=== PATIENT | female | born 1985 | race Caucasian/White ===

== ENCOUNTER 2020-09-19 14:25 | Emergency (ER) | payer OTHER, SELFPAY ==
--- NOTE | ~2020-09-19 | XR_ITS ---
EXAMINATION: XR CHEST CLINICAL INFORMATION: Chest wall pain COMPARISON: Chest radiographs 08/31/2010 TECHNIQUE: Portable upright AP view of the chest was obtained. FINDINGS: The lungs are clear. There is no pneumothorax, pleural reaction, or effusion. There is no airspace consolidation or groundglass opacity. Tapering at the right cardiophrenic angle is similar to prior study, likely areolar tissue. The hilar and mediastinal contours and bony structures are unremarkable. XR/XR chest 1V IMPRESSION: Unremarkable examination.
[2020-09-19 15:01] VITALS: BP 129/68; PULSE 85; RESP 18; TEMP 36.8; BMI 41.9
--- NOTE | 2020-09-19 15:43 | ED.GENADULT ---
HPI - General Adult General Chief complaint: General Medical Stated complaint: chest wall pain, back pain Time Seen by Provider: 09/19/20 15:43 Source: patient Mode of arrival: ambulatory Limitations: no limitations History of Present Illness HPI narrative: Female who reports history of cholecystectomy otherwise no significant past medical or surgical history presents ambulatory with complaint of state for the past several days he has had a cough and when she takes a deep breath and she will get pain on the right side of the chest in the pectoralis region and also from the cough she is getting pain in the epigastric region when she does cough. Does report body aches in the upper back and lower back. She otherwise denies any recent travel or sick contacts. No lower extremity swelling, shortness of breath, fever. Onset (ago): day(s) Location: chest Radiation: non-radiation Severity: moderate Severity scale (1-10): 3 Quality: aching Pain Consistency: intermittent Relieving factors: none Exacerbating factors: none Associated symptoms: chest pain and cough Treatments prior to arrival: none Related Data Previous Rx's Medication Instructions Recorded albuterol sulfate 2 puff INHALATION Q4-6H PRN #6.7 g 09/19/20 benzonatate [Tessalon Perles] 100 mg PO BID PRN #10 cap 09/19/20 naproxen 500 mg PO BID PRN #10 tab 09/19/20 Allergies Allergy/AdvReac Type Severity Reaction Status Date / Time No Known Allergies Allergy Unverified 03/13/20 15:35 [No Known Allergies*] Review of Systems Review of Systems: Constitutional: No Weight loss, No Fever, No Chills, No Night Sweats, No Fatigue, No Malaise ENT/Mouth: No Hearing loss, No Ear Pain, No Nasal Congestion, No Sinus Pain, No Hoarseness, No sore throat, No Rhinorrhea, No Swallowing Difficulty Eyes: No Eye Pain, No Swelling, No Redness, No Foreign Body, No Discharge, No Vision Changes Cardiovascular: + Chest Pain, No SOB, No Dyspnea on Exertion, No Orthopnea, No Edema, No Palpitations Respiratory: + Cough, No Sputum, No Wheezing, No Dyspnea Gastrointestinal: No Nausea, No Vomiting, No Diarrhea, No Constipation, No abdominal Pain, No Hematochezia, No Melena Genitourinary: no irregular bleeding, No Dysuria, No Urinary Frequency, No Hematuria, No Urinary Incontinence, No Urgency, No Flank Pain, No Urinary Flow Changes, No Hesitancy Musculoskeletal: No joint pain, No Myalgias, No Joint Swelling Skin: No Skin Lesions, No rash Neuro: No Weakness, No Numbness, No Paresthesias, No Loss of Consciousness, No Dizziness, No Headache Psych: No Social Issues Heme/Lymph: No Bruising, No Bleeding,No Lymphadenopathy Endocrine: No Polyuria, No Polydipsia, No Temperature Intolerance Yes all other systems are reviewed and are negative [facility] Past Medical History Medical History (Updated 09/19/20 @ 17:29 by Rommel Jack NP) Cholecystectomy planned Social History Social History Use of substances other than those prescribed or required for medical reasons: No Advance Directives: No Advance Directives Information Provided: No Physical Exam Vital Signs: Vital Signs: Last Vital Signs Temp 99.5 F 09/19/20 16:31 Pulse 113 H 09/19/20 16:31 Resp 18 09/19/20 16:31 BP 124/94 H 09/19/20 16:31 Pulse Ox 98 09/19/20 16:31 Body Mass Index 41.9 Reviewed Const: Other: Walked into room from patient sitting up with her headphones in and on her tablet. General: cooperative and healthy appearing; No acute distress or intoxicated appearing Nutritional Appearance: average body habitus Orientation/consciousness: patient oriented x3 HENMT: Head: Yes normal to inspection Ears: hearing grossly normal bilaterally Eyes: General: appearance normal, both eyes and all related structures Visual Hudson: normal visual hudson by confrontation Neck: Neck: Yes normal visual inspection, No positive Brudzinski's sign, No positive Kernig's sign and No tender Thyroid: Thyroid normal Chest: Chest palpation & inspection: normal inspection of the chest and tenderness pectoral muscle on the left Resp: Effort & Inspection: normal respiratory effort Auscultation: clear to auscultation bilaterally Cardio: Jugular venous distension: no JVD Rhythm: regular rhythm Heart sounds: S1 normal heart sound present and S2 normal heart sound present GI: Inspection: Yes normal to inspection Palpation (GI): Soft to palpation Percussion: Yes normal to percussion Auscultation: normal bowel sounds : General: Yes no CVA tenderness Back/Spine/Pelvis: Back: no CVA tenderness Skin: General skin exam: no rashes or lesions noted Neuro: General: patient oriented x3 Extrem: General: Yes normal to inspection Course Reevaluation(s) Reevaluation #1: Pain more consistent with myalgias/musculoskeletal and less likely acute ACS/pulmonary embolism PERC negative. Will check EKG, labs, chest x-ray and COVID swab. Medical Decision Making Lab Data Result diagrams: 09/19/20 16:14 09/19/20 16:14 Labs: Lab Results 09/19/20 09/19/20 09/19/20 Range/Units 16:14 16:14 16:14 WBC 7.7 (4.8-10.8) X10*3/uL RBC 4.90 (4.20-5.50) X10*6/uL Hgb 12.0 (12.0-16.0) g/dl Hct 39.2 (37-47) % MCV 80.0 (80-98) fL MCH 24.5 L (27.0-33.0) pg MCHC 30.6 L (31.0-35.0) g/dl RDW 15.6 (11.0-16.0) % Plt Count 261 (160-400) X10*3/uL MPV 11.3 (9.4-12.3) fL Immature Gran % (Auto) 0.3 (0.0-0.4) % Neut % (Auto) 66.1 (45-73) % Lymph % (Auto) 23.0 (20-40) % Hunt % (Auto) 5.7 (2-11) % Eos % (Auto) 4.6 H (0-4) % Baso % (Auto) 0.3 (0-2) % Lymph # (Auto) 1.8 (1.2-4.9) X10*3/uL Hunt # (Auto) 0.4 (0.1-1.2) X10*3/uL Eos # (Auto) 0.4 (0.0-0.4) X10*3/uL Baso # (Auto) 0.0 (0.0-0.2) X10*3/uL Abs Immat Gran (auto) 0.02 (0.00-0.03) X10*3/uL Absolute Neuts (auto) 5.1 (2.0-8.3) X10*3/uL Absolute Nucleated RBC 0.000 (0.0-0.012) X10*3/uL Nucleated RBC % (auto) 0.0 (0.0-0.2) /100WBC PT 13.0 (10.8-13.0) SEC INR 1.1 (0.9-1.1) APTT 32.6 (24.1-38.0) SEC Sodium 141 (135-145) mmol/L Potassium 3.7 (3.3-5.1) mmol/L Chloride 105 (96-108) mmol/L Carbon Dioxide 26 (22-29) mmol/L Anion Gap 14 (12-20) BUN 14 (9-16) mg/dL Creatinine 0.74 (0.5-1.4) mg/dL Estim Creat Clear Calc 138.6 Estimated GFR > 60 Random Glucose 126 H (60-115) mg/dL Calcium 9.1 (8.4-10.2) mg/dL Total Bilirubin 0.2 (0.0-1.0) mg/dL AST 22 (5-31) U/L ALT 40 H (0-31) U/L Alkaline Phosphatase 88 (39-117) U/L Troponin I High Sens (<3.5-17.0) ng/L Total Protein 7.3 (6.5-8.0) g/dL Albumin 4.4 (3.5-5.0) g/dL Urine Color Urine Appearance Urine pH (5.0-8.0) Ur Specific Harrell (1.005-1.025) Urine Protein (NEG-TRACE) MG/DL Urine Glucose (UA) (NEG) MG/DL Urine Ketones (NEG) MG/DL Urine Blood (NEG) Urine Nitrite (NEG) Ur Leukocyte Esterase (NEG) Urine Test (NEGATIVE) COVID-19 (GUILLAUME) (Negative) COVID-19 Clin Com 09/19/20 09/19/20 09/19/20 Range/Units 16:14 16:14 16:14 WBC (4.8-10.8) X10*3/uL RBC (4.20-5.50) X10*6/uL Hgb (12.0-16.0) g/dl Hct (37-47) % MCV (80-98) fL MCH (27.0-33.0) pg MCHC (31.0-35.0) g/dl RDW (11.0-16.0) % Plt Count (160-400) X10*3/uL MPV (9.4-12.3) fL Immature Gran % (Auto) (0.0-0.4) % Neut % (Auto) (45-73) % Lymph % (Auto) (20-40) % Hunt % (Auto) (2-11) % Eos % (Auto) (0-4) % Baso % (Auto) (0-2) % Lymph # (Auto) (1.2-4.9) X10*3/uL Hunt # (Auto) (0.1-1.2) X10*3/uL Eos # (Auto) (0.0-0.4) X10*3/uL Baso # (Auto) (0.0-0.2) X10*3/uL Abs Immat Gran (auto) (0.00-0.03) X10*3/uL Absolute Neuts (auto) (2.0-8.3) X10*3/uL Absolute Nucleated RBC (0.0-0.012) X10*3/uL Nucleated RBC % (auto) (0.0-0.2) /100WBC PT (10.8-13.0) SEC INR (0.9-1.1) APTT (24.1-38.0) SEC Sodium (135-145) mmol/L Potassium (3.3-5.1) mmol/L Chloride (96-108) mmol/L Carbon Dioxide (22-29) mmol/L Anion Gap (12-20) BUN (9-16) mg/dL Creatinine (0.5-1.4) mg/dL Estim Creat Clear Calc Estimated GFR Random Glucose (60-115) mg/dL Calcium (8.4-10.2) mg/dL Total Bilirubin (0.0-1.0) mg/dL AST (5-31) U/L ALT (0-31) U/L Alkaline Phosphatase (39-117) U/L Troponin I High Sens < 3.5 (<3.5-17.0) ng/L Total Protein (6.5-8.0) g/dL Albumin (3.5-5.0) g/dL Urine Color YELLOW Urine Appearance CLEAR Urine pH 6.0 (5.0-8.0) Ur Specific Harrell >= 1.030 H (1.005-1.025) Urine Protein NEG (NEG-TRACE) MG/DL Urine Glucose (UA) NEG (NEG) MG/DL Urine Ketones NEG (NEG) MG/DL Urine Blood TRACE (NEG) Urine Nitrite NEG (NEG) Ur Leukocyte Esterase NEG (NEG) Urine Test (NEGATIVE) COVID-19 (GUILLAUME) Negative (Negative) COVID-19 Clin Com See Note 09/19/20 Range/Units 16:14 WBC (4.8-10.8) X10*3/uL RBC (4.20-5.50) X10*6/uL Hgb (12.0-16.0) g/dl Hct (37-47) % MCV (80-98) fL MCH (27.0-33.0) pg MCHC (31.0-35.0) g/dl RDW (11.0-16.0) % Plt Count (160-400) X10*3/uL MPV (9.4-12.3) fL Immature Gran % (Auto) (0.0-0.4) % Neut % (Auto) (45-73) % Lymph % (Auto) (20-40) % Hunt % (Auto) (2-11) % Eos % (Auto) (0-4) % Baso % (Auto) (0-2) % Lymph # (Auto) (1.2-4.9) X10*3/uL Hunt # (Auto) (0.1-1.2) X10*3/uL Eos # (Auto) (0.0-0.4) X10*3/uL Baso # (Auto) (0.0-0.2) X10*3/uL Abs Immat Gran (auto) (0.00-0.03) X10*3/uL Absolute Neuts (auto) (2.0-8.3) X10*3/uL Absolute Nucleated RBC (0.0-0.012) X10*3/uL Nucleated RBC % (auto) (0.0-0.2) /100WBC PT (10.8-13.0) SEC INR (0.9-1.1) APTT (24.1-38.0) SEC Sodium (135-145) mmol/L Potassium (3.3-5.1) mmol/L Chloride (96-108) mmol/L Carbon Dioxide (22-29) mmol/L Anion Gap (12-20) BUN (9-16) mg/dL Creatinine (0.5-1.4) mg/dL Estim Creat Clear Calc Estimated GFR Random Glucose (60-115) mg/dL Calcium (8.4-10.2) mg/dL Total Bilirubin (0.0-1.0) mg/dL AST (5-31) U/L ALT (0-31) U/L Alkaline Phosphatase (39-117) U/L Troponin I High Sens (<3.5-17.0) ng/L Total Protein (6.5-8.0) g/dL Albumin (3.5-5.0) g/dL Urine Color Urine Appearance Urine pH (5.0-8.0) Ur Specific Harrell (1.005-1.025) Urine Protein (NEG-TRACE) MG/DL Urine Glucose (UA) (NEG) MG/DL Urine Ketones (NEG) MG/DL Urine Blood (NEG) Urine Nitrite (NEG) Ur Leukocyte Esterase (NEG) Urine Test NEGATIVE (NEGATIVE) COVID-19 (GUILLAUME) (Negative) COVID-19 Clin Com Imaging Data Chest x-ray: Radiologist's impression: [address] [id number] ReportSigned Patient: Rebeca Cabrera#: [id number]: 1985Acct:[id number]/Sex: 34 / FADM Date: 09/19/20Loc: [address]: Ordering Physician: Rommel Jack NP Date of Service: 09/19/20 Procedure(s): XR chest 1V Accession Number(s): [id number] cc: Rommel Jack PRIVATE WE[employer] ADVISOR~ EXAMINATION: XR CHEST CLINICAL INFORMATION: Chest wall pain COMPARISON: Chest radiographs 08/31/2010 TECHNIQUE: Portable upright AP view of the chest was obtained. FINDINGS: The lungs are clear. There is no pneumothorax, pleural reaction, or effusion. There is no airspace consolidation or groundglass opacity. Tapering at the right cardiophrenic angle is similar to prior study, likely areolar tissue. The hilar and mediastinal contours and bony structures are unremarkable. XR/XR chest 1V IMPRESSION: Unremarkable examination. Dictated By:KALPANA GUERRERO MDSigned By:<Electronically signed by KALPANA GUERRERO MD in OV>09/19/20 1713 DD/ [id number]/TT: Medical Receptionist Biller: KAREN ECG Data Interpretation: Normal sinus rhythm Rate [address] segment elevation No previous Discharge Plan Discharge Clinical Impression: Cough, Atypical chest pain Patient Disposition: Home, Self-Care Instructions: Acute Cough (ED), Chest Wall Pain (ED) Additional Instructions: If blood work was overall reassuring including her chest x-ray and EKG The pain that you are having the chest is from the muscle strain from the cough Drink plenty of fluids Take [id number] cough medicine as reviewed You can use inhaler to help with cough Warm compresses chest Return if any concerns or worsening symptoms Otherwise follow up with primary care DrDominique discuss Thank you Prescriptions: New albuterol sulfate 90 mcg/actuation HFA aerosol inhaler 2 puff inhalation Q4-6H PRN (Reason: shortness of breath or wheezing) Qty: 6.7 RF: 0 benzonatate [Tessalon Perles] 100 mg capsule 100 mg PO BID PRN (Reason: cough) Qty: 10 RF: 0 naproxen 500 mg tablet 500 mg PO BID PRN (Reason: pain) Qty: 10 RF: 0 Referrals: Lisette Reynaga MD [Primary Care Provider] - 1 week
--- NOTE | 2020-09-19 15:50 | ECG_ITS ---
Test Reason : CHEST PAIN Blood Pressure : / mmHG Vent. Rate : 086 BPM Atrial Rate : 086 BPM P-R Int : 148 ms QRS Dur : 084 ms QT Int : 368 ms P-R-T Axes : 040 018 005 degrees QTc Int : 440 ms Normal sinus rhythm Normal ECG When compared with ECG of 19-APR-2013 19:09, No significant change was found Referred By: Rommel Jack Electronically Signed By:LINDA PATINO
[2020-09-19 16:20] LABS: MANUAL DIFF FLAG NO
[2020-09-19 16:23] LABS: Basophils Percent Auto 0.3 % (0-2); Eosinophils Absolute Auto 0.4 X10*3/uL (0.0-0.4); Eosinophils Percent Auto 4.6 % (0-4); Hematocrit 39.2 % (37-47); Imm Gran Abs Auto 0.02 X10*3/uL (0.00-0.03); Imm Gran Pct Auto 0.3 % (0.0-0.4); Lymphocytes Absolute Auto 1.8 X10*3/uL (1.2-4.9); Mean Corpuscular HGB Conc 30.6 g/dl (31.0-35.0); Mean Corpuscular Hemoglobin 24.5 pg (27.0-33.0); Mean Platelet Volume 11.3 fL (9.4-12.3); Monocytes Absolute Auto 0.4 X10*3/uL (0.1-1.2); Monocytes Percent Auto 5.7 % (2-11); Neutrophils Absolute Auto 5.1 X10*3/uL (2.0-8.3); Neutrophils Percent Auto 66.1 % (45-73); Platelet Count 261 X10*3/uL (160-400); Red Cell Distribution Width 15.6 % (11.0-16.0); White Blood Count 7.7 X10*3/uL (4.8-10.8)
[2020-09-19 16:31] VITALS: BP 124/94; PULSE 113; RESP 18; TEMP 37.5; O2SAT 98
[2020-09-19 16:34] LABS: INTERNATIONAL NORM RATIO 1.1 (0.9-1.1); UPreg QC Valid YES; Urine Pregnancy NEGATIVE (NEGATIVE)
[2020-09-19 16:35] LABS: Glucose Urine UA NEG (NEG); Leukocyte Esterase Urine NEG (NEG); Nitrite Urine NEG (NEG); Specific Gravity - Urine >= 1.030 (1.005-1.025); Urine Blood TRACE (NEG); Urine Ketones NEG (NEG); Urine Protein NEG (NEG-TRACE)
[2020-09-19 16:36] LABS: Partial Thromboplastin Time 32.6 SEC (24.1-38.0)
[2020-09-19 16:40] LABS: COVID-19 Test Negative (Negative); IDNOW Serial# 9DD0AD1C
[2020-09-19 16:44] LABS: Alanine Aminotransferase 40 U/L (0-31); Albumin Level 4.4 g/dL (3.5-5.0); Alkaline Phosphatase 88 U/L (39-117); Anion Gap 14 (12-20); Aspartate Amino Transferase 22 U/L (5-31); Bilirubin Total 0.2 mg/dL (0.0-1.0); Blood Urea Nitrogen 14 mg/dL (9-16); Calcium 9.1 mg/dL (8.4-10.2); Carbon Dioxide 26 mmol/L (22-29); Chloride 105 mmol/L (96-108); Creatinine Clr Calc Pharmacy 138.6; Estimated Glomerular Filt Rate > 60; Glucose Random 126 mg/dL (60-115); Potassium 3.7 mmol/L (3.3-5.1); Sodium 141 mmol/L (135-145); Total Protein 7.3 g/dL (6.5-8.0)
[2020-09-19 16:48] LABS: Troponin-I High Sensitivity < 3.5 ng/L (<3.5-17.0)
[2020-09-19 16:51] LABS: Appearance Urine CLEAR; Color Urine YELLOW
[2020-09-19] MEDS: Acetaminophen 325 MG TABLET 650 MG PO (17:40)
[2020-09-19 17:44] LABS: RBC Urine 0-2 /HPF (0); Squamous Epithelial Cell Urine 2+ /LPF; WBC Urine 0 /HPF (0-4)
== END 2020-09-19 19:04 | disposition home or self-care (01) ==
PROVIDERS: Nurse Practitioner Primary Care; Emergency Provider Emergency Medicine; PCP Internal Medicine
DX: R07.89 Other chest pain (principal); R05 Cough; M54.5 Low back pain; Z20.822 Contact with and (suspected) exposure to COVID-19; Z79.899 Other long term (current) drug therapy
CPT/HCPCS: 36415; 71045; 80053; 81001; 81025; 84484; 85025; 85610; 85730; 87635; 93005; 99283; 99284

== ENCOUNTER 2020-12-11 13:17 | Outpatient (REF) | payer OTHER, SELFPAY ==
[2020-12-11 15:37] LABS: HCG Quantitative 676 mIU/mL
== END 2020-12-11 13:18 | disposition home or self-care (01) ==
LOC: HO.LAB 13:17
PROVIDERS: PCP Internal Medicine; Visit Provider Advanced Practice Midwife
DX: O20.9 Hemorrhage in early pregnancy, unspecified (principal)
CPT/HCPCS: 36415; 81025; 84702; 99202

== ENCOUNTER 2020-12-13 10:50 | Outpatient (REF) | payer OTHER, SELFPAY ==
[2020-12-13 11:41] LABS: HCG Quantitative 1011 mIU/mL
== END 2020-12-13 10:51 | disposition home or self-care (01) ==
LOC: HO.LAB 10:50
PROVIDERS: PCP Internal Medicine; Visit Provider Advanced Practice Midwife
DX: O20.9 Hemorrhage in early pregnancy, unspecified (principal)
CPT/HCPCS: 36415; 84702; 86850; 86900; 86901

== ENCOUNTER 2020-12-13 11:03 | Emergency (ER) | payer OTHER, SELFPAY ==
--- NOTE | ~2020-12-13 | US_ITS ---
EXAMINATION: US OB PELVIC AND TRANSVAGINAL CLINICAL INFORMATION: , rule out ectopic. Quant 1011. COMPARISON: None TECHNIQUE: Transabdominal and transvaginal imaging of pelvis is performed. FINDINGS: The uterus is retroverted measuring 8.95 cm in length, 4.67 cm in AP. Endometrial thickness measures 2.15 cm. No intrauterine gestational sac seen. The right ovary is removed. The left ovary measures 3.7 x 2.3 x 3.0 cm and volume 13.44 mL. There is an anechoic cyst measuring 2.0 x 1.5 x 1.8 cm. Within the left adnexa, there is an anechoic cystic structure with echogenic thick wall measuring 0.50 x 0.61 x 0.48 cm suspicious for an ectopic gestational sac with likely yolk sac. It measures approximately 5 weeks and 0 days. No pole seen. There is a left paraovarian cyst measuring 1.2 x 1.2 x 1.2 cm. There is small amount of free fluid in the cul-de-sac. US/US OB pelvic and transvaginal IMPRESSION: Suspect left adnexa ectopic measuring 5 weeks 0 days. 2.0 cm ovarian cyst and a left paraovarian cyst measuring 1.2 cm. The right ovary is not visualized likely surgically removed. The uterus is unremarkable except for a thickened endometrium measuring 2.15 cm and no intrauterine gestational sac. Recommend followup ultrasound in 2 weeks.
[2020-12-13 11:20] VITALS: BP 121/60; PULSE 92; RESP 18; TEMP 37; O2SAT 96; BMI 43.5
--- NOTE | 2020-12-13 12:32 | ED.FEMALEGU ---
HPI - Female Genitourinary General Chief complaint: Vaginal Bleeding <DOMINIQUE Villarreal - Last Filed: 12/13/20 18:00> Stated complaint: 5 weeks , spotting <DOMINIQUE Villarreal - Last Filed: 12/13/20 18:00> Time Seen by Provider: 12/13/20 11:25 <DOMINIQUE Villarreal - Last Filed: 12/13/20 18:00> History of Present Illness HPI Narrative: Patient complains of some spotting, she is 5 weeks , she was seen in the [facility] by the nurse practitioner who did a 1st beta hCG and told her to come back today for a 2nd beta hCG. The patient says she does not have any spotting today but she has had very mild intermittent pelvic discomfort, she has no discomfort at this time no nausea or vomiting no dysuria <DOMINIQUE Villarreal - Last Filed: 12/13/20 18:00> Related Data Home medications: Previous Rx's Medication Instructions Recorded albuterol sulfate 2 puff INHALATION Q4-6H PRN #6.7 g 09/19/20 <DOMINIQUE Villarreal - Last Filed: 12/13/20 18:00> Allergies/Adverse reactions: Allergies Allergy/AdvReac Type Severity Reaction Status Date / Time No Known Allergies Allergy Verified 12/11/20 13:23 [No Known Allergies*] <DOMINIQUE Villarreal - Last Filed: 12/13/20 18:00> Review of Systems Review of Systems: , spotting, and mild pelvic intermittent discomfort other positives Negative no fever no chills no dizziness no weakness no fainting no feeling faint no headache no neck pain no chest pain no shortness of breath no heavy bleeding no cramping no pain now no nausea vomiting or diarrhea no dysuria no frequency no skin rash <DOMINIQUE Villarreal Last Filed: 12/13/20 18:00> Yes all other systems are reviewed and are negative <DOMINIQUE Villarreal Last Filed: 12/13/20 18:00> PMFSH Past Medical History Source: nursing notes reviewed <DOMINIQUE Villarreal Last Filed: 12/13/20 18:00> Medical History: Medical History (Updated 12/13/20 @ 20:37 by DOMINIQUE Rivers) Anxiety Asthma section wound complication Cholecystectomy planned Gall bladder stones Obesity <DOMINIQUE Villarreal Last Filed: 12/13/20 18:00> Surgical History: Surgical History (Updated 12/13/20 @ 18:44 by Heri Meraz MD) Hx of removal of ovary <DOMINIQUE Villarreal - Last Filed: 12/13/20 18:00> Family History Family History: Family History (Updated 12/11/20 @ 13:35 by Kyle Dsouza [facility]) Maternal Grandmother Cancer Father Heart attack <DOMINIQUE Villarreal - Last Filed: 12/13/20 18:00> Social History Social History: Social History (Updated 12/11/20 @ 13:31 by Kyle Dsouza [facility]) Alcohol intake: never Patient Tobacco Use Status: Current someday Tobacco user Cigarettes Per Day: 2 Advance Directives: Yes Advance Directives Information Provided: Yes Advance Directives on File: No Patient : Yes Gender identity: female <DOMINIQUE Villarreal - Last Filed: 12/13/20 18:00> Physical Exam Vital Signs: Vital Signs: Last Vital Signs Temp 98.1 F 12/13/20 20:13 Pulse 73 12/13/20 20:13 Resp 18 12/13/20 20:13 BP 130/57 L 12/13/20 20:13 Pulse Ox 98 12/13/20 20:13 Body Mass Index 43.5 <DOMINIQUE Villarreal - Last Filed: 12/13/20 18:00> Vital Signs: Last Vital Signs Temp 98.1 F 12/13/20 20:13 Pulse 73 12/13/20 20:13 Resp 18 12/13/20 20:13 BP 130/57 L 12/13/20 20:13 Pulse Ox 98 12/13/20 20:13 Body Mass Index 43.5 <DOMINIQUE Rivers - Last Filed: 12/13/20 20:38> General appearance is no acute distress, comfortable and cooperative The neck is supple Chest is clear to auscultation bilateral with full symmetrical breath sounds The abdomen is soft nontender Pelvic deferred Back is no CVA tenderness Extremities no edema no rash Neuro no motor or sensory deficit <DOMINIQUE Villarreal - Last Filed: 12/13/20 18:00> Course Course Course Narrative: Initial beta HCG 2 days ago was 676, today's beta hCG is 1011 Patient remains come and comfortable throughout visit with no pain or bleeding Ultrasound showed a possible early ectopic with a left adnexal mass, cystic mass that contains a structure suspicious for gestational sac likely yolk sac which is consistent with 5 weeks [address] meraz was paged, I communicated with him by text and he advised draw blood tests and this is very likely an ectopic and he will discuss with the patient whether methotrexate now would be an option or if care will be delayed he is coming to the hospital soon This case was signed out to physician certified ophthalmic surgical assistant karyn with labs pending, patient very comfortable and she will discuss best plan with Dr. Meraz <DOMINIQUE Villarreal - Last Filed: 12/13/20 18:00> 2037---OBGYN Dr. Meraz evaluated patient in the ED and discussed options. Patient decided to wait 48 hours for repeat hCG and then follow up in outpatient office. Worrisome signs and symptoms and strict return precautions were discussed including any vaginal bleeding, discharge, or pain. Patient verbalized understanding, is to follow-up in 48 hours -labs otherwise unremarkable, beta quant 1011 <DOMINIQUE Rivers - Last Filed: 12/13/20 20:38> MDM - Female Genitourinary Lab Data Result diagrams: : 12/13/20 18:57 12/13/20 18:57 <DOMINIQUE Villarreal - Last Filed: 12/13/20 18:00> Labs: Lab Results 12/13/20 12/13/20 12/13/20 Range/Units 18:57 18:57 18:57 WBC 10.6 (4.8-10.8) X10*3/uL RBC 5.15 (4.20-5.50) X10*6/uL Hgb 12.8 (12.0-16.0) g/dl Hct 40.6 (37-47) % MCV 78.8 L (80-98) fL MCH 24.9 L (27.0-33.0) pg MCHC 31.5 (31.0-35.0) g/dl RDW 16.1 H (11.0-16.0) % Plt Count 239 (160-400) X10*3/uL MPV 11.5 (9.4-12.3) fL Immature Gran % (Auto) 0.5 H (0.0-0.4) % Neut % (Auto) 70.5 (45-73) % Lymph % (Auto) 19.0 L (20-40) % Jefferson % (Auto) 6.5 (2-11) % Eos % (Auto) 3.3 (0-4) % Baso % (Auto) 0.2 (0-2) % Lymph # (Auto) 2.0 (1.2-4.9) X10*3/uL Jefferson # (Auto) 0.7 (0.1-1.2) X10*3/uL Eos # (Auto) 0.4 (0.0-0.4) X10*3/uL Baso # (Auto) 0.0 (0.0-0.2) X10*3/uL Abs Immat Gran (auto) 0.05 H (0.00-0.03) X10*3/uL Absolute Neuts (auto) 7.5 (2.0-8.3) X10*3/uL Absolute Nucleated RBC 0.000 (0.0-0.012) X10*3/uL Nucleated RBC % (auto) 0.0 (0.0-0.2) /100WBC Sodium 136 (135-145) mmol/L Potassium 4.4 (3.3-5.1) mmol/L Chloride 105 (96-108) mmol/L Carbon Dioxide 23 (22-29) mmol/L Anion Gap 12 (12-20) BUN 15 (9-16) mg/dL Creatinine 0.70 (0.5-1.4) mg/dL Estim Creat Clear Calc 148.3 Estimated GFR > 60 Random Glucose 119 H (60-115) mg/dL Calcium 9.3 (8.4-10.2) mg/dL Total Bilirubin 0.2 (0.0-1.0) mg/dL Direct Bilirubin < 0.2 (0.0-0.5) mg/dL AST 23 (5-31) U/L ALT 41 H (0-31) U/L Alkaline Phosphatase 80 (39-117) U/L Total Protein 7.0 (6.5-8.0) g/dL Albumin 4.3 (3.5-5.0) g/dL Urine Color Urine Appearance Urine pH (5.0-8.0) Ur Specific O[place]phant (1.005-1.025) Urine Protein (NEG-TRACE) MG/DL Urine Glucose (UA) (NEG) MG/DL Urine Ketones (NEG) MG/DL Urine Blood (NEG) Urine Nitrite (NEG) Ur Leukocyte Esterase (NEG) Urine RBC (0) /HPF Urine WBC (0-4) /HPF Ur Squamous Epith Cells /LPF Urine Bacteria /LPF Urine Mucus /LPF Blood Type A Positive 12/13/20 Range/Units 20:02 WBC (4.8-10.8) X10*3/uL RBC (4.20-5.50) X10*6/uL Hgb (12.0-16.0) g/dl Hct (37-47) % MCV (80-98) fL MCH (27.0-33.0) pg MCHC (31.0-35.0) g/dl RDW (11.0-16.0) % Plt Count (160-400) X10*3/uL MPV (9.4-12.3) fL Immature Gran % (Auto) (0.0-0.4) % Neut % (Auto) (45-73) % Lymph % (Auto) (20-40) % Jefferson % (Auto) (2-11) % Eos % (Auto) (0-4) % Baso % (Auto) (0-2) % Lymph # (Auto) (1.2-4.9) X10*3/uL Jefferson # (Auto) (0.1-1.2) X10*3/uL Eos # (Auto) (0.0-0.4) X10*3/uL Baso # (Auto) (0.0-0.2) X10*3/uL Abs Immat Gran (auto) (0.00-0.03) X10*3/uL Absolute Neuts (auto) (2.0-8.3) X10*3/uL Absolute Nucleated RBC (0.0-0.012) X10*3/uL Nucleated RBC % (auto) (0.0-0.2) /100WBC Sodium (135-145) mmol/L Potassium (3.3-5.1) mmol/L Chloride (96-108) mmol/L Carbon Dioxide (22-29) mmol/L Anion Gap (12-20) BUN (9-16) mg/dL Creatinine (0.5-1.4) mg/dL Estim Creat Clear Calc Estimated GFR Random Glucose (60-115) mg/dL Calcium (8.4-10.2) mg/dL Total Bilirubin (0.0-1.0) mg/dL Direct Bilirubin (0.0-0.5) mg/dL AST (5-31) U/L ALT (0-31) U/L Alkaline Phosphatase (39-117) U/L Total Protein (6.5-8.0) g/dL Albumin (3.5-5.0) g/dL Urine Color YELLOW Urine Appearance CLEAR Urine pH 6.0 (5.0-8.0) Ur Specific O[place]phant >= 1.030 H (1.005-1.025) Urine Protein NEG (NEG-TRACE) MG/DL Urine Glucose (UA) NEG (NEG) MG/DL Urine Ketones NEG (NEG) MG/DL Urine Blood TRACE (NEG) Urine Nitrite NEG (NEG) Ur Leukocyte Esterase NEG (NEG) Urine RBC 0-2 (0) /HPF Urine WBC 0-2 (0-4) /HPF Ur Squamous Epith Cells 1+ /LPF Urine Bacteria NONE /LPF Urine Mucus 1+ /LPF Blood Type <DOMINIQUE Villarreal - Last Filed: 12/13/20 18:00> Lab Results 12/13/20 12/13/20 12/13/20 Range/Units 18:57 18:57 18:57 WBC 10.6 (4.8-10.8) X10*3/uL RBC 5.15 (4.20-5.50) X10*6/uL Hgb 12.8 (12.0-16.0) g/dl Hct 40.6 (37-47) % MCV 78.8 L (80-98) fL MCH 24.9 L (27.0-33.0) pg MCHC 31.5 (31.0-35.0) g/dl RDW 16.1 H (11.0-16.0) % Plt Count 239 (160-400) X10*3/uL MPV 11.5 (9.4-12.3) fL Immature Gran % (Auto) 0.5 H (0.0-0.4) % Neut % (Auto) 70.5 (45-73) % Lymph % (Auto) 19.0 L (20-40) % Jefferson % (Auto) 6.5 (2-11) % Eos % (Auto) 3.3 (0-4) % Baso % (Auto) 0.2 (0-2) % Lymph # (Auto) 2.0 (1.2-4.9) X10*3/uL Jefferson # (Auto) 0.7 (0.1-1.2) X10*3/uL Eos # (Auto) 0.4 (0.0-0.4) X10*3/uL Baso # (Auto) 0.0 (0.0-0.2) X10*3/uL Abs Immat Gran (auto) 0.05 H (0.00-0.03) X10*3/uL Absolute Neuts (auto) 7.5 (2.0-8.3) X10*3/uL Absolute Nucleated RBC 0.000 (0.0-0.012) X10*3/uL Nucleated RBC % (auto) 0.0 (0.0-0.2) /100WBC Sodium 136 (135-145) mmol/L Potassium 4.4 (3.3-5.1) mmol/L Chloride 105 (96-108) mmol/L Carbon Dioxide 23 (22-29) mmol/L Anion Gap 12 (12-20) BUN 15 (9-16) mg/dL Creatinine 0.70 (0.5-1.4) mg/dL Estim Creat Clear Calc 148.3 Estimated GFR > 60 Random Glucose 119 H (60-115) mg/dL Calcium 9.3 (8.4-10.2) mg/dL Total Bilirubin 0.2 (0.0-1.0) mg/dL Direct Bilirubin < 0.2 (0.0-0.5) mg/dL AST 23 (5-31) U/L ALT 41 H (0-31) U/L Alkaline Phosphatase 80 (39-117) U/L Total Protein 7.0 (6.5-8.0) g/dL Albumin 4.3 (3.5-5.0) g/dL Urine Color Urine Appearance Urine pH (5.0-8.0) Ur Specific [place] (1.005-1.025) Urine Protein (NEG-TRACE) MG/DL Urine Glucose (UA) (NEG) MG/DL Urine Ketones (NEG) MG/DL Urine Blood (NEG) Urine Nitrite (NEG) Ur Leukocyte Esterase (NEG) Urine RBC (0) /HPF Urine WBC (0-4) /HPF Ur Squamous Epith Cells /LPF Urine Bacteria /LPF Urine Mucus /LPF Blood Type A Positive 12/13/20 Range/Units 20:02 WBC (4.8-10.8) X10*3/uL RBC (4.20-5.50) X10*6/uL Hgb (12.0-16.0) g/dl Hct (37-47) % MCV (80-98) fL MCH (27.0-33.0) pg MCHC (31.0-35.0) g/dl RDW (11.0-16.0) % Plt Count (160-400) X10*3/uL MPV (9.4-12.3) fL Immature Gran % (Auto) (0.0-0.4) % Neut % (Auto) (45-73) % Lymph % (Auto) (20-40) % Jefferson % (Auto) (2-11) % Eos % (Auto) (0-4) % Baso % (Auto) (0-2) % Lymph # (Auto) (1.2-4.9) X10*3/uL Jefferson # (Auto) (0.1-1.2) X10*3/uL Eos # (Auto) (0.0-0.4) X10*3/uL Baso # (Auto) (0.0-0.2) X10*3/uL Abs Immat Gran (auto) (0.00-0.03) X10*3/uL Absolute Neuts (auto) (2.0-8.3) X10*3/uL Absolute Nucleated RBC (0.0-0.012) X10*3/uL Nucleated RBC % (auto) (0.0-0.2) /100WBC Sodium (135-145) mmol/L Potassium (3.3-5.1) mmol/L Chloride (96-108) mmol/L Carbon Dioxide (22-29) mmol/L Anion Gap (12-20) BUN (9-16) mg/dL Creatinine (0.5-1.4) mg/dL Estim Creat Clear Calc Estimated GFR Random Glucose (60-115) mg/dL Calcium (8.4-10.2) mg/dL Total Bilirubin (0.0-1.0) mg/dL Direct Bilirubin (0.0-0.5) mg/dL AST (5-31) U/L ALT (0-31) U/L Alkaline Phosphatase (39-117) U/L Total Protein (6.5-8.0) g/dL Albumin (3.5-5.0) g/dL Urine Color YELLOW Urine Appearance CLEAR Urine pH 6.0 (5.0-8.0) Ur Specific [place] >= 1.030 H (1.005-1.025) Urine Protein NEG (NEG-TRACE) MG/DL Urine Glucose (UA) NEG (NEG) MG/DL Urine Ketones NEG (NEG) MG/DL Urine Blood TRACE (NEG) Urine Nitrite NEG (NEG) Ur Leukocyte Esterase NEG (NEG) Urine RBC 0-2 (0) /HPF Urine WBC 0-2 (0-4) /HPF Ur Squamous Epith Cells 1+ /LPF Urine Bacteria NONE /LPF Urine Mucus 1+ /LPF Blood Type <DOMINIQUE Rivers - Last Filed: 12/13/20 20:38> Discharge Plan Discharge Clinical Impression: Early stage of <DOMINIQUE Villarreal - Last Filed: 12/13/20 18:00> Patient Disposition: Home, Self-Care <DOMINIQUE Villarreal - Last Filed: 12/13/20 18:00> Instructions: Early Labor Signs (ED) <DOMINIQUE Villarreal - Last Filed: 12/13/20 18:00> Additional Instructions: You to follow-up for repeat beta quant, blood test in 48 hours, this is crucial If you develop any abdominal pain, vaginal bleeding, vaginal discharge, nausea or vomiting please return to the ED immediately It is possible this is an ectopic , this may also be a spontaneous or less likely a viable <DOMINIQUE Villarreal - Last Filed: 12/13/20 18:00> Prescriptions: No Action albuterol sulfate 90 mcg/actuation HFA aerosol inhaler 2 puff inhalation Q4-6H PRN (Reason: shortness of breath or wheezing) Qty: 6.7 RF: 0 <DOMINIQUE Villarreal - Last Filed: 12/13/20 18:00> Referrals: Heri Meraz MD [Physician] - 2 days <DOMINIQUE Villarreal - Last Filed: 12/13/20 18:00>
[2020-12-13 13:03] VITALS: BP 126/60; PULSE 84; RESP 16; TEMP 36.9; O2SAT 98
[2020-12-13 15:55] VITALS: BP 114/61; PULSE 78; RESP 16; TEMP 37.1; O2SAT 98
--- NOTE | 2020-12-13 18:43 | PM.GYNCN ---
MEDICAL FRONT DESK SPECIALIST - CN: HPI Data of Consult Consult date: 12/13/20 Primary Care Provider: Lisette Poon MD Consult Narrative Narrative: I was consulted regarding Rebeca Cabrera is a 35 year old female who presented emergency room with some vaginal spotting. The patient was seen in the office 2 days ago the same complaint, no pelvic pain. HCG done 2 days ago was 676, repeat hCG today went up to 1011. Rh is positive no vaginal discharge or any other complaints. Ultrasound showed the following: The uterus is retroverted measuring 8.95 cm in length, 4.67 cm in AP. Endometrial thickness measures 2.15 cm. No intrauterine gestational sac seen. The right ovary is removed. The left ovary measures 3.7 x 2.3 x 3.0 cm and volume 13.44 mL. There is an anechoic cyst measuring 2.0 x 1.5 x 1.8 cm. Within the left adnexa, there is an anechoic cystic structure with echogenic thick wall measuring 0.50 x 0.61 x 0.48 cm suspicious for an ectopic gestational sac with likely yolk sac. It measures approximately 5 weeks and 0 days.No pole seen. There is a left paraovarian cyst measuring 1.2 x 1.2 x 1.2 cm. There is small amount of free fluid in the cul-de-sac cc:: CC: AIR CONDITIONING ENGINEER - Review of Systems Review of Systems ROS Unobtainable: All systems reviewed & are unremarkable except as noted in HPI and below Cardiovascular: Denies Palpatations, Loss of consciousness and Chest pain Respiratory: Denies Cough, Wheezing and Shortness of breath Musculoskeletal: Denies Low back pain Gastrointestinal: Denies Heartburn, Constipation, Diarrhea, Nausea and Vomiting Genitourinary: Denies Pain with urination, Burning with urination and Urinary frequency Neurological: Denies Migranes Psychological: Denies Depression OB [facility] Past Medical History Medical History (Updated 12/13/20 @ 18:47 by Heri Meraz MD) Anxiety Asthma section wound complication Cholecystectomy planned Gall bladder stones Obesity Family History Family History (Updated 12/11/20 @ 13:35 by Kyle Dsouza CMA) Maternal Grandmother Cancer Father Heart attack Surgical History Surgical History (Updated 12/11/20 @ 14:25 by Marylu Maldonado CNM) Hx of removal of ovary Social History Social History (Updated 12/11/20 @ 13:31 by Kyle Dsouza [facility]) Alcohol intake: never Patient Tobacco Use Status: Current someday Tobacco user Cigarettes Per Day: 2 Advance Directives: Yes Advance Directives Information Provided: Yes Advance Directives on File: No Patient : Yes Gender identity: female Meds Allergies Allergy/AdvReac Type Severity Reaction Status Date / Time No Known Allergies Allergy Verified 12/11/20 13:23 [No Known Allergies*] MEDICAL FRONT DESK SPECIALIST Physical Exam Vitals Vital signs: Temp Pulse Resp BP Pulse Ox 98.7 F 78 16 114/61 98 12/13/20 15:55 12/13/20 15:55 12/13/20 15:55 12/13/20 15:55 12/13/20 15:55 Body Mass Index 43.5 Constitutional General Appearance: Healthy appearing, Well-nourished and Well-developed Psychiatric Mood and Affect: active and alert, normal mood and normal affect Skin Appearance: No rashes and No lesions Lungs Respiratory Effort: No intercostal retractions Auscultation: Clear to auscultation Cardiovascular Auscultation: RRR Abdomen Auscultation/Inspection/Palpation: Normal bowel sounds, Soft, Non-distended and No tenderness Female Genitalia (Pelvic) Exam: Deferred Assessment and Plan (1) Early stage of : Status: Acute Discussed with the patient the rate of rise of HCG level is above the 49%, which is expected in the majority of normal intrauterine gestation cannot not rule out ectopic , in addition discussed the patient the ultrasound finding suspicion of left ectopic with no evidence of IUP which can occur at this low HCG level in early is.? Differential diagnosis discussed with the patient included either early ectopic versus early SAB with a small possibility of normal intrauterine gestation.? Options of treatment were discussed with the patient including expected management for the coming 48 hours and repeat HCG versus treat as if she has tubal with methotrexate, which is the preferred method of treatment given the finding on ultrasound.? All the pros and cons and risks and benefits of each treatment approach were discussed with the patient.? The advantage of expectant management were discussed with the patient, being prevention of possible exposure to teratogenicity or risk of spontaneous in case of an early normal , the risk being delayed diagnosis and treatment of ectopic and possible rupture with all its possible consequences including intra-abdominal bleed and possible .? The advantage of early treatment of presumed tubal with methotrexate was discussed with the patient, including but not limited to reducing the risk of ruptured ectopic with all its potential consequences, in addition discussed with the patient methotrexate treatment risks including but not limited to, possible exposure to methotrexate to a normal intra and and increase the risk of spontaneous and congenital anomalies.? The patient decided to wait 48 hours repeat HCG and treat accordingly.? Instructions given to the patient to the importance of compliance and timely HCG follow-up in 48 hours for an early and accurate diagnosis, and to call or go to the emergency room if pain or vaginal bleeding occurs, all questions answered, the patient verbalized understanding and agreed with the plan. Follow-up in 48 hours for further management.
[2020-12-13 19:01] LABS: MANUAL DIFF FLAG NO
[2020-12-13 19:02] LABS: Basophils Percent Auto 0.2 % (0-2); Eosinophils Absolute Auto 0.4 X10*3/uL (0.0-0.4); Eosinophils Percent Auto 3.3 % (0-4); Hematocrit 40.6 % (37-47); Hemoglobin 12.8 g/dl (12.0-16.0); Imm Gran Abs Auto 0.05 X10*3/uL (0.00-0.03); Imm Gran Pct Auto 0.5 % (0.0-0.4); Mean Corpuscular HGB Conc 31.5 g/dl (31.0-35.0); Mean Corpuscular Hemoglobin 24.9 pg (27.0-33.0); Mean Corpuscular Volume 78.8 fL (80-98); Mean Platelet Volume 11.5 fL (9.4-12.3); Monocytes Absolute Auto 0.7 X10*3/uL (0.1-1.2); Monocytes Percent Auto 6.5 % (2-11); Neutrophils Absolute Auto 7.5 X10*3/uL (2.0-8.3); Neutrophils Percent Auto 70.5 % (45-73); Platelet Count 239 X10*3/uL (160-400); Red Blood Count 5.15 X10*6/uL (4.20-5.50); Red Cell Distribution Width 16.1 % (11.0-16.0); White Blood Count 10.6 X10*3/uL (4.8-10.8)
[2020-12-13 19:37] LABS: Alanine Aminotransferase 41 U/L (0-31); Albumin Level 4.3 g/dL (3.5-5.0); Alkaline Phosphatase 80 U/L (39-117); Anion Gap 12 (12-20); Aspartate Amino Transferase 23 U/L (5-31); Bilirubin Direct < 0.2 mg/dL (0.0-0.5); Bilirubin Total 0.2 mg/dL (0.0-1.0); Blood Urea Nitrogen 15 mg/dL (9-16); Calcium 9.3 mg/dL (8.4-10.2); Carbon Dioxide 23 mmol/L (22-29); Chloride 105 mmol/L (96-108); Creatinine Clr Calc Pharmacy 148.3; Estimated Glomerular Filt Rate > 60; Glucose Random 119 mg/dL (60-115); Potassium 4.4 mmol/L (3.3-5.1); Sodium 136 mmol/L (135-145)
[2020-12-13 20:12] LABS: Glucose Urine UA NEG (NEG); Leukocyte Esterase Urine NEG (NEG); Nitrite Urine NEG (NEG); Specific Gravity - Urine >= 1.030 (1.005-1.025); Urine Blood TRACE (NEG); Urine Ketones NEG (NEG); Urine Protein NEG (NEG-TRACE)
[2020-12-13 20:13] VITALS: BP 130/57; PULSE 73; RESP 18; TEMP 36.7; O2SAT 98
[2020-12-13 20:16] LABS: Appearance Urine CLEAR; Color Urine YELLOW
[2020-12-13 20:35] LABS: Mucus Urine 1+ /LPF; RBC Urine 0-2 /HPF (0); Squamous Epithelial Cell Urine 1+ /LPF; WBC Urine 0-2 /HPF (0-4)
--- NOTE | 2020-12-13 21:08 | PC.NURSE ---
pt was able to eat and hydrate before discharge. pt in a prone position on stretcher while on phone. pt understands to return for increased abdominal pain, vaginal bleeding or dizziness.
== END 2020-12-13 21:09 | disposition home or self-care (01) ==
PROVIDERS: Physician Assistant Medical; Emergency Provider Emergency Medicine; PCP Internal Medicine
DX: O26.891 Other specified pregnancy related conditions, first trimester (principal); R10.2 Pelvic and perineal pain; O34.219 Maternal care for unspecified type scar from previous cesarean delivery; O09.521 Supervision of elderly multigravida, first trimester; Z3A.01 Less than 8 weeks gestation of pregnancy
CPT/HCPCS: 36415; 76801; 76817; 80048; 80076; 81001; 85025; 86900; 86901; 99284

== ENCOUNTER 2020-12-15 16:21 | Outpatient (REF) | payer OTHER, SELFPAY ==
[2020-12-15 18:25] LABS: HCG Quantitative 1371 mIU/mL
== END 2020-12-15 16:22 | disposition home or self-care (01) ==
LOC: HO.LAB 16:21
PROVIDERS: PCP Internal Medicine; Visit Provider Obstetrics & Gynecology
DX: Z34.90 Encounter for supervision of normal pregnancy, unspecified, unspecified trimester (principal)
CPT/HCPCS: 36415; 84702

== ENCOUNTER → 2020-12-16 13:00 | Outpatient (BNVA) | payer OTHER, SELFPAY | PROVIDERS: Visit Provider Obstetrics & Gynecology | DX: Z32.00 Encounter for pregnancy test, result unknown (principal) | CPT/HCPCS: 99212 ==

== ENCOUNTER 2020-12-16 13:32 | Outpatient (REF) | payer OTHER, SELFPAY ==
--- NOTE | ~2020-12-16 | US_ITS ---
EXAMINATION: US OB, FIRST TRIMESTER CLINICAL INFORMATION: Suspicion of ectopic . COMPARISON: Previous pelvic ultrasound 12/13/2020 TECHNIQUE: Transabdominal and transvaginal pelvic ultrasound was performed. Transvaginal exam was performed for better visualization of the uterus and left ovary. FINDINGS: The uterus is normal in size and shape. The endometrium is slightly thickened measuring 1.6 cm. No intrauterine is seen. No focal uterine lesion is seen. The right ovary has been removed. The left ovary measures 3.7 x 2.3 x 3 cm. There is a 2 x 1.5 x 1.8 cm simple left ovarian cyst. There is a complex cystic structure with thick echogenic wall in the left adnexa adjacent to the left ovary. This contains a pole with heart activity and yolk sac and is consistent with a left adnexal ectopic . This measures 2.2 x 1.5 x 1 cm and is increased in size compared to previous exam when this measured approximately 1 cm. There is no fluid in the pelvis. US/US OB transvaginal IMPRESSION: Left adnexal ectopic . Findings were communicated to the OB office by the pet technologist at the completion of the exam and the patient was sent to the OB office. Findings were communicated to Dr. Willis by the pet technologist by telephone on 12/16/2020 at 2:45 PM.
--- NOTE | ~2020-12-16 | US_ITS ---
EXAMINATION: US OBSTETRICAL ULTRASOUND CLINICAL INFORMATION: Suspected ectopic . COMPARISON: Ultrasound of the pelvis and transvaginal 12/13/2020. LMP: 11/02/2020. Gestational age by maternal dates is 6 weeks and 2 days. Estimated date of delivery by maternal dates is 08/09/2021. TECHNIQUE: Transabdominal pelvic ultrasound was performed. FINDINGS: There is no intrauterine gestational sac. The uterus is enlarged with thickened endometrium measuring 1.6 cm. Within the left adnexa is a gestational sac measuring 2.22 x 1.52 x 1.3 cm corresponding to 5 weeks and 6 days and TAURUS of 08/12/2021. The heart is visualized. [place]-rump length measures 0.19 cm. There is visualization of yolk sac. The adjacent left ovary measures 4.7 x 1.9 x 3.7 cm. There is anechoic corpus luteal cyst measuring 1.7 x 1.6 x 1.9 cm. The right ovary has been removed. There is no free fluid in the cul-de-sac. US/US OB <= 14 weeks fetus IMPRESSION: Live ectopic visualized in the left adnexa adjacent to left ovary. The right ovary is not seen.
== END 2020-12-16 13:33 | disposition home or self-care (01) ==
LOC: HO.US 13:32
PROVIDERS: Absent Provider Obstetrics & Gynecology; PCP Internal Medicine; Visit Provider Obstetrics & Gynecology
DX: O09.511 Supervision of elderly primigravida, first trimester (principal); O00.202 Left ovarian pregnancy without intrauterine pregnancy; Z90.721 Acquired absence of ovaries, unilateral; Z3A.01 Less than 8 weeks gestation of pregnancy
CPT/HCPCS: 76801; 76817

== ENCOUNTER 2020-12-16 15:47 | Emergency (ER) | payer OTHER, SELFPAY ==
[2020-12-16 15:51] VITALS: BP 131/78; PULSE 86; RESP 16; TEMP 36.7; O2SAT 99; BMI 43.5
--- NOTE | 2020-12-16 16:03 | ED.MEDCLEAR ---
HPI - Medical Clearance General Chief complaint: Medical Clearance Stated complaint: ectopic Time Seen by Provider: 12/16/20 16:03 Source: patient Mode of arrival: ambulatory Limitations: no limitations History of Present Illness HPI Narrative: 35 yo female sent down by OB for labs and methotrexate injection which they were unable to in outpatient setting, she has the orders with her and consent form, has no complaints at this time, aware of risks and wants to proceed complaint: other (methotrexate injection) Onset (ago): minute(s) Reason for Medical Clearance: other (ectopic ) Place: home Alleged Intoxication: No Compliant with Home Medications: Yes Traumatic Symptoms: denies traumatic injury Associated Symptoms: denies other symptoms Treatments Prior to Arrival: other (in OB office prior to ED visit for injection) Related Information Previous Rx's Medication Instructions Recorded albuterol sulfate 2 puff INHALATION Q4-6H PRN #6.7 g 09/19/20 Allergies Allergy/AdvReac Type Severity Reaction Status Date / Time No Known Allergies Allergy Verified 12/16/20 13:07 [No Known Allergies*] Review of Systems Review of Systems: Constitutional : No Weight loss, No Fever, No Chills ENT/Mouth : No sore throat, No Rhinorrhea Eyes: No Eye Pain, No Swelling, No Redness Cardiovascular : No Chest Pain, No SOB Respiratory : No Cough, No Sputum, No Wheezing Gastrointestinal : No Nausea, No Vomiting, No Diarrhea Genitourinary : No Dysuria, No Urinary Frequency, No Hematuria, Musculoskeletal : No joint pain, No Myalgias, No Joint Swelling Skin : No Skin Lesions, No rash All other systems reviewed and are negative PMFSH Past Medical History Attestation statement: The following information was validated with the patient. Medical History Anxiety Asthma section wound complication Cholecystectomy planned Encounter for cholecystectomy Gall bladder stones Obesity Surgical History Hx of removal of ovary Family History Family History (Updated 12/11/20 @ 13:35 by Kyle Dsouza CMA) Maternal Grandmother Cancer Father Heart attack Social History Social History Alcohol intake: never Patient Tobacco Use Status: Current someday Tobacco user Cigarettes Per Day: 2 Advance Directives: No Advance Directives Information Provided: No Patient : Yes Gender identity: female Physical Exam Vital Signs: Vital Signs: Last Vital Signs Temp 98.1 F 12/16/20 15:51 Pulse 86 12/16/20 15:51 Resp 16 12/16/20 15:51 BP 131/78 12/16/20 15:51 Pulse Ox 99 12/16/20 15:51 Body Mass Index 43.5 Appearance: Alert. Oriented X3. No acute distress. appropriately anxious Eyes: Pupils equal, round and reactive to light. ENT: Pharynx normal. Neck: Normal inspection. Neck supple. CVS: Normal heart rate and rhythm. Respiratory: No respiratory distress. Abdomen: Soft and non-tender. Skin: Skin warm and dry. Normal skin color. Normal skin turgor. Extremities: No lower extremity edema. No calf ttp Neuro: Oriented X 3. No motor deficit. No sensory deficit. MDM - Medical Clearance MDM Narrative Medical decision making narrative: 35 yo female here for methotrexate injection has no complaints at this time she is in the ED for labs and injection, already consented, aware of risks, wants to proceed Discharge Plan Discharge Clinical Impression: Ectopic Patient Disposition: Home, Self-Care Instructions: Ectopic (DC), Methotrexate (By injection) Additional Instructions: return to ED for any worsening symptoms or concerns please follow up with OB as scheduled. Prescriptions: No Action albuterol sulfate 90 mcg/actuation HFA aerosol inhaler 2 puff inhalation Q4-6H PRN (Reason: shortness of breath or wheezing) Qty: 6.7 RF: 0 Stand Alone Forms: Work/School Release
[2020-12-16 16:33] LABS: MANUAL DIFF FLAG NO
[2020-12-16 16:36] LABS: Basophils Percent Auto 0.3 % (0-2); Eosinophils Absolute Auto 0.3 X10*3/uL (0.0-0.4); Eosinophils Percent Auto 3.8 % (0-4); Hematocrit 40.2 % (37-47); Hemoglobin 12.4 g/dl (12.0-16.0); Imm Gran Abs Auto 0.03 X10*3/uL (0.00-0.03); Imm Gran Pct Auto 0.3 % (0.0-0.4); Lymphocytes Absolute Auto 2.1 X10*3/uL (1.2-4.9); Lymphocytes Percent Auto 23.9 % (20-40); Mean Corpuscular HGB Conc 30.8 g/dl (31.0-35.0); Mean Corpuscular Hemoglobin 24.5 pg (27.0-33.0); Mean Corpuscular Volume 79.3 fL (80-98); Mean Platelet Volume 11.2 fL (9.4-12.3); Monocytes Absolute Auto 0.6 X10*3/uL (0.1-1.2); Monocytes Percent Auto 7.3 % (2-11); Neutrophils Absolute Auto 5.6 X10*3/uL (2.0-8.3); Neutrophils Percent Auto 64.4 % (45-73); Platelet Count 248 X10*3/uL (160-400); Red Blood Count 5.07 X10*6/uL (4.20-5.50); Red Cell Distribution Width 15.9 % (11.0-16.0); White Blood Count 8.7 X10*3/uL (4.8-10.8)
[2020-12-16 16:44] LABS: INTERNATIONAL NORM RATIO 1.1 (0.9-1.1); Prothrombin Time 13.5 SEC (10.8-13.0)
[2020-12-16 16:47] LABS: Partial Thromboplastin Time 30.7 SEC (24.1-38.0)
[2020-12-16 17:05] LABS: Alanine Aminotransferase 58 U/L (0-31); Albumin Level 4.5 g/dL (3.5-5.0); Alkaline Phosphatase 84 U/L (39-117); Aspartate Amino Transferase 35 U/L (5-31); Bilirubin Direct 0.2 mg/dL (0.0-0.5); Bilirubin Total 0.4 mg/dL (0.0-1.0); Blood Urea Nitrogen 14 mg/dL (9-16); Calcium 9.6 mg/dL (8.4-10.2); Creatinine Clr Calc Pharmacy 150.5; Estimated Glomerular Filt Rate > 60; Glucose Random 110 mg/dL (60-115); Total Protein 7.1 g/dL (6.5-8.0)
[2020-12-16 17:07] LABS: HCG Quantitative 1475 mIU/mL
[2020-12-16 17:17] LABS: Anion Gap 13 (12-20); Carbon Dioxide 23 mmol/L (22-29); Chloride 105 mmol/L (96-108); Potassium 4.4 mmol/L (3.3-5.1); Sodium 137 mmol/L (135-145)
[2020-12-16] MEDS: metHOTREXate sodium 125 MG/5 ML SYRINGE 120.5 MG IM (18:03)
== END 2020-12-16 19:16 | disposition home or self-care (01) ==
PROVIDERS: Emergency Provider Emergency Medicine; PCP Internal Medicine
DX: O00.90 Unspecified ectopic pregnancy without intrauterine pregnancy (principal); J45.909 Unspecified asthma, uncomplicated; Z79.899 Other long term (current) drug therapy
CPT/HCPCS: 36415; 80048; 80076; 84702; 85025; 85610; 85730; 96372; 99283; 99284; J9250

== ENCOUNTER 2020-12-19 14:46 | Outpatient (REF) | payer OTHER, SELFPAY ==
[2020-12-19 15:40] LABS: HCG Quantitative 1244 mIU/mL
== END 2020-12-19 14:47 | disposition home or self-care (01) ==
LOC: HO.LAB 14:46
PROVIDERS: PCP Internal Medicine; Visit Provider Obstetrics & Gynecology
DX: O00.90 Unspecified ectopic pregnancy without intrauterine pregnancy (principal)
CPT/HCPCS: 36415; 84702; Q3014

== ENCOUNTER 2020-12-22 15:56 | Outpatient (REF) | payer OTHER, SELFPAY ==
[2020-12-22 16:22] LABS: MANUAL DIFF FLAG NO
[2020-12-22 16:27] LABS: Basophils Percent Auto 0.2 % (0-2); Eosinophils Absolute Auto 0.3 X10*3/uL (0.0-0.4); Eosinophils Percent Auto 4.9 % (0-4); Hematocrit 36.8 % (37-47); Hemoglobin 11.4 g/dl (12.0-16.0); Imm Gran Abs Auto 0.03 X10*3/uL (0.00-0.03); Imm Gran Pct Auto 0.5 % (0.0-0.4); Lymphocytes Absolute Auto 1.4 X10*3/uL (1.2-4.9); Lymphocytes Percent Auto 22.6 % (20-40); Mean Corpuscular Hemoglobin 24.5 pg (27.0-33.0); Mean Corpuscular Volume 79.1 fL (80-98); Mean Platelet Volume 11.3 fL (9.4-12.3); Monocytes Absolute Auto 0.4 X10*3/uL (0.1-1.2); Monocytes Percent Auto 5.7 % (2-11); Neutrophils Absolute Auto 4.2 X10*3/uL (2.0-8.3); Neutrophils Percent Auto 66.1 % (45-73); Platelet Count 218 X10*3/uL (160-400); Red Blood Count 4.65 X10*6/uL (4.20-5.50); Red Cell Distribution Width 16.2 % (11.0-16.0); White Blood Count 6.3 X10*3/uL (4.8-10.8)
[2020-12-22 16:48] LABS: Alanine Aminotransferase 24 U/L (0-31); Aspartate Amino Transferase 17 U/L (5-31)
[2020-12-22 16:55] LABS: HCG Quantitative 305 mIU/mL
== END 2020-12-22 15:57 | disposition home or self-care (01) ==
LOC: HO.LAB 15:56
PROVIDERS: PCP Internal Medicine; Visit Provider Obstetrics & Gynecology
DX: O00.90 Unspecified ectopic pregnancy without intrauterine pregnancy (principal)
CPT/HCPCS: 36415; 84450; 84460; 84702; 85025

== ENCOUNTER → 2020-12-23 15:51 | Outpatient (BNVA) | payer OTHER, SELFPAY | PROVIDERS: PCP Internal Medicine; Visit Provider Obstetrics & Gynecology ==

== ENCOUNTER → 2020-12-24 14:38 | Outpatient (BNVA) | payer OTHER, SELFPAY | PROVIDERS: Visit Provider Obstetrics & Gynecology ==

== ENCOUNTER 2021-01-01 13:57 | Outpatient (REF) | payer OTHER, SELFPAY ==
[2021-01-01 15:05] LABS: HCG Quantitative 10 mIU/mL
== END 2021-01-01 13:58 | disposition home or self-care (01) ==
LOC: HO.LAB 13:57
PROVIDERS: PCP Internal Medicine; Visit Provider Obstetrics & Gynecology
DX: O00.90 Unspecified ectopic pregnancy without intrauterine pregnancy (principal)
CPT/HCPCS: 36415; 84702

== ENCOUNTER 2022-01-02 12:10 | Emergency (ER) | payer OTHER, SELFPAY ==
--- NOTE | ~2022-01-02 | XR_ITS ---
EXAMINATION: XR CHEST CLINICAL INFORMATION: Cough COMPARISON: 09/19/2020 TECHNIQUE: 2 views of the chest were obtained. FINDINGS: No acute findings compared to 09/19/2020. Lungs are well expanded and clear. No consolidation or pleural effusion. There is an equivocal finding of mild chronic thickening of bronchial gilliam in the perihilar regions. Cardiomediastinal silhouette has normal size and contour. The visualized bones and upper abdomen are unremarkable. XR/XR chest 2V IMPRESSION: No evidence of pneumonia. No acute cardiopulmonary abnormality compared to 09/19/2020.
[2022-01-02 12:16] VITALS: BP 123/68; PULSE 94; RESP 18; TEMP 36.8; O2SAT 97; BMI 38.7
[2022-01-02 12:47] LABS: COVID-19 Test Negative (Negative); IDNOW Serial# 16C4AD1C
[2022-01-02 12:49] LABS: Strep A Nucleic Acid Negative (Negative)
--- NOTE | 2022-01-02 16:06 | ED.GENADULT ---
HPI - General Adult General Chief complaint: General Medical Stated complaint: sore throat, infection Time Seen by Provider: 01/02/22 13:52 History of Present Illness HPI narrative: Patient complains of cough possible fever, runny nose, congestion, sputum, intermittent use of her inhaler over past several days with relief of wheezing, mild sore throat Related Data Previous Rx's Medication Instructions Recorded albuterol sulfate 90 mcg/actuation 2 puff inhalation Q6H PRN 03/04/21 aerosol inhaler (Proventil HFA) shortness of breath or wheezing 30 days #6.7 grams escitalopram oxalate 10 mg tablet 10 mg PO BEDTIME 90 days #90 tabs 03/04/21 meloxicam 15 mg tablet 15 mg PO DAILY 90 days #90 tabs 09/19/21 acetaminophen 500 mg tablet 1,000 mg PO QID PRN pain/fever #30 01/02/22 tabs albuterol sulfate 90 mcg/actuation 2 puff inhalation Q4-6H PRN 01/02/22 aerosol inhaler shortness of breath or wheezing #6.7 grams amoxicillin 875 mg-potassium 1 tab PO BID 7 days #14 tabs 01/02/22 clavulanate 125 mg tablet prednisone 20 mg tablet 60 mg PO DAILY 3 days #9 tabs 01/02/22 Allergies Allergy/AdvReac Type Severity Reaction Status Date / Time No Known Allergies Allergy Verified 03/04/21 16:14 [No Known Allergies*] Review of Systems Review of Systems: Positive for cough runny nose sore throat and intermittent wheezing Negatives are no chills no dizziness no weakness no headache no fainting of feeling faint no difficulty breathing or swallowing no chest pain no shortness of breath at this time no palpitations no abdominal pain no nausea vomiting or diarrhea no skin rash no joint swelling no calf pain or swelling no leg swelling Yes all other systems are reviewed and are negative PMFSH Past Medical History Source: nursing notes reviewed Medical History (Updated 01/02/22 @ 16:09 by DOMINIQUE Villarreal) Anxiety Asthma Bloody stools section wound complication Cholecystectomy planned Encounter for cholecystectomy Gall bladder stones Left sided sciatica Moderate recurrent major depression Morbid obesity Obesity Surgical History Hx of removal of ovary Family History Family History Maternal Grandmother Cancer Father Heart attack Family/Other Mental health disorder Substance use disorder Social History Social History Housing: Apartment Alcohol intake: current Alcohol intake frequency: holidays/special occasions only Alcohol type: wine Patient Tobacco Use Status: Current everyday Tobacco user Tobacco use type: Cigarette Cigarettes Per Day: 7 e-Cigarette/Vaping Use: Never Used Second Hand Smoke Exposure: No Advance Directives: No Advance Directives Information Provided: Yes service: No Current occupational status: unemployed Gender identity: Female Physical Exam ED Vital Signs: Vital Signs - 24 hr 01/02/22 12:16 Temperature 98.2 F Pulse Rate 94 Respiratory Rate 18 Blood Pressure 123/68 Pulse Oximetry 97 Oxygen Delivery Method Room Air BMI result Body Mass Index 38.7 General appearance is no acute distress The eyes no redness or discharge The pharynx is normal no redness swelling or exudate mucous membranes moist uvula midline voice normal Neck is supple without lymphadenopathy Chest clear to auscultation bilateral The heart no murmur There is no pleuritic discomfort with a deep breath The abdomen soft nontender Extremities full range of motion x4 without edema , no calf tenderness or swelling Skin no rashes Course Course Course Narrative: Chest x-ray negative, lungs clear on exam at this time, symptoms for a week worsening so patient is prescribed Zithromax for bronchitis and due to increasing frequency of inhaler use is treated for asthma with prednisone Medical Decision Making Lab Data Labs: Lab Results 01/02/22 01/02/22 Range/Units 12:23 12:23 COVID-19 (GUILLAUME) Negative (Negative) COVID-19 Clin Com See Note S. pyogenes GrpA GERONIMO Negative (Negative) Discharge Plan Discharge Clinical Impression: Bronchitis Patient Disposition: Home, Self-Care Additional Instructions: X-ray of chest was normal We are treating for bronchitis with antibiotics Zithromax and treating asthma with prednisone, steroid Follow with her doctor Return any concerns Prescriptions: New amoxicillin-pot clavulanate 875-125 mg tablet 1 tab PO BID 7 Days Qty: 14 0RF prednisone 20 mg tablet 60 mg PO DAILY 3 Days Qty: 9 0RF acetaminophen 500 mg tablet 1,000 mg PO QID PRN (Reason: pain/fever) Qty: 30 0RF albuterol sulfate 90 mcg/actuation HFA aerosol inhaler 2 puff inhalation Q4-6H PRN (Reason: shortness of breath or wheezing) Qty: 6.7 0RF No Action albuterol sulfate [Proventil HFA] 90 mcg/actuation HFA aerosol inhaler 2 puff inhalation Q6H PRN (Reason: shortness of breath or wheezing) 30 Days Qty: 6.7 1RF meloxicam 15 mg tablet 15 mg PO DAILY 90 Days Qty: 90 1RF escitalopram oxalate 10 mg tablet 10 mg PO BEDTIME 90 Days Qty: 90 1RF Interventions: ED Discharge Assessment Last Done: 01/02/22 16:33 Discharge Date/Time: 01/02/22 16:34
[2022-01-02] MEDS: predniSONE 20 MG TABLET 60 MG PO (16:23)
[2022-01-02] MEDS: Amoxicillin/Potassium Clav 875 MG TABLET PO (16:24)
== END 2022-01-02 16:34 | disposition home or self-care (01) ==
PROVIDERS: Emergency Provider Emergency Medicine; PCP Internal Medicine
DX: J40 Bronchitis, not specified as acute or chronic (principal); Z20.822 Contact with and (suspected) exposure to COVID-19; J02.9 Acute pharyngitis, unspecified; F17.200 Nicotine dependence, unspecified, uncomplicated; Z79.899 Other long term (current) drug therapy
CPT/HCPCS: 71046; 87635; 87651; 99283

== ENCOUNTER 2022-01-28 17:50 | Emergency (ER) | payer OTHER, SELFPAY ==
[2022-01-28 18:42] VITALS: BP 118/61; PULSE 94; RESP 16; TEMP 36.3; O2SAT 97; BMI 45.1
[2022-01-28 19:14] LABS: Hematocrit 39.2 % (37.0-47.0); Hemoglobin 12.3 g/dl (12.0-16.0); Mean Corpuscular HGB Conc 31.4 g/dl (31.0-35.0); Mean Corpuscular Hemoglobin 24.7 pg (27.0-33.0); Mean Corpuscular Volume 78.9 fL (80.0-98.0); Mean Platelet Volume 10.7 fL (9.4-12.3); Platelet Count 256 X10*3/uL (160-400); Red Blood Count 4.97 X10*6/uL (4.20-5.50); Red Cell Distribution Width 15.1 % (11.0-16.0); White Blood Count 7.3 X10*3/uL (4.8-10.8)
[2022-01-28 19:17] LABS: Appearance Urine HAZY; Color Urine YELLOW; Glucose Urine UA NEG (NEG); Leukocyte Esterase Urine NEG (NEG); Nitrite Urine NEG (NEG); PH 5.5 (5.0-8.0); Specific Gravity - Urine >= 1.030 (1.005-1.025); Urine Blood 1+ (NEG); Urine Ketones NEG (NEG); Urine Protein NEG (NEG-TRACE)
[2022-01-28 19:18] LABS: UPreg QC Valid YES; Urine Pregnancy NEGATIVE (NEGATIVE)
[2022-01-28 19:23] LABS: Bacteria Urine TRACE /LPF; Mucus Urine 2+ /LPF; Squamous Epithelial Cell Urine 2+ /LPF; WBC Urine 0 /HPF (0-4)
[2022-01-28 19:33] LABS: Alanine Aminotransferase 31 U/L (0-31); Albumin Level 4.4 g/dL (3.5-5.0); Alkaline Phosphatase 79 U/L (39-117); Anion Gap 14 (12-20); Aspartate Amino Transferase 24 U/L (5-31); Bilirubin Total 0.3 mg/dL (0.0-1.0); Blood Urea Nitrogen 17 mg/dL (9-16); Calcium 9.2 mg/dL (8.4-10.2); Carbon Dioxide 25 mmol/L (22-29); Chloride 104 mmol/L (96-108); Creatinine Clr Calc Pharmacy 156.7; Estimated Glomerular Filt Rate > 60; Glucose Random 133 mg/dL (60-115); Sodium 139 mmol/L (135-145); Total Protein 7.3 g/dL (6.5-8.0)
[2022-01-28 19:40] LABS: B Type Natriuretic Peptide 27 pg/mL (<100)
--- NOTE | 2022-01-28 22:53 | ED_ITS ---
HPI - General Adult General Chief complaint: Extremity Problem Stated complaint: swollen feet extended and pain in abd back pain Time Seen by Provider: 01/28/22 22:36 Source: patient Mode of arrival: ambulatory Limitations: no limitations History of Present Illness HPI narrative: Patient comes to the emergency room with multiple complaints. Patient complaining that her lower extremities are swollen which started about 3 days ago, complaining of lower back pain radiating to the left leg for several years, complaining of bilateral hip pain for several months,complaining of abdominal fullness for over a month, complaining that drinking water makes her feel bloated, complaining of bilateral lower quadrant pain for several weeks. Patient denies urinary/ fecal incontinence /retention Related Data Previous Rx's Medication Instructions Recorded albuterol sulfate 90 mcg/actuation 2 puff inhalation Q6H PRN 03/04/21 aerosol inhaler (Proventil HFA) shortness of breath or wheezing 30 days #6.7 grams escitalopram oxalate 10 mg tablet 10 mg PO BEDTIME 90 days #90 tabs 03/04/21 meloxicam 15 mg tablet 15 mg PO DAILY 90 days #90 tabs 09/19/21 acetaminophen 500 mg tablet 1,000 mg PO QID PRN pain/fever #30 01/02/22 tabs albuterol sulfate 90 mcg/actuation 2 puff inhalation Q4-6H PRN 01/02/22 aerosol inhaler shortness of breath or wheezing #6.7 grams amoxicillin 875 mg-potassium 1 tab PO BID 7 days #14 tabs 01/02/22 clavulanate 125 mg tablet prednisone 20 mg tablet 60 mg PO DAILY 3 days #9 tabs 01/02/22 Allergies Allergy/AdvReac Type Severity Reaction Status Date / Time No Known Allergies Allergy Verified 01/28/22 18:48 [No Known Allergies*] Review of Systems Review of Systems: Constitutional : No Weight loss, No Fever, No Chills, No Night Sweats, No Fatigue, No Malaise ENT/Mouth : No Hearing loss, No Ear Pain, No Nasal Congestion, No Sinus Pain, No Hoarseness, No sore throat, No Rhinorrhea, No Swallowing Difficulty Eyes: No Eye Pain, No Swelling, No Redness, No Foreign Body, No Discharge, No Vision Changes Cardiovascular : No Chest Pain, No SOB, No Dyspnea on Exertion, No Orthopnea, No Edema, No Palpitations Respiratory : No Cough, No Sputum, No Wheezing, No Smoke Exposure, No Dyspnea Gastrointestinal : No Nausea, No Vomiting, No Diarrhea, complaining abdominal fullness, distention, bilateral lower quadrant pain all for several weeks Genitourinary : no irregular bleeding, No Dysuria, No Urinary Frequency, No Hematuria, No Urinary Incontinence, No Urgency, No Flank Pain, No Urinary Flow Changes, No Hesitancy Musculoskeletal : No joint pain, No Myalgias, No Joint Swelling, complaining of back pain radiating towards the left leg for years, complaining of lower extremity edema Skin : No Skin Lesions, No rash Neuro : No Weakness, No Numbness, No Paresthesias, No Loss of Consciousness, No Dizziness, No Headache Psych : No Anxiety/Panic, No Depression, No SI/HI/AH/VH, No Social Issues, Heme/Lymph: No Bruising, No Bleeding,No Lymphadenopathy Endocrine : No Polyuria, No Polydipsia, No Temperature Intolerance PMFSH Past Medical History Medical History Anxiety Asthma Bloody stools section wound complication Cholecystectomy planned Encounter for cholecystectomy Gall bladder stones Left sided sciatica Moderate recurrent major depression Morbid obesity Obesity Surgical History Hx of removal of ovary Family History Family History Maternal Grandmother Cancer Father Heart attack Family/Other Mental health disorder Substance use disorder Social History Social History Housing: Apartment Alcohol intake: current Alcohol intake frequency: holidays/special occasions only Alcohol type: wine Patient Tobacco Use Status: Current everyday Tobacco user Tobacco use type: Cigarette Cigarettes Per Day: 7 e-Cigarette/Vaping Use: Never Used Second Hand Smoke Exposure: No Advance Directives: No Advance Directives Information Provided: No service: No Current occupational status: unemployed Gender identity: Female Physical Exam ED Vital Signs: Vital Signs - 24 hr 01/28/22 18:42 Temperature 97.4 F Pulse Rate 94 Respiratory Rate 16 Blood Pressure 118/61 Pulse Oximetry 97 Oxygen Delivery Method Room Air BMI result Body Mass Index 45.1 Const Other: Appearance: Alert. Oriented X3. well-appearing Eyes: Pupils equal, round and reactive to light. ENT: Pharynx normal. Neck: Normal inspection. Neck supple. No lymph nodes noted. No crepitus CVS: Normal heart rate and rhythm. Pulses normal. Normal S1 and S2 Respiratory: No respiratory distress. Breath sounds normal. No Wheezing. No rales Abdomen: Soft and nontender. No rigidity. [id number] No distention. no guarding, no rebound, no pain to palpation in lower quadrants Skin: Skin warm and dry. Normal skin color. Normal skin turgor. Extremities: No lower extremity pitting edema, lower extremity physical exam consistent with patient's body habitus. No Lacerations. No Rash Neuro: Oriented X 3. No motor deficit. No sensory deficit. Moving all extremities. No slurred speech. CN 2 through 12 grossly intact Psych: calm, argumentative, anxious Course Course Course Narrative: I discussed the labs with the patient, White blood cell count within normal limits, hemoglobin/ hematocrit stable, chemistry does not show any acute abnormalities, glucose 133, LFTs within normal limits, BNP 27 negative, urinalysis negative for UTI, negative for test. Patient very upset at her labs were not show any acute abnormality or anything that would explain her chronic symptoms. CT scan pending. Patient complaining about her chronic back pain, Worsening bilateral hip pain. I discussed with the patient that weight loss may help alleviate her hip and back chronic pain. Patient got very upset. Patient also mentioned that she has been told so by her primary care physician in the past. I was informed by the patient's nurse that the patient was having an argument with someone over the phone, patient eloped before the CT scan was done. Medical Decision Making Lab Data Result diagrams: 01/28/22 19:06 01/28/22 19:06 Labs: Lab Results 01/28/22 01/28/22 01/28/22 Range/Units 19:06 19:06 19:06 WBC 7.3 (4.8-10.8) X10*3/uL RBC 4.97 (4.20-5.50) X10*6/uL Hgb 12.3 (12.0-16.0) g/dl Hct 39.2 (37.0-47.0) % MCV 78.9 L (80.0-98.0) fL MCH 24.7 L (27.0-33.0) pg MCHC 31.4 (31.0-35.0) g/dl RDW 15.1 (11.0-16.0) % Plt Count 256 (160-400) X10*3/uL MPV 10.7 (9.4-12.3) fL Absolute Nucleated RBC 0.000 (0.0-0.012) X10*3/uL Nucleated RBC % (auto) 0.0 (0.0-0.2) /100WBC Sodium 139 (135-145) mmol/L Potassium 4.0 (3.3-5.1) mmol/L Chloride 104 (96-108) mmol/L Carbon Dioxide 25 (22-29) mmol/L Anion Gap 14 (12-20) BUN 17 H (9-16) mg/dL Creatinine 0.67 (0.5-1.4) mg/dL Estim Creat Clear Calc 156.7 Estimated GFR > 60 Random Glucose 133 H (60-115) mg/dL Calcium 9.2 (8.4-10.2) mg/dL Total Bilirubin 0.3 (0.0-1.0) mg/dL AST 24 D (5-31) U/L ALT 31 (0-31) U/L Alkaline Phosphatase 79 (39-117) U/L B-Natriuretic Peptide 27 (<100) pg/mL Total Protein 7.3 (6.5-8.0) g/dL Albumin 4.4 (3.5-5.0) g/dL Urine Color Urine Appearance Urine pH (5.0-8.0) Ur Specific [place] (1.005-1.025) Urine Protein (NEG-TRACE) MG/DL Urine Glucose (UA) (NEG) MG/DL Urine Ketones (NEG) MG/DL Urine Blood (NEG) Urine Nitrite (NEG) Ur Leukocyte Esterase (NEG) Urine RBC (0) /HPF Urine WBC (0-4) /HPF Ur Squamous Epith Cells /LPF Urine Bacteria /LPF Urine Mucus /LPF Urine Test (NEGATIVE) 01/28/22 01/28/22 Range/Units 19:06 19:06 WBC (4.8-10.8) X10*3/uL RBC (4.20-5.50) X10*6/uL Hgb (12.0-16.0) g/dl Hct (37.0-47.0) % MCV (80.0-98.0) fL MCH (27.0-33.0) pg MCHC (31.0-35.0) g/dl RDW (11.0-16.0) % Plt Count (160-400) X10*3/uL MPV (9.4-12.3) fL Absolute Nucleated RBC (0.0-0.012) X10*3/uL Nucleated RBC % (auto) (0.0-0.2) /100WBC Sodium (135-145) mmol/L Potassium (3.3-5.1) mmol/L Chloride (96-108) mmol/L Carbon Dioxide (22-29) mmol/L Anion Gap (12-20) BUN (9-16) mg/dL Creatinine (0.5-1.4) mg/dL Estim Creat Clear Calc Estimated GFR Random Glucose (60-115) mg/dL Calcium (8.4-10.2) mg/dL Total Bilirubin (0.0-1.0) mg/dL AST (5-31) U/L ALT (0-31) U/L Alkaline Phosphatase (39-117) U/L B-Natriuretic Peptide (<100) pg/mL Total Protein (6.5-8.0) g/dL Albumin (3.5-5.0) g/dL Urine Color YELLOW Urine Appearance HAZY Urine pH 5.5 (5.0-8.0) Ur Specific [place] >= 1.030 H (1.005-1.025) Urine Protein NEG (NEG-TRACE) MG/DL Urine Glucose (UA) NEG (NEG) MG/DL Urine Ketones NEG (NEG) MG/DL Urine Blood 1+ H (NEG) Urine Nitrite NEG (NEG) Ur Leukocyte Esterase NEG (NEG) Urine RBC 5-9 H (0) /HPF Urine WBC 0 (0-4) /HPF Ur Squamous Epith Cells 2+ /LPF Urine Bacteria TRACE /LPF Urine Mucus 2+ /LPF Urine Test NEGATIVE (NEGATIVE) Discharge Plan Discharge Clinical Impression: Chronic abdominal pain, Chronic sciatica, Abdominal bloating Patient Disposition: Elopement Prescriptions: No Action albuterol sulfate [Proventil HFA] 90 mcg/actuation HFA aerosol inhaler 2 puff inhalation Q6H PRN (Reason: shortness of breath or wheezing) 30 Days Qty: 6.7 1RF meloxicam 15 mg tablet 15 mg PO DAILY 90 Days Qty: 90 1RF amoxicillin-pot clavulanate 875-125 mg tablet 1 tab PO BID 7 Days Qty: 14 0RF prednisone 20 mg tablet 60 mg PO DAILY 3 Days Qty: 9 0RF acetaminophen 500 mg tablet 1,000 mg PO QID PRN (Reason: pain/fever) Qty: 30 0RF albuterol sulfate 90 mcg/actuation HFA aerosol inhaler 2 puff inhalation Q4-6H PRN (Reason: shortness of breath or wheezing) Qty: 6.7 0RF escitalopram oxalate 10 mg tablet 10 mg PO BEDTIME 90 Days Qty: 90 1RF Interventions: ED Discharge Assessment Last Done: 01/29/22 00:06 Discharge Date/Time: 01/29/22 00:07
== END 2022-01-29 00:07 | disposition left against medical advice (07) ==
PROVIDERS: Emergency Provider Emergency Medicine; PCP Internal Medicine
DX: G89.29 Other chronic pain (principal); R10.9 Unspecified abdominal pain; M54.32 Sciatica, left side; R14.0 Abdominal distension (gaseous); M25.552 Pain in left hip; M25.551 Pain in right hip; E66.01 Morbid (severe) obesity due to excess calories; Z68.42 Body mass index [BMI] 45.0-49.9, adult; F17.210 Nicotine dependence, cigarettes, uncomplicated
CPT/HCPCS: 36415; 80053; 81001; 81025; 83880; 85027; 99282; 99283

== ENCOUNTER → 2022-09-30 15:06 | Outpatient (BNVA) | payer OTHER, SELFPAY | PROVIDERS: PCP Internal Medicine; Referring Provider Internal Medicine; Visit Provider Surgery | DX: K64.9 Unspecified hemorrhoids (principal) | CPT/HCPCS: 46600; 99202 ==

== ENCOUNTER 2022-10-25 14:27 | Outpatient (REF) | payer OTHER, SELFPAY ==
--- NOTE | ~2022-10-25 | XR_ITS ---
EXAMINATION: XR HIP, LEFT CLINICAL INFORMATION: Primary osteoarthritis COMPARISON: None available. TECHNIQUE: Two views of the left hip. FINDINGS: Bones and soft tissues are normal. No fracture. Alignment is anatomic. Hip joint space is maintained. XR/XR hip LT min 2V IMPRESSION: Normal left hip.
[2022-10-25 15:50] LABS: MANUAL DIFF FLAG NO
[2022-10-25 16:36] LABS: Basophils Percent Auto 0.4 % (0-2); Eosinophils Absolute Auto 0.3 X10*3/uL (0.0-0.4); Eosinophils Percent Auto 4.3 % (0-4); Hematocrit 42.2 % (37.0-47.0); Hemoglobin 12.9 g/dl (12.0-16.0); Imm Gran Abs Auto 0.08 X10*3/uL (0.00-0.03); Imm Gran Pct Auto 1.1 % (0.0-0.4); Lymphocytes Absolute Auto 1.6 X10*3/uL (1.2-4.9); Lymphocytes Percent Auto 21.6 % (20-40); Mean Corpuscular HGB Conc 30.6 g/dl (31.0-35.0); Mean Corpuscular Hemoglobin 24.3 pg (27.0-33.0); Mean Corpuscular Volume 79.6 fL (80.0-98.0); Mean Platelet Volume 11.4 fL (9.4-12.3); Monocytes Absolute Auto 0.4 X10*3/uL (0.1-1.2); Neutrophils Absolute Auto 4.8 x10*3/uL (2.0-8.3); Neutrophils Percent Auto 66.6 % (45-73); Platelet Count 279 X10*3/uL (160-400); White Blood Count 7.2 X10*3/uL (4.8-10.8)
[2022-10-25 17:05] LABS: Alanine Aminotransferase 22 U/L (0-31); Albumin Level 4.3 g/dL (3.5-5.0); Alkaline Phosphatase 79 U/L (39-117); Anion Gap 8 (12-20); Aspartate Amino Transferase 16 U/L (5-31); Bilirubin Total 0.3 mg/dL (0.0-1.0); Blood Urea Nitrogen 13 mg/dL (9-16); Calcium 9.7 mg/dL (8.4-10.2); Carbon Dioxide 29 mmol/L (22-29); Chloride 105 mmol/L (96-108); Cholesterol 185 mg/dL; Estimated Glomerular Filt Rate > 60; Glucose Fasting 109 mg/dL (60-99); HDL Cholesterol 32 mg/dL; LDL Cholesterol Calculated 118 mg/dl; Potassium 4.3 mmol/L (3.3-5.1); Sodium 138 mmol/L (135-145); Total Protein 6.9 g/dL (6.5-8.0); Triglycerides 175 mg/dL
[2022-10-25 17:21] LABS: Thyroid Stimulating Hormone 2.66 uIU/mL (0.32-4.0)
== END 2022-10-25 14:28 | disposition home or self-care (01) ==
LOC: HO.XRAY 14:27
PROVIDERS: PCP Internal Medicine; Visit Provider Anesthesiology
DX: E66.01 Morbid (severe) obesity due to excess calories (principal); M16.12 Unilateral primary osteoarthritis, left hip; M54.32 Sciatica, left side; M46.1 Sacroiliitis, not elsewhere classified; M53.3 Sacrococcygeal disorders, not elsewhere classified
CPT/HCPCS: 36415; 73502; 80053; 80061; 84443; 85025; 99202

== ENCOUNTER → 2022-11-24 15:47 | Outpatient (BNVA) | payer OTHER, SELFPAY | PROVIDERS: PCP Nurse Practitioner Family; Visit Provider Anesthesiology | DX: M46.1 Sacroiliitis, not elsewhere classified (principal); M53.3 Sacrococcygeal disorders, not elsewhere classified; M06.9 Rheumatoid arthritis, unspecified | CPT/HCPCS: Q3014 ==

== ENCOUNTER 2022-12-21 07:03 | Outpatient (REF) | payer OTHER, SELFPAY ==
--- NOTE | ~2022-12-21 | FL_ITS ---
EXAMINATION: XR FLUOROSCOPY WITH IMAGES CLINICAL INFORMATION: Sacroiliitis, not elsewhere classified. COMPARISON: None available. TECHNIQUE: Fluoroscopy Supervised By: Dr. Ragland. Fluoroscopy Time: 0.2 minutes. Cumulative Dose: 14.78 mGy. DAP: 4.00 Gycm2. Images: 2. FINDINGS: Images demonstrate needle placement and contrast injection of the bilateral sacroiliac joints FL/FL guidance in treatment room IMPRESSION: Fluoroscopy guidance for sacroiliac joint injection
== END 2022-12-21 07:04 | disposition home or self-care (01) ==
LOC: CF 07:03
PROVIDERS: PCP Nurse Practitioner Family; Visit Provider Anesthesiology
DX: M46.1 Sacroiliitis, not elsewhere classified (principal); M53.3 Sacrococcygeal disorders, not elsewhere classified; M06.9 Rheumatoid arthritis, unspecified
CPT/HCPCS: 27096; J2795

== ENCOUNTER → 2022-12-23 10:56 | Outpatient (BNVA) | payer OTHER, SELFPAY | PROVIDERS: PCP Nurse Practitioner Family; Visit Provider Anesthesiology | DX: M06.9 Rheumatoid arthritis, unspecified (principal); M54.42 Lumbago with sciatica, left side; M53.3 Sacrococcygeal disorders, not elsewhere classified; M46.1 Sacroiliitis, not elsewhere classified; E66.01 Morbid (severe) obesity due to excess calories; Z68.41 Body mass index [BMI] 40.0-44.9, adult | CPT/HCPCS: 99212 ==

== ENCOUNTER 2023-02-15 06:07 | Outpatient (REF) | payer OTHER, SELFPAY | END 2023-02-15 06:08 | disposition home or self-care (01) | LOC: CF 06:07 | PROVIDERS: Visit Provider Anesthesiology | DX: Z13.89 Encounter for screening for other disorder (principal) ==

== ENCOUNTER 2023-02-21 13:45 | Outpatient (AMB) | payer OTHER, SELFPAY ==
--- NOTE | 2023-02-21 13:51 | A.OFFVIS_ITS ---
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 Patient Intake Note: Full STD check Jinriksha Driver Required: No Information Interpreted: non-clinical & clinical Client Support Coordinator: Client Support Coordinator Present (Aidyn) Allergies No Known Allergies [No Known Allergies*] Allergy (Verified 02/21/23 13:56) Medication List - Last Reconciled 02/21/23 by Marylu Maldonado CNM albuterol sulfate 90 mcg/actuation 2 puffs inhalation Q4-6H PRN bupropion HCl 150 mg PO QAM 90 days buspirone 7.5 mg PO BID 30 days cetirizine (Zyrtec) 10 mg PO DAILY fluticasone propionate 50 mcg/actuation (Flonase Allergy Relief) 1 spray intranasal DAILY lidocaine 5% 1 patch topical DAILY PRN 30 days tizanidine 4 mg PO Q8H PRN 30 days tramadol 50 mg PO DAILY PRN 30 days triamcinolone acetonide 0.1% 1 appl topical BID 14 days Ventolin HFA 90 mcg/actuation (albuterol sulfate) 2 puffs inhalation Q6H PRN 30 days NS zolpidem 5 mg PO BEDTIME PRN 30 days Is last menstrual period known: Yes Last menstrual period: 02/05/23 Post menopausal: No 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 She has a history of an ectopic she has a history of 1 child many years ago delivered by . And she also has a history of an ovarian cyst for which her ovary was taken out because the cyst was 12 cm.. She has always had issues with weight she was just told she was prediabetic by her primary doctor and she has started on a diet and she is eating only lean protein and cut out rice and pasta and bread and she is cooking things in an air Fryer and trying to eat healthy and has left soda and cookies and candy behind. She has lost about 50 lb. She wants to know if she could have some hormone test because she is worried about could she get in the future she does want to have 1 more child but not right now her ex partner told her that he had an infection and showed her the prescription which was for doxy Cyclen. But she does not know for sure what he had so she wants to get tested. [facility] Medical History Anxiety Asthma Bleeding hemorrhoids Bloody stools section wound complication Cholecystectomy planned Encounter for cholecystectomy Gall bladder stones Left sided sciatica Moderate recurrent major depression Morbid obesity Obesity Surgical History History of cholecystectomy Hx of removal of ovary Family History Maternal Grandmother Esophageal cancer Father Heart attack Family/Other Mental health disorder Substance use disorder Family/Other No problems noted. Social History Housing: Apartment Alcohol intake: current Alcohol intake frequency: holidays/special occasions only Alcohol type: wine Patient Tobacco Use Status: Current everyday Tobacco user Tobacco use type: Cigarette Cigarettes Per Day: 5 e-Cigarette/Vaping Use: Never Used Second Hand Smoke Exposure: No service: No Current occupational status: unemployed Gender identity: Female Cognitive needs: No Hearing needs: No Vision needs: Yes Female Reproductive History Menstrual Age of Menarche: 10 Duration of menses: 6-7 days Date of last menstrual period: 02/05/23 control method: none Total pregnancies: 2 Full term: 1 Number of Living Children: 1 Ectopics: 1 Physical Exam Vital Signs: Last Vital Signs BP 118/72 02/21/23 13:54 BMI result Body Mass Index 41.6 Const Other: Obesity noted also evidence of increased facial hair and shaving.. General: healthy appearing, comfortable, no acute distress, well developed and alert Nutritional Appearance: average body habitus Orientation/consciousness: patient oriented x3 Limitations: no limitations HEENT Head: Yes normocephalic Neck Neck: Yes normal visual inspection Chest Chest palpation & inspection: normal inspection of the chest Breast/axilla inspection: normal inspection of the breasts and normal inspection of the axillae Breast/axilla palpation: normal palpation of the breasts and normal palpation of the axillae Resp Effort & Inspection: normal respiratory effort GI Inspection: Yes normal to inspection, No Abdominal wall edema and No distended Palpation (GI): Soft to palpation and nontender Other: Labia minora show evidence of subcuticular accumulations of sebum including 1 large 2 cm collection left labia minora. Patient states she has always had that and her mother has the same thing and once it popped but then it grew back. General: Yes bladder normal to palpation External Female Exam: normal external appearance and normal appearance of the urethra Speculum Exam - Vagina: normal appearance of the vagina, normal palpation and normal vaginal discharge Speculum Exam - Cervix: normal appearance of the cervix, normal palpation and nontender Bimanual exam- vagina & uterus: normal bimanual exam, normal palpation, uterine size normal, bladder normal to palpation, consistency normal, normal palpation, uterine mobility normal, uterine shape normal, No Cervical tenderness present, non-tender and no cervical motion tenderness Bimanual Exam- Adnexa, other: normal adnexae, no masses, normal and No adnexal tenderness Neuro General: patient oriented x3 Assessment & Plan Assessment & Plan (1) Prediabetes: Code(s): R73.03 - Prediabetes (2) Screen for sexually transmitted diseases: Code(s): Z11.3 - Encounter for screening for infections with a predominantly sexual mode of transmission (3) Cervical cancer screening: Code(s): Z12.4 - Encounter for screening for malignant neoplasm of cervix (4) Hirsutism: Code(s): L68.0 - Hirsutism (5) Obesity, morbid, BMI 40.0-49.9: Code(s): E66.01 - Morbid (severe) obesity due to excess calories (6) Hx of removal of ovary: Comment: Right side Plan 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 She has a history of an ectopic she has a history of 1 child many years ago delivered by . And she also has a history of an ovarian cyst for which her ovary was taken out because the cyst was 12 cm.. She has always had issues with weight she was just told she was prediabetic by her primary doctor and she has started on a diet and she is eating only lean protein and cut out rice and pasta and bread and she is cooking things in an air Fryer and trying to eat healthy and has left soda and cookies and candy behind. She has lost about 50 lb. She wants to know if she could have some hormone test because she is worried about could she get in the future she does want to have 1 more child but not right now her ex partner told her that he had an infection and s howed her the prescription which was for doxy Cyclen. But she does not know for sure what he had so she wants to get tested. Discussed all of the above and the likelihood that she may have PCOS and the increased role of elevated hormones and metabolic disorders consistent with prediabetes in the face of obesity. Discussed that she is absolutely on the right track with her healthy efforts at eating and changing how she is approaching food and she should be very proud of herself with her weight loss. I will order testing for STDs as well as some hormone levels I did discuss with her that the most important thing she can do for her health and future childbearing potential is to continue on her weight loss journey and diminish her chances of having out right diabetes in a as well as hypertensive disorders as as well. Orders: Orders Thyroid Stimulating Hormone Today L68.0 - Hirsutism, R73.03 - Prediabetes, Z11.3 - Encounter for screening for infections with a predominantly sexual mode of transmission, Z12.4 - Encounter for screening for malignant neoplasm of cervix Hepatitis B Surface Antigen Today L68.0 - Hirsutism, R73.03 - Prediabetes, Z11.3 - Encounter for screening for infections with a predominantly sexual mode of transmission, Z12.4 - Encounter for screening for malignant neoplasm of cervix Hepatitis C Antibody Today L68.0 - Hirsutism, R73.03 - Prediabetes, Z11.3 - Encounter for screening for infections with a predominantly sexual mode of transmission, Z12.4 - Encounter for screening for malignant neoplasm of cervix HIV Ab/Ag Today L68.0 - Hirsutism, R73.03 - Prediabetes, Z11.3 - Encounter for screening for infections with a predominantly sexual mode of transmission, Z12.4 - Encounter for screening for malignant neoplasm of cervix Syphilis Screen Today L68.0 - Hirsutism, R73.03 - Prediabetes, Z11.3 - Encounter for screening for infections with a predominantly sexual mode of transmission, Z12.4 - Encounter for screening for malignant neoplasm of cervix DHEA Sulfate Today E66.01 - Morbid (severe) obesity due to excess calories, L68.0 - Hirsutism, R73.03 - Prediabetes, Z11.3 - Encounter for screening for infections with a predominantly sexual mode of transmission, Z12.4 - Encounter for screening for malignant neoplasm of cervix Testosterone, Free/Total Today E66.01 - Morbid (severe) obesity due to excess calories, L68.0 - Hirsutism, R73.03 - Prediabetes, Z11.3 - Encounter for screening for infections with a predominantly sexual mode of transmission, Z12.4 - Encounter for screening for malignant neoplasm of cervix Bacterial Vaginosis Panel Today Z01.419 - Encounter for gynecological examination (general) (routine) without abnormal findings CT NG by PCR Today Z01.419 - Encounter for gynecological examination (general) (routine) without abnormal findings Pap Smear Today Z01.419 - Encounter for gynecological examination (general) (routine) without abnormal findings Coding Level of Care Code New Pt Prev Care 18-39yr([id number] Diagnoses Prediabetes R73.03 Screen for sexually transmitted diseases Z11.3 Cervical cancer screening Z12.4 Hirsutism L68.0 Obesity, morbid, BMI 40.0-49.9 E66.01 Hx of removal of ovary
[2023-02-21 13:54] VITALS: BP 118/72; BMI 41.6
== END 2023-02-21 14:38 | disposition home or self-care (01) ==
LOC: HO.HWS 13:45
PROVIDERS: PCP Nurse Practitioner Family; Visit Provider Advanced Practice Midwife
DX: Z01.419 Encounter for gynecological examination (general) (routine) without abnormal findings (principal); R73.03 Prediabetes; Z11.3 Encounter for screening for infections with a predominantly sexual mode of transmission; L68.0 Hirsutism; E66.01 Morbid (severe) obesity due to excess calories
CPT/HCPCS: 99385

== ENCOUNTER 2023-02-21 13:45 | Outpatient (REF) | payer OTHER, SELFPAY ==
--- NOTE | ~2023-02-21 | XR_ITS ---
EXAMINATION: XR FOOT, RIGHT CLINICAL INFORMATION: Pain. COMPARISON: None available. TECHNIQUE: AP, lateral, and oblique views of the right foot. FINDINGS: Bony alignment and mineralization are normal. No fracture, dislocation or right ankle joint effusion is seen. Boehler's angle is normal. There are small posterior plantar calcaneal spurs. There is mild bunion formation. No focal soft tissue swelling, gas or foreign body is seen. XR/XR foot RT 2V IMPRESSION: 1. No fracture, dislocation or right ankle joint effusion is seen. 2. There are calcaneal spurs. 3. There is mild bunion formation.
[2023-02-21 16:19] LABS: Thyroid Stimulating Hormone 2.77 uIU/mL (0.32-4.0)
[2023-02-22 04:16] LABS: Syphilis Screen Nonreactive (Nonreactive)
[2023-02-22 04:40] LABS: HBsAGNum1 0.46 S/CO (0.00-0.99); HIV AB/AG Nonreactive (Nonreactive); HIV Num 1 0.05 S/CO (0.00-0.99); Hepatitis B Surface Antigen Negative (Negative); ~HepC Num1 0.07 S/CO (0.00-0.79); ~Hepatitis C Antibody Nonreactive (Nonreactive)
[2023-02-23 01:03] LABS: DHEA Sulfate 148 mcg/dL (19-237)
[2023-02-26 16:49] LABS: Testosterone, Free 3.3 pg/mL (0.1-6.4); Testosterone, Total 22 ng/dL (2-45)
== END 2023-02-21 13:46 | disposition home or self-care (01) ==
LOC: HO.LAB 13:45
PROVIDERS: PCP Nurse Practitioner Family; Visit Provider Advanced Practice Midwife
DX: Z11.4 Encounter for screening for human immunodeficiency virus [HIV] (principal); M79.671 Pain in right foot; R73.03 Prediabetes; L68.0 Hirsutism; E66.01 Morbid (severe) obesity due to excess calories; Z20.2 Contact with and (suspected) exposure to infections with a predominantly sexual mode of transmission
CPT/HCPCS: 36415; 73620; 82627; 84402; 84403; 84443; 86780; 86803; 87340; 87389

== ENCOUNTER 2023-02-21 15:01 | Outpatient (REF) | payer OTHER, SELFPAY ==
[2023-02-21 18:33] LABS: CT PCR NOT DETECTED (Not Detect.); NG PCR NOT DETECTED (Not Detect.)
[2023-02-22 09:29] LABS: BV Int Neg Control Negative (Negative); BV Int Pos Control Positive (Positive)
[2023-02-24 01:38] LABS: HPV mRNA E6/E7 rflx Not Detected (Not Detected)
== END 2023-02-21 15:02 | disposition home or self-care (01) ==
LOC: HO.LNP 15:01
PROVIDERS: Visit Provider Advanced Practice Midwife
DX: Z01.419 Encounter for gynecological examination (general) (routine) without abnormal findings (principal); Z11.51 Encounter for screening for human papillomavirus (HPV); Z20.2 Contact with and (suspected) exposure to infections with a predominantly sexual mode of transmission
CPT/HCPCS: 0353U; 87480; 87510; 87624; 87660; 88142

== ENCOUNTER 2023-05-03 06:08 | Outpatient (REF) | payer OTHER, SELFPAY ==
--- NOTE | ~2023-05-03 | FL_ITS ---
EXAMINATION: XR FLUOROSCOPY WITH IMAGES CLINICAL INFORMATION: Sacrococcygeal disorders, not elsewhere classified. Lumbar injection. COMPARISON: None available. TECHNIQUE: Fluoroscopy Supervised By: Dr. Mukund Ragland. Fluoroscopy Time: 0.6 minutes. Cumulative Dose: 27.4 mGy. DAP: 0.388 Gycm2. Images: 6. FINDINGS: Images demonstrate needle placement and contrast injection adjacent to the bilateral lateral L3, L4 and L5 vertebrae FL/FL guidance in treatment room IMPRESSION: Fluoroscopic guidance for pain management procedure.
== END 2023-05-03 06:09 | disposition home or self-care (01) ==
LOC: CF 06:08
PROVIDERS: Visit Provider Anesthesiology
DX: M53.3 Sacrococcygeal disorders, not elsewhere classified (principal); M46.1 Sacroiliitis, not elsewhere classified; M47.816 Spondylosis without myelopathy or radiculopathy, lumbar region
CPT/HCPCS: 64493; 64494; J2795; Q9967

== ENCOUNTER 2023-05-03 13:39 | Outpatient (AMB) | payer OTHER, SELFPAY ==
--- NOTE | 2023-05-03 13:59 | MHC.OFFVIS ---
Intake Vital Signs 05/03/23 15:25 05/03/23 15:26 Height 5 ft 6 in 5 ft 6 in Weight 258 lb 258 lb BMI 41.6 41.6 BP 140/80 H 128/60 Blood Pressure Location Lt brachial Lt brachial Position Sitting Sitting Respiration 16 16 Pulse 76 76 Pulse Source Pulse Oximeter Pulse Oximeter Pulse Oximetry (%) 98 98 Oxygen Delivery Method Room Air Room Air Comment pre-op post-op Intake Visit Reasons: Dx B/L L3-L4-DR L5 MBB Allergies No Known Allergies [No Known Allergies*] Allergy (Verified 05/03/23 15:27) PFSH Medical History Anxiety Asthma Bleeding hemorrhoids Bloody stools section wound complication Cholecystectomy planned Encounter for cholecystectomy Gall bladder stones Left sided sciatica Moderate recurrent major depression Morbid obesity Obesity Surgical History History of cholecystectomy Hx of removal of ovary Family History Maternal Grandmother Esophageal cancer Father Heart attack Family/Other Mental health disorder Substance use disorder Family/Other No problems noted. Social History Housing: Apartment Alcohol intake: current Alcohol intake frequency: holidays/special occasions only Alcohol type: wine Patient Tobacco Use Status: Current everyday Tobacco user Tobacco use type: Cigarette Cigarettes Per Day: 5 e-Cigarette/Vaping Use: Never Used Second Hand Smoke Exposure: No service: No Current occupational status: unemployed Gender identity: Female Cognitive needs: No Hearing needs: No Vision needs: Yes Female Reproductive History Menstrual Age of Menarche: 10 Physical Exam Vital Signs: Last Vital Signs Pulse 76 05/03/23 15:26 Resp 16 05/03/23 15:26 BP 128/60 05/03/23 15:26 Pulse Ox 98 05/03/23 15:26 Oxygen Delivery Method Room Air 05/03/23 15:26 BMI result Body Mass Index 41.6 Results Reviewed Results Reviewed: 05/03/23 14:07 LORazepam [Ativan] 1 mg .ROUTE .STK-MED ONE Assessment & Plan Assessment & Plan (1) Bilateral sacroiliitis: Code(s): M46.1 - Sacroiliitis, not elsewhere classified (2) Pain of both sacroiliac joints: Code(s): M53.3 - Sacrococcygeal disorders, not elsewhere classified (3) Rheumatoid arthritis: Code(s): M06.9 - Rheumatoid arthritis, unspecified (4) Spondylosis of lumbar region without myelopathy or radiculopathy: Code(s): M47.816 - Spondylosis without myelopathy or radiculopathy, lumbar region Plan: Bilateral L3-L4 does ramus L5 medial branch block diagnostic. Informed consent was explained to the patient. All questions were explained and? answered.? The patient was taken inside the operating room where she was positioned prone on the operating table.? Time-out was performed delineating correct site, side, the nature of the procedure, patient's allergy, preoperative antibiotic if needed.? All operating room staff was participating in OR time-out procedure. The lower back was prepped with ChloraPrep and draped with sterile towels.? Sterilely draped C-arm was brought over the operating field and sq picture of L4-and L5 vertebra and S1 AREA were delineated on the screen.? Point of interest were delineated as connection of superior articular process of L4 and L5 vertebra bilaterally with corresponding transverse processes as well as connection of the sacral alae bilaterally with superior articular process of S1.? The projection of the point of interest to the skin were injected with the small amount of local anesthetic lidocaine 2% 1-1.5 cc.? After that 22 gauge 3-1/2 inch spinal needle was driven sequentially to the points of interest in tunnel vision fashion. After needles gently contacted the bone at the point of interests the needle was injected with small amount of the contrast.? The injection of the contrast did not demonstrate any intravascular or intrathecal spread of the contrast.? After that injection of the? ropivacaine 0.5%-1cc was performed at each needle location.? Upon completion of the injections? needle was? removed and sterile Band-Aids were applied.? The? patient was taken outside of the operating room to recovery room where she recovered uneventfully.? She went home without immediate complications. Plan Right hip injection is negative for arthritis. The patient is convinced that she is suffering from arthritis. Bilateral sacroiliac joint injection results in no pain improvement. 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 She also wants me to refer her to flatwork feeder but I recommended her for this question to applied to her primary care physician Dr. Hanna. I do not have any flatwork feeder in mind for whom I would refer her. I will schedule this patient for bilateral sacroiliac joint diagnostic. She needs to get engaged with physical therapy. She is asking for stronger medications to help her pain. She is asking for tramadol. I explained to her that our opioid program currently is closed. She may requests tramadol from her primary care physician. Orders: Orders FL guidance in treatment room 05/03/23 M53.3 - Sacrococcygeal disorders, not elsewhere classified Coding Level of Care Code Procedure Only Diagnoses Bilateral sacroiliitis M46.1 Pain of both sacroiliac joints M53.3 Rheumatoid arthritis M06.9 Spondylosis of lumbar region without myelopathy or radiculopathy M47.816
[2023-05-03 15:25] VITALS: BP 140/80; PULSE 76; RESP 16; O2SAT 98; BMI 41.6
[2023-05-03 15:26] VITALS: BP 128/60; PULSE 76; RESP 16; O2SAT 98; BMI 41.6
== END 2023-05-03 15:03 | disposition home or self-care (01) ==
LOC: HO.PMCPRC 13:39
PROVIDERS: PCP Internal Medicine; Visit Provider Anesthesiology
DX: M47.816 Spondylosis without myelopathy or radiculopathy, lumbar region (principal)
CPT/HCPCS: 64493; 64494

== ENCOUNTER 2024-06-08 15:44 | Emergency (ER) | payer OTHER, SELFPAY ==
--- NOTE | ~2024-06-08 | US_ITS ---
EXAMINATION: US TRANSVAGINAL US TRANSABDOMINAL INDICATION: lower abdominal pain/pelvic pain, hx of ectopic. COMPARISON: Pelvic ultrasound 12/16/2020. TECHNIQUE: Transabdominal and transvaginal pelvic ultrasound was performed. Color and spectral Doppler evaluation of the vasculature. FINDINGS: Single intrauterine is visualized. There is an oval anechoic structure eccentrically positioned within the uterine fundus, indicative of an early gestational sac. A yolk sac and pole are identified. The crown rump length measures approximately 0.9 cm, corresponding to a gestational age of 7 weeks 0 days. A heart rate of 144 beats per minute is identified. No adnexal masses are identified. The right ovary is surgically absent. The left ovary measures 3.1 x 3.1 x 2.8 cm. Corpus luteal cyst measuring 1.6 x 1.9 x 1.8 cm noted. Arterial and venous waveforms are identified in the left ovary on spectral Doppler assessment. There is no significant free pelvic fluid. US/US OB pelvic and transvaginal IMPRESSION: Single living intrauterine with a sonographic estimated gestational age of 7 weeks 0 days, corresponding with an Estimated Due Date of 01/25/2025. Size matches dates. Electronically signed by: Angelica Strong DO 06/08/2024 05:21 PM [facility]
[2024-06-08 15:47] VITALS: BP 131/68; PULSE 96; RESP 19; TEMP 36.6; O2SAT 99; BMI 37.1
--- NOTE | 2024-06-08 15:47 | ED_ITS ---
HPI - General Adult General Stated complaint: , lower back pain, congestion Related Data Previous Rx's ?Medication ?Instructions ?Recorded albuterol sulfate 90 mcg/actuation 2 puff inhalation Q4-6H PRN 01/02/22 aerosol inhaler shortness of breath or wheezing #6.7 grams Ventolin HFA 90 mcg/actuation 2 puff inhalation Q6H PRN 08/17/22 aerosol inhaler (albuterol sulfate) shortness of breath or wheezing 30 days #8 grams lidocaine 5 % topical patch 1 patch topical DAILY PRN pain 30 08/17/22 days #15 ea zolpidem 5 mg tablet 5 mg PO BEDTIME PRN sleep 30 days 08/17/22 #30 tabs fluticasone propionate 50 1 spray intranasal DAILY #100 mL 11/12/22 mcg/actuation nasal spray,suspension (Flonase Allergy Relief) bupropion HCl 150 mg 24 hr tablet, 150 mg PO QAM 90 days #90 tabs 02/15/23 extended release cetirizine 10 mg tablet (Zyrtec) 10 mg PO DAILY #30 tabs 03/24/23 tramadol 50 mg tablet 50 mg PO DAILY PRN pain 30 days 01/29/24 #20 tabs buspirone 7.5 mg tablet 7.5 mg PO BID 30 days #60 tabs 02/07/24 tizanidine 4 mg tablet 4 mg PO Q8H PRN muscle spasticity 02/14/24 30 days #90 tabs triamcinolone acetonide 0.1 % 1 appl topical BID 14 days #15 02/14/24 topical cream grams Allergies Allergy/AdvReac Type Severity Reaction Status Date / Time No Known Allergies Allergy Verified 06/08/24 15:48 [No Known Allergies*] [facility] Past Medical History Medical History Anxiety Asthma Bleeding hemorrhoids Bloody stools section wound complication Cholecystectomy planned Encounter for cholecystectomy Gall bladder stones Left sided sciatica Moderate recurrent major depression Morbid obesity Obesity Surgical History History of cholecystectomy Hx of removal of ovary Family History Family History Maternal Grandmother Esophageal cancer Father Heart attack Family/Other Mental health disorder Substance use disorder Family/Other No problems noted. Social History Social History Housing: Apartment Alcohol intake: current Alcohol intake frequency: holidays/special occasions only Alcohol type: wine Patient Tobacco Use Status: Current everyday Tobacco user Tobacco use type: Cigarette Cigarettes Per Day: 5 e-Cigarette/Vaping Use: Never Used Second Hand Smoke Exposure: No service: No Current occupational status: unemployed Gender identity: Female Cognitive needs: No Hearing needs: No Vision needs: Yes Course Course Course Narrative: RMEarl, this is a rapid medical exam performed by Roney Law please refer to primary provider for complete H&P- 38-year-old female presents for evaluation of lower back pain. She reports that she is , about 6 or 7 weeks. She is . She had an ectopic about 3 years ago. She had a right oopho rectomy prior to the ectopic and only has 1 ovary. Plan for ectopic rule out Discharge Plan Discharge Prescriptions: No Action lidocaine 5 % adhesive patch,medicated 1 patch topical DAILY PRN (Reason: pain) 30 Days Qty: 15 0RF Rx Instructions: leave on most painful area for up to 12 hrs bupropion HCl 150 mg tablet extended release 24 hr 150 mg PO QAM 90 Days Qty: 90 1RF cetirizine [Zyrtec] 10 mg tablet 10 mg PO DAILY Qty: 30 3RF tramadol 50 mg tablet 50 mg PO DAILY PRN (Reason: pain) 30 Days Qty: 20 0RF buspirone 7.5 mg tablet 7.5 mg PO BID 30 Days Qty: 60 0RF tizanidine 4 mg tablet 4 mg PO Q8H PRN (Reason: muscle spasticity) 30 Days Qty: 90 8RF triamcinolone acetonide 0.1 % cream 1 appl topical BID 14 Days Qty: 15 0RF albuterol sulfate 90 mcg/actuation HFA aerosol inhaler 2 puff inhalation Q4-6H PRN (Reason: shortness of breath or wheezing) Qty: 6.7 0RF zolpidem 5 mg tablet 5 mg PO BEDTIME PRN (Reason: sleep) 30 Days Qty: 30 0RF albuterol sulfate [Ventolin HFA] 90 mcg/actuation HFA aerosol inhaler 2 puff inhalation Q6H PRN (Reason: shortness of breath or wheezing) 30 Days Qty: 8 1RF fluticasone propionate [Flonase Allergy Relief] 50 mcg/actuation spray,suspension 1 spray intranasal DAILY Qty: 100 0RF Rx Instructions: administer into each nostril Print Language: Japanese
[2024-06-08 17:56] LABS: MANUAL DIFF FLAG NO
[2024-06-08 17:58] LABS: Appearance Urine Clear; Color Urine Yellow; Glucose Urine UA Negative (Negative); Leukocyte Esterase Urine Negative (Negative); Nitrite Urine Negative (Negative); PH 5.5 (5.0-9.0); Specific Gravity - Urine 1.025 (1.005-1.025); Urine Blood Negative (Negative); Urine Ketones Negative (Negative); Urine Protein Negative (Neg-Trace)
[2024-06-08 18:00] LABS: Basophils Percent Auto 0.2 % (0-2); Eosinophils Absolute Auto 0.3 X10*3/uL (0.0-0.4); Eosinophils Percent Auto 3.7 % (0-4); Hematocrit 38.6 % (37.0-47.0); Hemoglobin 12.9 g/dl (12.0-16.0); Imm Gran Abs Auto 0.03 X10*3/uL (0.00-0.03); Imm Gran Pct Auto 0.4 % (0.0-0.4); Lymphocytes Absolute Auto 1.9 X10*3/uL (1.2-4.9); Lymphocytes Percent Auto 22.8 % (20-40); Mean Corpuscular HGB Conc 33.4 g/dl (31.0-35.0); Mean Corpuscular Hemoglobin 26.3 pg (27.0-33.0); Mean Corpuscular Volume 78.6 fL (80.0-98.0); Mean Platelet Volume 10.9 fL (9.4-12.3); Monocytes Absolute Auto 0.4 X10*3/uL (0.1-1.2); Neutrophils Absolute Auto 5.7 x10*3/uL (2.0-8.3); Neutrophils Percent Auto 67.9 % (45-73); Platelet Count 213 X10*3/uL (160-400); Red Blood Count 4.91 X10*6/uL (4.20-5.50); White Blood Count 8.4 X10*3/uL (4.8-10.8)
[2024-06-08 18:03] LABS: Bacteria Urine None Seen (None Seen); Hyaline Casts Urine 0-2 /LPF (0-2); RBC Urine 0-2 /HPF (0-2); WBC Urine 0-5 /HPF (0-5)
[2024-06-08 18:04] LABS: IDNOW Serial# 08D9AD1C; Strep A Nucleic Acid Negative (Negative)
[2024-06-08 18:19] LABS: Alanine Aminotransferase 36 U/L (0-31); Albumin Level 4.2 g/dL (3.5-5.0); Alkaline Phosphatase 62 U/L (39-117); Anion Gap 12 (12-20); Aspartate Amino Transferase 21 U/L (5-31); Bilirubin Total 0.2 mg/dL (0.0-1.0); Blood Urea Nitrogen 15 mg/dL (9-16); Calcium 9.2 mg/dL (8.4-10.2); Carbon Dioxide 23 mmol/L (22-29); Chloride 106 mmol/L (96-108); Creatinine Clr Calc Pharmacy 135.5; Estimated Glomerular Filt Rate > 60; Glucose Random 113 mg/dL (60-115); Lipase 22 U/L (8-78); Sodium 137 mmol/L (135-145); Total Protein 7.2 g/dL (6.5-8.0)
[2024-06-08 18:36] LABS: Influenza A PCR NEGATIVE (Negative); Influenza B PCR NEGATIVE (Negative); Resp Syncy Virus RNA Qual PCR NEGATIVE (Negative); SARS COV2 PCR INHOUSE NEGATIVE (Negative)
[2024-06-08 18:52] LABS: HCG Quantitative 32859 mIU/mL
== END 2024-06-08 23:55 | disposition left against medical advice (07) ==
PROVIDERS: Physician Assistant; Emergency Provider Internal Medicine
DX: M54.50 Low back pain, unspecified (principal); O26.899 Other specified pregnancy related conditions, unspecified trimester; Z03.818 Encounter for observation for suspected exposure to other biological agents ruled out; Z53.21 Procedure and treatment not carried out due to patient leaving prior to being seen by health care provider
CPT/HCPCS: 0241U; 36415; 76801; 76817; 80053; 81001; 83690; 84702; 85025; 86900; 86901; 87651; 99281; 99282

== ENCOUNTER 2024-08-08 17:10 | Outpatient (AMB) | payer OTHER, SELFPAY ==
--- NOTE | 2024-08-08 17:11 | A.OFFPC_ITS ---
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 Accompanied by: Self / Same As Patient Allergies No Known Allergies [No Known Allergies*] Allergy (Verified 08/08/24 17:30) Medication List - Last Reconciled 08/08/24 by Lisette Poon MD albuterol sulfate 90 mcg/actuation 2 puffs inhalation Q4-6H PRN bupropion HCl XL 150 mg PO QAM 90 days buspirone 7.5 mg PO BID 30 days cetirizine (Zyrtec) 10 mg PO DAILY tizanidine 4 mg PO Q8H PRN 30 days Ventolin HFA 90 mcg/actuation (albuterol sulfate) 2 puffs inhalation Q6H PRN 30 days NS zolpidem 5 mg PO BEDTIME PRN 30 days Tobacco use date assessed: 08/08/24 Dental Screening Dental Screen Date: 08/08/24 Did you have a dental visit in the last 12 months?: No Did you have a dental problem in the last 6 months where you did not have access to dental care?: No Was dental information given to patient?: Patient has dentist HPI HPI Comments History of Present Illness Details The patient is a 38-year-old female presenting for a physical examination as part of her care and management of her chronic conditions. She is currently four months with her second child. The patient's asthma is managed with an inhaler. She has reported experiencing significant nasal congestion and is seeking a safe medication for allergies during . Her surgical history includes a cholecystectomy and right oophorectomy. Family history reveals her father of a myocardial infarction, and her mother is alive with a history of osteoporosis, depression, and anxiety. The patient was tested for COVID-19 and influenza, with negative results. She denies symptomatic COVID-19 infection but experienced mild flu symptoms. The patient reports intermittent smoking but abstains from alcohol consumption. Vaccination status includes the tetanus vaccine typically given during , but it is unclear if it has been received during this . All prior STI and HIV tests were reportedly negative. Complains of nasal congestion and cough most likely due to a cold. No sick contacts. Declines COVID, flu and RSV test. - Monitoring health and progre ss - Discussion of tetanus vaccination and STI screening during [facility] Medical History (Updated 08/09/24 @ 08:49 by Lisette Poon MD) Bilateral sacroiliitis Rheumatoid arthritis Bleeding hemorrhoids Moderate recurrent major depression Bloody stools Left sided sciatica Morbid obesity Encounter for cholecystectomy section wound complication Obesity Gall bladder stones Anxiety Asthma Cholecystectomy planned Surgical History History of cholecystectomy Hx of removal of ovary Family History (Updated 08/08/24 @ 17:36 by Lisette Poon MD) Maternal Grandmother Esophageal cancer Father Heart attack Family/Other Mental health disorder Substance use disorder Family/Other No problems noted. Mother Lumbar degenerative disc disease Social History (Updated 08/08/24 @ 17:37 by Lisette Poon MD) Housing: Apartment Alcohol intake: former Patient Tobacco Use Status: Current someday Tobacco user Tobacco use type: Cigarette Cigarettes Per Day: 5 e-Cigarette/Vaping Use: Never Used Second Hand Smoke Exposure: No service: No Current occupational status: unemployed Gender identity: Female Cognitive needs: No Hearing needs: No Vision needs: Yes Female Reproductive History Menstrual Age of Menarche: 10 Questionnaire PHQ-9 Over the last 2 weeks, how often have you been bothered by any of the following problems? 1. Little interest or pleasure in doing things: not at all 2. Feeling down, depressed, or hopeless: several days 3. Trouble falling or staying asleep, or sleeping too much: not at all 4. Feeling tired or having little energy: not at all 5. Poor appetite or overeating: not at all 6. Feeling bad about yourself - or that you are a failure or have let yourself or your family down: not at all 7. Trouble concentrating on things, such as reading the newspaper or watching television: not at all 8. Moving or speaking so slowly that other people could have noticed. Or the opposite - being so fidgety or restless that you have been moving around a lot more than usual: not at all 9. Thoughts that you would be better off or of hurting yourself in some way: not at all Total score: 1 Depression Screening Interpretation: Negative Depression Screening Done: Yes 26190 - PHQ-9 Billing: Yes Source: Developed by Drs. Bennett Jordan, Ioana Swan, Apollo Mora and colleagues, with an educational xiomara from [employer]. Thrive Questionnaire Date Thrive assessed: 08/08/24 I am a: Patient What is your living situation today?: I have a steady place to live Within the past 12 months, did the food you bought not last and you didn't have the money to get more?: Never true Within the past 12 months, did you worry whether your food would run out before you got money to buy more?: Never true Do you have trouble paying for medicines?: No Do you have trouble getting transportation to medical appointments?: No Do you have trouble paying your heating and electricity bill?: No Do you have trouble taking care of your child, family member or friend?: No Do you have trouble with day-to-day activities such as bathing, preparing meals, shopping, managing finances, etc.?: No Are you currently unemployed and looking for a job?: No Are you interested in more education?: No Please select the resources that you would like help with: None Currently or been in a relationship where the following occur: No concerns reported THRIVE Score: 0 AUDIT C Alcohol Use Questionnaire (AUDIT-C) 1. How often do you have a drink containing alcohol?: Never Total Score: 0 Score Reviewed/Action Taken: No KHARI-7 AMB Questionnaire KHARI-7 Date KHARI - 7 assessed: 08/08/24 Feeling nervous, anxious, or on edge: 1 = Several days Not being able to stop or control worryin = Not at all Worrying too much about different things: 1 = Several days Trouble relaxin = Not at all Being so restless that it is hard to sit still: 0 = Not at all Becoming easily annoyed or irritable: 0 = Not at all Feeling afraid as if something awful might happen: 0 = Not at all Total KHARI-7 score (0-4 normal; 5-9 mild; 10-14 moderate; 15-21 severe): 2 Source: Developed by Drs. Bennett Jordan, Ioana Swan, Apollo Mora and colleagues, with an educational xiomara from [employer]. KHARI-7 Assessment Billing KHARI-7 Assessment Tool: KHARI-7 Assessment 82272 Review of Systems Const All systems reviewed & are unremarkable except as noted in HPI and below Card Denies chest pain at rest, Denies chest pain with activity, Denies edema, Denies irregular heart rhythm, Denies claudication, Denies dyspnea, Denies dyspnea on exertion, Denies orthopnea, Denies paroxysmal nocturnal dyspnea and Denies slow heart rate Resp Denies cough, Denies dyspnea and Denies dyspnea on exertion Denies urinary incontinence, Denies urinary hesitancy and Denies urinary urgency Musc Denies abnormal gait, Denies atrophy, Denies deformity and Denies limited range of motion Skin/Breast Denies bleeding lesions, Denies changing lesions and Denies rash Neuro Denies abnormal gait, Denies behavioral changes and Denies lack of coordination Psych Denies behavioral changes Physical exam (Primary Care) Vital Signs: Last Vital Signs BP 112/70 08/08/24 17:12 BMI result Body Mass Index 43.3 Tobacco/Smoking Status: Tobacco use Status Tobacco use date assessed 08/08/24 08/08/24 17:22 Patient Tobacco Use Status Current someday Tobacco 08/08/24 17:37 Tobacco use type Cigarette 08/08/24 17:37 e-Cigarette/Vaping Use Never Used 08/08/24 17:37 PHQ-9: PHQ-9 Score PHQ-9: Total score 1 08/08/24 17:33 Depression Screening Interpretation: Negative Thrive Assessment: Date of Thrive Assessment Date Thrive assessed 08/08/24 08/08/24 17:22 Currently or been in a relationship where the following occur: No concerns reported [facility] Head: Yes normal to inspection, Yes normocephalic and Yes atraumatic Ears: external ears normal Eyes General: appearance normal, both eyes and all related structures Eyelids: Yes eyelids normal Conjunctivae: conjunctivae normal Neck Neck: Yes normal visual inspection and Yes supple Resp Effort & Inspection: normal respiratory effort Auscultation: clear to auscultation bilaterally Cardio Jugular venous distension: no JVD Rate: regular rate Rhythm: regular rhythm Heart sounds: S1 normal heart sound present and S2 normal heart sound present GI Inspection: Yes normal to inspection Palpation (GI): Soft to palpation and nontender Auscultation: normal bowel sounds Skin General skin exam: no rashes or lesions noted Neuro General: no focal motor deficits Extrem General: Yes full ROM Psych Appearance: grossly normal Coding Level of Care Code Est Pt Level 3 (31766) Est Pt Prev Care 18-39y(45330) Diagnoses Physical exam Z00.00 Obesity, morbid, BMI 40.0-49.9 E66.01 URI (upper respiratory infection) J06.9 Additional Codes KHARI-7 Assessment Billing - KHARI-7 Assessment Tool: KHARI-7 Assessment 21326 ([id number]) PHQ-9 - 22620 - PHQ-9 Billing: Yes ([id number]) Time Spent (min) 33 Assessment & Plan Assessment & Plan (1) Physical exam: Code(s): Z00.00 - Encounter for general adult medical examination without abnormal findings Category: Medical (2) Obesity, morbid, BMI 40.0-49.9: Code(s): E66.01 - Morbid (severe) obesity due to excess calories Category: Medical (3) URI (upper respiratory infection): Code(s): J06.9 - Acute upper respiratory infection, unspecified Category: Medical Plan - Manage asthma with ongoing use of inhaler - Prescription of a safe nasal spray for -associated allergic rhinitis - Monitor health and consider further testing or imaging if symptoms arise - Recommend continuation of care including scheduled immunizations and additional laboratory tests if necessary - Address social factors potentially impacting health and smoking cessation support Patient was informed and verbally consented to the use of an ambient scribe for clinic note documentation during this visit. I discussed with the patient that her asthma is being actively managed with her inhaler, and I confirmed the prescription of a nasal spray that is safe during to manage her allergic rhinitis. We reviewed the importance of continuing regular visits and staying up to date with vaccinations such as the tetanus vaccine. We also talked about her previous surgeries and how they might affect current management decisions. We explored her family history to highlight potential risks and discussed smoking cessation resources. I encouraged her to maintain open communication about any new symptoms or con cerns. Medications: New fluticasone propionate 50 mcg/actuation (Flonase Allergy Relief) administer into each nostril 1 spray intranasal DAILY 16 grams 3RF 30 days prednisone see taper instructions 5 mg PO DIRECTED 3 tabs 0RF 3 days Refilled albuterol sulfate 90 mcg/actuation 2 puffs inhalation Q4-6H PRN 6.7 grams 0RF shortness of breath or wheezing Patient Instructions: - Continue using the inhaler as needed for asthma management - Use prescribed nasal spray for relief of allergic rhinitis symptoms - Schedule and attend all care appointments - Avoid smoking to improve overall health and outcomes - Monitor for any new symptoms and report them promptly to the clinic - Discuss vaccination status and aim to receive any pending vaccines recommended for
[2024-08-08 17:12] VITALS: BP 112/70; BMI 43.3
--- OUTSIDE RECORDS SUMMARY | 2024-08-08 17:12 | XMS_ITS | Clinical Summary ---
Author Organization [facility] [address] [place] [address] [place] [phone] Phone Care Team Providers Care Suction Plate Roller Hand Name Role Phone Lisette Poon MD Primary Care Provider [phone] Allergies No known active allergies Medications albuterol HFA (PROAIR HFA ; PROVENTIL HFA ; VENTOLIN HFA) 90 mcg/actuation inhaler Inhale 2 puffs by mouth every 6 (six) hours if needed for wheezing. Active Vitamin iron fum-folic acid 27-0.8 mg per tablet TAKE 1 TABLET BY MOUTH 1 TIME EACH DAY. 30 tablet 11 5 Active aspirin 81 mg EC tablet Take 2 tablets (162 mg total) by mouth 1 (one) time each day. 60 each 11 5 07/26/19 26 Active famotidine (PEPCID) 20 mg tablet Take 1 tablet (20 mg total) by mouth 2 (two) times a day. 180 tablet 3 5 07/26/19 26 Active vitamin iron fum-folic acid 27-0.8 mg per tablet Take 1 tablet by mouth 1 (one) time each day. 30 each 4 07/24/19 25 Discontinued Hospital, Clinic, or Other Facility Administered Medication Ordered Dose Route Frequency Start Date End Date Status acetaminophen (TYLENOL) tablet 500 mgIndications:Less than 8 weeks gestation of 500 mg oral Every 6 hours PRN 06/14/2024 07/14/2024 Ended Active Problems Problem Noted Date Diagnosed Date Sciatica of right side 07/26/2024 Overview (07/26/2024): Plan was for MRI and possible surgery, but got . Previously injection x 2. Assessment & Plan (07/26/2024 12:11 PM EST): I offered PT referral. She was agreeable, but not sure she can make it work with her schedule. Extrinsic asthma without complication 07/26/2024 Overview (07/26/2024): No history of admission. Steroids once a couple years ago. Follows with PCP. Assessment & Plan (07/26/2024 12:25 PM EST): I recommended Rebeca call her PCP office today to get an appt within the next week to be seen. She was counseled that asthma can significantly worse in . She should continue using her rescue inhaler prn and seek attention in the ED if her SOB worsens. care, subsequent in first [facility] 07/13/2024 Overview (07/13/2024): 1. [facility] site: [facility]: [address] [place] [phone] ([phone]) 2. Delivery site: [facility] 3. Mobile Mommas: No 4. Dating criteria: LMP 5. Blood type: 6. Genetic screening: Date: Result: Panorama: Ordered Horizon: Ordered Nuchal: Ordered 07/19/24 @ 3pmLuis Survey: MSAFP: 6. GBS: Date: 7. FOB name: Shiva 8. Plans A. Epidural or other pain management - B. Labor support identified - C. Tdap - Date: Flu - Date: D. Breast or Bottle feed: Bottle feeding E. Baby's name - F. Circumcision - 9. Hospital Course: Obesity complicating childbirth 07/13/2024 Overview (07/26/2024): HgbA1C and 1 hour GTT at initial labs- normal ASA 162mg at 12 weeks until delivery- ordered Detailed anatomy ultrasound Repeat GTT 24-28 weeks if early is normal Pre-preg BMI >40: NST weekly at 34 weeks Growth US at 32 and 36 weeks for BMI >40 BMI of 50 by 28wks transfer to [facility] DVT prophylaxis- Lovenox if CS and BMI >35 Assessment & Plan (07/26/2024 12:23 PM EST): Discussed risks associated with obesity in including increased risk of HTN, diabetes, . Also discussed risk of undiagnosed anomalies. She was counseled that recommended weight gain is between 10-15 lb. She should eat a balanced diet and incorporate regular moderate activity. She was encouraged to start ASA daily and to have baseline pre-eclampsia labs on her way out. Multigravida of advanced maternal age in first t rimester 07/13/2024 Overview (07/13/2024): ASA 162 mg daily at 12w through delivery Referral for NIPT if desired Detailed US 3rd trimester growth US if maternal age 40 or greater Weekly NST at 36 weeks Offer delivery at 39 weeks if maternal age 40 or greater Assessment & Plan (07/26/2024 12:23 PM EST): ASA ordered, NIPT pending History of right oophorectomy 07/13/2024 History of cholecystectomy 07/13/2024 in first trimester with history of ectopic 07/13/2024 History of delivery 07/13/2024 Overview (07/26/2024): 2009 FTP and NRFHT at [facility] Repeat for 39 weeks Assessment & Plan (07/26/2024 12:03 PM EST): Plans repeat Estimated Date of Delivery Comme nts Yes 01/25/2025 Date entered manuel or to episode creation Encounters Date Type Department Care Team Description 08/02/2024 Telephone Obstetrics and Gynecology - [address] [phone] Chela Villalba MD 07/26/2024 12:30 PM EST Lab Draw Station - [address] Obesity complicating childbirth 07/26/2024 11:30 AM EST Initial Obstetrics and Gynecology - [address] [phone] Chela Villalba MD GA: 13w6d 07/19/2024 3:00 PM EST Ancillary Procedure Maternal Medicine - [address] [phone] care, subsequent in first trimester 07/18/2024 Telephone Obstetrics and Gynecology - [address] [phone] Chela Villalba MD Problem 07/13/2024 11:10 AM EST Lab Draw Station - [address] in first trimester with history of ectopic (Primary Dx); care, subsequent in first trimester 07/13/2024 10:00 AM EST Clinical Support Obstetrics and Gynecology - [address] [phone] care, subsequent in first trimester (Primary Dx); Obesity complicating childbirth; Multigravida of advanced maternal age in first trimester; History of delivery 06/14/2024 9:00 AM EST Office Visit Obstetrics and Gynecology - [address] [phone] Nesha Piña, OTONIEL Less than 8 weeks gestation of (Primary Dx); test positive from Last 3 Months Surgical History Surgery Date Site/Laterality Comments OOPHORECTOMY 06/27/2019 - 06/26/2020 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 CHOLECYSTECTOMY 06/27/2020 - 06/26/2021 TONSILLECTOMY Medical History Medical History Date Comments Depression Anxiety Asthma Family History Medical History Relation Name Comments Heart disease Father Thyroid disease Half-Brother 1 No Known Problems Half-Sister 1 No Known Problems Half-Sister 2 No Known Problems Half-Sister 3 cancer esphogus Maternal Grandmother Lupus Mother Osteoporosis Mother Relation Name Status Comments Father Half-Brother 1 Alive Half-Brother 2 Alive Half-Brother 3 Alive Half-Brother 4 Alive Half-Brother 5 Alive Half-Sister 1 Alive Half-Sister 2 Alive Half-Sister 3 Alive Maternal Grandfather Maternal Grandmother Mother Alive Paternal Grandfather Paternal Grandmother Social History Tobacco Use Types Packs/Day Years Used Date Smoking Tobacco: Every Day Cigarettes Smokeless Tobacco: Never Tobacco Cessation:Ready to Q uit: Not Asked; Counseling Given: Not Answered Comments:Smokes 1 cigarette a day Alcohol Use Standard Drinks/Week Comments Not Currently 0 (1 standard drink = 0.6 oz pur e alcohol) Estimated Date of Delivery Comme nts Yes 01/25/2025 Date entered manuel or to episode creation Sex and Gender Information Value Date Recorded Sex Assigned at Not on file Legal Sex Female 10:45 PM EST Gender Identity Not on file Sexual Orientation Not on file Occupation Industry Job Start Date Job End Date student Not on file Not on file Not on file Obstetrics History Para Term AB IAB SAB Ectopic Multiple Livin g Live Births 3 1 1 1 1 1 1 Date Outcome GA Total Labor Labor/2nd/3rd Weight Sex Type Anes PTL Chikis A1 A5 Name Clin Ectopic 04/11 Term 40w 0d M CS-Un spec Epidura l Living Current Summary Episode Dates Number of Fetuses Estimated Date of Delivery 07/13/2024 - Present (08/08/2024) 01/25/2025 (based on Alternate TAURUS Entry) Dating Summary Based On TAURUS [place] Diff Last Menstrual Period on 04/20/2024 (Approximate ) 01/25/2025 Same Alternate TAURUS Entry 01/25/2025 Working Comment:Date entered prior t o episode creation Vitals Pregravid Weight Height TWG (As of 08/08/2024) Pregrav id BMI 1.676 m (66 ) Notes Progress Notes - Initial Pre usman - 07/26/2024 - GA:13w6d 07/26/2024 - 13w6d - Chela Abel MD OB 12 week appt IP: S: Rebeca is a 38 y.o. year old here for IP visit. Her is unplanned. She and the father of the baby are happy. 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 Patient's last menstrual period was 04/20/2024 (approximate). She is certain of her LMP with regular cycles. is currently dated by LMP confirmed by 1st trimester ultrasound. She complains of worsened back pain . She denies vaginal bleeding or cramping. No N/V. She is somewhat anxious as she cannot sleep well due to back pain. She is not sure she can do physical therapy due to her school schedule. She has been feeling more short of breath with worsening asthma symptoms since she has been . She used her rescue inhaler yesterday, but not today. No URI, but does report her allergies have been worse. She did not have a problem with her asthma in her last . Has a PCP at [facility]. Has never been admitted for asthma. Has used steroids once before and this was a couple years ago. O: Blood pressure 112/76, pulse 103, resp. rate 14, weight 121 kg (266 lb 9.6 oz), last menstrual period 04/20/2024. See OB physical and labs. Vitals BP: 112/76 Weight: 121 kg (266 lb 9.6 oz) No results found for: ABORH Lab Results Component Value Date RH Positive 07/13/2024 A: at 13w6d weeks gestation. 1. care, subsequent in first trimester 2. Screening for cervical cancer 3. Screening examination for venereal disease 4. in first trimester with history of ectopic 5. Obesity complicating childbirth 6. Multigravida of advanced maternal age in first trimester 7. History of delivery 8. Sciatica of right side 9. Moderate persistent extrinsic asthma without complication P: Pap obtained today. Genprobe obtained today. Oriented to THoNE MG and anticipated course. Discussed collaborative practice and [facility] delivery. Reviewed healthy eating and normal weight gain in . Encouraged patient to push PO fluids. Counseled about warning signs of the first trimester and how to contact property consultant provider. Discussed the benefits of breast feeding and strongly encouraged to consider this. Counseled regarding the diagnosis of anomalies. She was offered a referral to maternal medicine for nuchal lucency/[place] testing. She already accepted the referral. RTO 4 weeks. The patient does not require anesthesia consult. History of delivery Plans repeat Sciatica of right side I offered PT referral. She was agreeable, but not sure she can make it work with her schedule. Obesity complicating childbirth Discussed risks associated with obesity in including increased risk of HTN, diabetes, . Also discussed risk of undiagnosed anomalies. She was counseled that recommended weight gain is between 10-15 lb. She should eat a balanced diet and incorporate regular moderate activity. She was encouraged to start ASA daily and to have baseline pre-eclampsia labs on her way out. Multigravida of advanced maternal age in first trimester ASA ordered, NIPT pending Extrinsic asthma without complication I recommended Rebeca call her PCP office today to get an appt within the next week to be seen. She was counseled that asthma can significantly worse in . She should continue using her rescue inhaler prn and seek attention in the ED if her SOB worsens. This patient's VTE risk status is low. Chela Villalba MD on 07/26/2024 at 12:25 PM EST Progress Notes - Clinical Long pport - 07/13/2024 - GA:12w0d 07/13/2024 - 12w0d - Lauren Ocasio RN Rebeca Manuel is a 38 y.o. old female at 12w0d. This is Unplanned. The patient feels happy about the . The FOB is supportive.Pt Has been in a relationship with Shiva for 2 yrs. This is their first child together, She has a 15 yr old son who lives with her. This is his 5th child. Patient's last menstrual period was 04/20/2024 (approximate). (exact date)., which would make her currently 12w0d with an Estimated Date of Delivery: 01/25/25. She is approximate within days of her date. An ultrasound has not been ordered to confirm dating Patient has significant history of: 2009 (classical vs low transverse) Ectopic , obesity, asthma, AMA OB Past Medical History: Have you had or do you currently have: Diabetes? No Hypertension? No Heart disease, Mitral valve Prolapse, or Rheumatic fever? No An Autoimmune disease such as Lupus or Rheumatoid Arthritis? No Epilepsy, Seizures, or Spells? No Migraine Headaches? No Stroke or loss of function or sensation? No Additional Questions: Have you ever been treated for anxiety and/or depression? Yes Therapist PRN ,no meds Are you having problems with crying spells or loss of self-esteem? No Have you ever required psychiatric care? No Have you ever had hepatitis, liver disease or jaundice? No Have you ever been treated for blood clots in your veins, deep venous thrombosis, inflammation in the veins, thrombosis, phlebitis, pulmonary embolism or varicosities? No Have you had excessive bleeding after surgery or dental work? No Do you bleed more than other women after a cut or scratch? No Do you have a history of anemia? No Have you ever had Thyroid problems or taken Thyroid medications? No Do you have any other Endocrine Problems (ie. PCOS)? No Have you ever been in a major accident or suffered serious trauma? No Within the last year, has anyone hit, slapped, kicked or otherwise hurt you? No In the last year, has anyone forced you to have sex when you didn't want to? No Do you feel safe at home? Yes Have you ever received a blood transfusion? No Would you refuse a blood transfusion if a doctor judged to be medically necessary? No Would you rather than receive a blood transfusion? No If you answered yes to the above questions, is this for taoist reasons? No Do you know what your blood type is or if you are Rh Negative? No Have you ever had abnormal antibodies in your blood? No Have you ever had asthma? Yes Have you every had Tuberculosis? No Have you ever had any breast problems? No Have you ever breast fed? No Have you ever had any gynecological surgical procedures such as cervical conization, LEEP procedure, Laser treatment, cryosurgery of the cervix or dilation and curettage, etc? No Have you had any other surgical procedures? Yes ,see list Have you ever been hospitalized overnight for a non-surgical reason excluding normal delivery? No Have you ever had anesthesia complications? No Have you ever had an abnormal pap smear? No Do you have a history of abnormalties of the uterus? No Did your mother take LEN or any other hormones when she was with you? No Did it take more than one year to become ? No Have you ever been evaluated or treated for infertility? No Is there a history of medical problems in your family which you feel might adversely affect your health or ? No Do you have any other problems we have not asked you about which you feel may be important for us to know for this ? No Do you currently have any of the following symptoms since your last menstrual period: Abdominal pain, blood in the stool or urine, chest pain, shortness of breath, coughing or vomiting up blood, your heart racing or skipping beats, nausea and/or vomiting, pain on urination, or vaginal discharge or vaginal bleeding? No OB Infection History: Do you object to being tested for Hepatitis B? No Do you object to being tested for HIV? No Do you feel that you are at high risk for coming contact with the AIDS virus? No Have you ever been treated for tuberculosis? No Have you ever received the BCG vaccine? No Have you ever had a positive skin test for Tuberculosis? No Do you live with someone who has Tuberculosis? No Have you ever been exposed to Tuberculosis? No Do you have Genital Herpes? No Does your partner have Genital Herpes? No Have you had a rash or viral illness since your last period? No Have you ever had Gonorrhea, Chlamydia, Syphilis, Venereal Warts, Trichomoniasis, Pelvic Inflammatory Disease (PID) or any other sexually transmitted disease? No Do you know if you are a Group B Streptococcus Carrier? No Did you have the Chicken Pox/Varicella? Yes Were you vaccinated against Chicken Pox/Varicella? Yes Have you had any other infectious diseases? No Rebeca Manuel has been instructed on the following: random urine drug screening policy and an initial urine drug screen has been ordered., She has been counseled regarding avoiding hazards, litter boxes, smoking, drug and alcohol use during Rebeca Manuel has also been informed of the funeral home attendant provider recommendation for first trimester nuchal lucency testing to be performed during her . Rebeca Manuel has also been made aware of the time sensitive nature for this testing to be completed. . The patient now has a gestational age of 12w0d. The patient would be due for this testing prior to 14 weeks gestation which would be on 07/26/24 Appt scheduled on 07/19/24 @ 3pm. Ethnicity Based Genetic Testing has been reviewed and the [employer] information sheet has been provided to the patient in their After Visit Summary. The patient was also advised that genetic testing may not be covered by all insurances. The patients states that they understand this information. The patient states that she has not had the genetic screening for Horizon 14 done in the past during a previous . . The patient has agreed that she does want genetic testing for Horizon 14 The following Labs have been ordered: Obstetric Panel, 1hr Glucose, HIV , Hep B, Panorama and Horizon screening. She is aware that her insurance may or may not cover Panorama and/or Horizon 14 test and discussed pruitt only kim for test(s) - info given today in her after visit summary . She would like to proceed with testing. Electronically signed by: Lauren Ocasio RN 07/13/24 10:35 AM EST Last Filed Vital Signs Vital Sign Reading Time Taken Comments Blood Pressure 112/76 07/26/2024 11:48 AM EST Pulse 103 07/26/2024 11:00 AM EST Temperature - - Respiratory Rate 14 07/26/2024 11:00 AM EST Oxygen Saturation - - Inhaled Oxygen Concentration - - Weight 121 kg (266 lb 9.6 oz) 07/26/2024 11:48 A M EST Height 167.6 cm (5' 6 ) 07/13/2024 10:10 AM EST Body Mass Index 43.03 07/13/2024 10:10 AM EST Plan of Treatment Upcoming Encounters Date Type Department Care Team (Late st Contact Info) Description 09/27/2024 2:00 PM EDT Ancillary Procedure Maternal Medicine [address] [phone] Health Maintenance Due Date Last Done Comments Hepatitis B Vaccines (3 of 3 - 3-dose series) 03/28/1998 01/31/1998, 09/21/1996 DTaP,Tdap,and Td Vaccines (3 - Td or Tdap) 04/12/2010 04/12/2000, 10/09/1999 Pneumococcal Vaccine: Pediatrics (0 to 5 Years) and At-Risk Patients (6 to 64 Years) (2 of 2 - PCV) 03/27/2020 03/27/2019 COVID-19 Vaccine (3 - 2023-2 5 season) 2024 11/13/2021, 07/01/2021 Influenza Vaccine (#1) 2024 04/12/2000 Cholesterol Screening (Lipid Panel) 05/22/2024 Social Influencers of Health Screening 05/22/2024 Depression Screening 07/24/2025 07/24/2024 Cervical Cancer Screening: HPV 07/26/2029 07/26/2024 HIV Screening Completed 07/13/2024, 03/24/2018 Hepatitis C Screening Completed 07/13/2024 , 03/24/2018 HIB Vaccines Aged Out No longer eligi ble based on patient's age to complete this topic HPV Vaccines Aged Out No longer eligi ble based on patient's age to complete this topic Hepatitis A Vaccines Aged Out No long er eligible based on patient's age to complete this topic IPV Vaccines Aged Out No longer eligi ble based on patient's age to complete this topic Meningococcal ACWY Vaccine Aged Out N o longer eligible based on patient's age to complete this topic RSV Immunization Patients Under 20 months Aged Out No longer eligible b ased on patient's age to complete this topic Procedures Procedure Name Priority Date/Time Associated Diagnosis Comments VENIPUNCTURE CHARGE Routine 08/08/2024 2 :49 PM EST care, subsequent in first trimester PANORAMA TEST Routine 3:58 PM EST ASPARTATE AMINOTRANSFERASE Routine 07/26/2024 12:40 PM EST Obesity complicating childbirth ALANINE AMINOTRANSFERASE Routine 025 12:40 PM EST Obesity complicating childbirth CREATININE, SERUM Routine 07/26/2024 12: 40 PM EST Obesity complicating childbirth PROTEIN AND CREATININE WITH RATIO, URINE Routine 07/26/2024 12:40 PM EST Obesity complicating childbirth PAP SMEAR Routine 07/26/2024 11:59 AM EST Screening for cervical cancer HPV WITH REFLEX GENOTYPE Routine 025 11:59 AM EST Screening for cervical cancer CHLAMYDIA TRACHOMATIS AND NEISSERIA GONORRHOEAE PCR Routine 07/26/2024 11:59 AM EST Screening examination for venereal disease HORIZON 14, RANDY Routine 07/25/2024 2: 40 PM EST US OB LESS 14 WKS SINGLE OR FIRST GESTATION Routine 07/19/2024 3:24 PM EST care, subsequent in first trimester US OB LESS 14 WKS NUCHAL MEASUREMENT Routine 07/19/2024 3:24 PM EST care, subsequent in first trimester VENIPUNCTURE CHARGE Routine 07/13/2024 1 2:47 PM EST in first trimester with history of ectopic care, subsequent in first trimester CBC WITH AUTO DIFFERENTIAL Routine 07/13/2024 12:47 PM EST care, subsequent in first trimester VARICELLA ZOSTER ANTIBODY IGG Routine 07/13/2024 12:47 PM EST care, subsequent in first trimester HEPATITIS B SURFACE ANTIGEN WITH CONFIRMATION Routine 07/13/2024 12:47 PM EST care, subsequent in first trimester CBC AND DIFFERENTIAL Routine 07/13/2024 12:47 PM EST care, subsequent in first trimester DRUG ABUSE SCREEN EXPANDED WITH REFLEX CONFIRMATION, URINE Routine 07/13/2024 12:47 PM EST care, subsequent in first trimester HEPATITIS C ANTIBODY Routine 07/13/2024 12:47 PM EST care, subsequent in first trimester HIV 1, 2 ANTIBODY, P24 ANTIGEN WITH REFLEX TO DIFFERENTIATION Routine 07/13/2024 12:47 PM EST care, subsequent in first trimester RUBELLA ANTIBODY IGG Routine 07/13/2024 12:47 PM EST care, subsequent in first trimester TREPONEMA PALLIDUM ANTIBODY WITH REFLEX TO RPR AND PARTICLE AGGLUTINATION Routine 07/13/2024 12:47 PM EST care, subsequent in first trimester TYPE AND SCREEN Routine 07/13/2024 12:47 PM EST care, subsequent in first trimester HEMOGLOBIN A1C Routine 07/13/2024 12:47 PM EST care, subsequent in first trimester VENIPUNCTURE CHARGE Routine 07/13/2024 1 2:47 PM EST in first trimester with history of ectopic CULTURE URINE Routine 07/13/2024 12:47 PM EST care, subsequent in first trimester GTT GESTATIONAL 1 HOUR Routine 12:43 PM EST care, subsequent in first trimester GLUCOSE TOLERANCE TEST, 1H GESTATION Routine 07/13/2024 12:43 PM EST care, subsequent in first trimester from Last 3 Months Results * Venipuncture charge (08/08/2024 2:49 PM EST) Only the most recent of3 resultswithin the time period is included. Extra Tube Hold for add-ons. 08/08/2024 4:02 PM EST [facility]) Comment:Auto resulted. Blood Venous blood specimen / Unknown Venipuncture / Unknown 08/08/2024 2:49 PM EST 08/08/2024 2:49 PM EST Chela Villalba MD LAB BLOOD ORDERABLES Final Result [facility]) ESTHELA, * Panorama test (08/01/2024 3:58 PM EST) Blood Venous blood specimen / Unknown us Chela Villalba MD LAB BLOOD ORDERABLES Final Result * Protein and creatinine with ratio, urine (07/26/2024 12:40 PM EST) Protein, Urine 17 mg/dL LAB CHEMISTRY METHOD 07/26/2024 4:05 PM EST [facility] Prot/Creat, Ur 0.06 <=0.20 mg/mg creat LAB CHEMISTRY METHOD 07/26/2024 4:05 PM [facility] Creatinine, Urine 265.0 mg/dL LAB CHEMISTRY METHOD 07/26/2024 4:05 PM [facility] Urine Urine specimen obtained by clean catch procedure / Unknown Non-blood Collection / Unknown 07/26/2024 12:40 PM EST 07/26/2024 12:40 PM EST us Chela Villalba MD LAB URINE ORDERABLES Final Result Performing Organization Address [facility]/ZIP Ok de Phone Number [facility] [address] [place] [address], [place] [phone] * (ABNORMAL) Creatinine (07/26/2024 12:40 PM EST) Creatinine 0.46(L) 0.50 - 1.10 mg/dL LAB CHEMISTRY METHOD 07/26/2024 4:49 PM EST [facility] eGFR 125 >=60 mL/min/1. 73m2 LAB CHEMISTRY METHOD 07/26/2024 4:49 PM EST [facility] Comment:Calculation based on the??Chronic Kidney Disease Epidemiology Collaboration (CKD-EPI) equation refit??without adjustment for race. Blood Venous blood specimen / Unknown Venipuncture / Unknown 07/26/2024 12:40 PM EST 07/26/2024 12:40 PM EST us Chela Villalba MD LAB BLOOD ORDERABLES Final Result Performing Organization Address [facility]/ZIP Co de Phone Number [facility] [address] [place] [address], [place] [phone] * Alanine aminotransferase (07/26/2024 12:40 PM EST) Pathologist [facility] ALT (SGPT) 26 10 - 60 unit/L LAB CHEMISTRY METHOD 07/26/2024 4:49 PM EST [facility] Blood Venous blood specimen / Unknown Venipuncture / Unknown 07/26/2024 12:40 PM EST 07/26/2024 12:40 PM EST us Chela Villalba MD LAB BLOOD ORDERABLES Final Result Performing Organization Address [facility]/ZIP Co de Phone Number [facility] [address] [place] [address], [place] [phone] * Aspartate aminotransferase (07/26/2024 12:40 PM EST) [facility] AST (SGOT) 13 10 - 42 unit/L LAB CHEMISTRY METHOD 07/26/2024 4:49 PM EST [facility] Blood Venous blood specimen / Unknown Venipuncture / Unknown 07/26/2024 12:40 PM EST 07/26/2024 12:40 PM EST us Chela Villalba MD LAB BLOOD ORDERABLES Final Result Performing Organization Address [facility]/ZIP Co de Phone Number [facility] [address] [place] [address], [place] [phone] * HPV with reflex genotype (07/26/2024 11:59 AM EST) [facility] HPV Negative Negative LAB MICROBIOLOGY METHOD 07/27/2024 2:58 PM EST [facility] Brushing/Spatula Cervix uteri structure / Unknown 07/26/2024 11:59 AM EST 07/27/2024 7:45 AM EST us Chela Villalba MD LAB MOLECULAR DIAGNOSTICS O RDERABLES Final Result [facility] [address] [place] [address], [place] [phone] * Chlamydia trachomatis and Neisseria gonorrhoeae molecular study (07/26/2024 11:59 AM EST) Neisseria gonorrhoeae PCR Negative Negative LAB MOLECULAR DIAGNOSTICS METHOD 07/27/2024 8:35 AM EST [facility] Chlamydia trachomatis PCR Negative Negative LAB MOLECULAR DIAGNOSTICS METHOD 07/27/2024 8:35 AM EST [facility] Swab Cervix uteri structure / Unknown Non-blood Collection / Unknown 07/26/2024 11:59 AM EST 07/26/2024 11:59 AM EST Chela Villalba MD LAB MICROBIOLOGY - GENERAL ORDERABLES Final Result [facility] [address] [place] [address], [place] [phone] * Pap smear (07/26/2024 11:59 AM EST) Interpretation Negative for intraepithelial lesion or malignancy 07/30/2024 4:12 PM [facility] General Categorization Negative 07/30/2024 4:12 PM [facility] Specimen Adequacy Satisfactory for evaluation, endocervical/jarquin sformation zone component absent 07/30/2024 4:12 PM [facility] Pap Methodology Liquid Based Pap Test 07/30/2024 4:12 PM [facility] Disclaimer The Pap test is a screening test which carries an inherent false negative rate. These test results should be correlated with the patient's clinical findings and history. This Pap test was processed using an automated screening system. Technical cytopathology services provided by [facility], at [address] [place] [address] (CLIA # [id number]/Yamilet Sims MD, Strategy Planning Consultant.) 07/30/2024 4:12 PM EST [facility] Console Pap Interpretation Reported 07/30/2024 4:12 PM EST [facility] Brushing/Spatula Cervix uteri structure / Unknown 07/26/2024 11:59 AM EST 07/26/2024 11:59 AM EST Chela Villalba MD LAB CYTOLOGY ORDERABLES Fin al Result [facility] [address] [place] [address], [place] [phone] * Horizon 14 (07/25/2024 2:40 PM EST) Blood Venous blood specimen / Unknown Chela Villalba MD LAB BLOOD ORDERABLES Final Result * US OB Less 14 Wks Nuchal Measurement (07/19/2024 3:24 PM EST) Anatomical Region Laterality Modality Body Ultrasound 07/19/2024 2:57 PM EST Narrative 07/19/2024 5:11 PM EST OBSTETRICS REPORT ?(Signed Final 07/19/2024 05:11 pm) PATIENT INFO: ID #: ? [id number] ? : ??[birth year] (38 yrs)(Alia) Name: ? REBECA Koenig KALEB ? Visit Date: 07/19/2024 02:57 pm PERFORMED BY: Attending: ?Flaquita Coppola MD Performed By: ? Nicholas Cisneros RDMS Referred By: ?CHELA VILLALBA Location: ? [facility]) SERVICE(S) PROVIDED: US Nuchal Translucency ?09036 < 14 weeks Abdominal Ultrasound ?69621 INDICATIONS: Advanced Maternal Age in multigravida, first ?? O09.521 trimester Obesity complicating , 1st ?O99.211 trimester Encounter for screening for nuchal ?? Z36.82 translucency Encounter for screening for ?Z36.3 malformations 12 weeks gestation of ?Z3A.12 TECHNIQUE/SCAN QUALITY: Technique: ?? Transabdominal Scan ? Satisfactory Quality: OB HISTORY: : ?3 ? Term: ?? 1 Ectopic: ?1 ?Living: ??1 VITAL SIGNS: Weight (lb) ?? Height ?BMI 267 ? 5'6 ?43.09 EVALUATION: Number Of Fetuses: ? 1 Preg. Location: ?Intrauterine Heart Rate(bpm): ?? 165 Cardiac Activity: ?Observed Presentation: ?Variable Placenta Location: ?Posterior Appearance: ?Grade 0 Cord Insertion: ?Visualized BIOMETRY: GESTATIONAL AGE: LMP: ? 12w 6d ?Date: ??04/20/24 ? TAURUS: ?? 01/25/25 Best: ?12w 6d ?? Det. By: ??LMP ??(04/20/24) ?TAURUS: ?? 01/25/25 1ST TRIMESTER GENETIC SONOGRAM SCREENING: CRL: ? 66.27 ??mm ? G.Age: ?? 12w 6d ? TAURUS: ?? 01/25/25 Nuc Trans: ? 2.0 ??mm STANDARD ANATOMY: Cranium: ?Normal appearance Choroid Plexus: ? Normal appearance Stomach: ?Normal appearance Abdominal Wall: ? Normal appearance Cord Vessels: ? Normal 3-Vessel Cord Bladder: ?Normal appearance Upper Extremities: ?Seen Lower Extremities: ?Seen CERVIX UTERUS ADNEXA: Uterus Size(cm) ?11.69 ?? x ?? 8.89 ?? x ??7.9 Uterus Vol(ml): ?429.87 Anteverted, anteflexed. Myometrium homogeneous, no lesions identified. Right Ovary Surgically absent. Left Ovary Size(cm) ? 2.97 ?? x ?? 2.86 ?? x ??2.66 ?Vol(ml): 11.83 Normal in size and appearance. It is found between the uterus and the pelvic sidewall. Cul De Sac There is no free fluid in the cul de sac. Adnexa Both adnexae appear unremarkable. COMMENTS: Ms. Manuel is being seen for first trimester screening for aneuploidy. - Her medical history is significant for class III obesity, anxiety and depression. Her obstetrical history is significant for one term delivery and one ectopic. She had a right oophorectomy. - She states she had cell free DNA screening. There are no results available in [facility] at the time of this ultrasound. - Ultrasound findings: The nuchal translucency measurement is < 95th% for the gestational age. - biometry is consistent with dates. ??Assessment of the anatomy is appropriate for the gestational age. There are no ultrasound findings to suggest aneuploidy. - Plan: 1. A detailed ultrasound (AMA, BMI >40) and cervical length screening for risk of have been scheduled. - 2. The patient should be offered second trimester MSAFP only, to assess for risk of an open neural tube defect. Flaquita Coppola MD Electronically Signed Final Report ?? 07/19/2024 05:11 pm Procedure Note Flaquita Coppola MD - 07/19/2024 OBSTETRICS REPORT (Signed Final 07/19/2024 05:11 pm) PATIENT INFO: ID #: [id number] : [birth year] (38 yrs)(F) Name: REBECA MANUEL Visit Date: 07/19/2024 02:57 pm PERFORMED BY: Attending: Flaquita Coppola MD Performed By: Nicholas Cisneros RDMS Referred By: CHELA VILLALBA Location: [facility]) SERVICE(S) PROVIDED: US Nuchal Translucency 27363 US < 14 weeks Abdominal Ultrasound 44623 INDICATIONS: Advanced Maternal Age in multigravida, first O09.521 trimester Obesity complicating , 1st O99.211 trimester Encounter for screening for nuchal Z36.82 translucency Encounter for screening for Z36.3 malformations 12 weeks gestation of Z3A.12 TECHNIQUE/SCAN QUALITY: Technique: Transabdominal Scan Satisfactory Quality: OB HISTORY: : 3 Term: 1 Ectopic: 1 Livin VITAL SIGNS: Weight (lb) Height BMI 267 5'6 43.09 EVALUATION: Number Of Fetuses: 1 Preg. Location: Intrauterine Heart Rate(bpm): 165 Cardiac Activity: Observed Presentation: Variable Placenta Location: Posterior Appearance: Grade 0 Cord Insertion: Visualized BIOMETRY: GESTATIONAL AGE: LMP: 12w 6d Date: 04/20/24 TAURUS: 01/25/25 Best: 12w 6d Det. By: LMP (04/20/24) TAURUS: 01/25/25 1ST TRIMESTER GENETIC SONOGRAM SCREENING: CRL: 66.27 mm G.Age: 12w 6d TAURUS: 01/25/25 Nuc Trans: 2.0 mm STANDARD ANATOMY: Cranium: Normal appearance Choroid Plexus: Normal appearance Stomach: Normal appearance Abdominal Wall: Normal appearance Cord Vessels: Normal 3-Vessel Cord Bladder: Normal appearance Upper Extremities: Seen Lower Extremities: Seen CERVIX UTERUS ADNEXA: Uterus Size(cm) 11.69 x 8.89 x 7.9 Uterus Vol(ml): 429.87 Anteverted, anteflexed. Myometrium homogeneous, no lesions identified. Right Ovary Surgically absent. Left Ovary Size(cm) 2.97 x 2.86 x 2.66 Vol(ml): 11.83 Normal in size and appearance. It is found between the uterus and the pelvic sidewall. Cul De Sac There is no free fluid in the cul de sac. Adnexa Both adnexae appear unremarkable. COMMENTS: Ms. Manuel is being seen for first trimester screening for aneuploidy. - Her medical history is significant for class III obesity, anxiety and depression. Her obstetrical history is significant for one term delivery and one ectopic. She had a right oophorectomy. - She states she had cell free DNA screening. There are no results available in [facility] at the time of this ultrasound. - Ultrasound findings: The nuchal translucency measurement is < 95th% for the gestational age. - biometry is consistent with dates. Assessment of the anatomy is appropriate for the gestational age. There are no ultrasound findings to suggest aneuploidy. - Plan: 1. A detailed ultrasound (AMA, BMI >40) and cervical length screening for risk of have been scheduled. - 2. The patient should be offered second trimester MSAFP only, to assess for risk of an open neural tube defect. Flaquita Coppola MD Electronically Signed Final Report 07/19/2024 05:11 pm us Chela Villalba MD IMG OB US PROCEDURES Final Result * US OB Less 14 Wks Single or First Gestation (07/19/2024 3:24 PM EST) Anatomical Region Laterality Modality Body Ultrasound 07/19/2024 2:57 PM EST Narrative 07/19/2024 5:11 PM EST OBSTETRICS REPORT ?(Signed Final 07/19/2024 05:11 pm) PATIENT INFO: ID #: ? [id number] ? : ??[birth year] (38 yrs)(F) Name: ? REBECA MANUEL ? Visit Date: 07/19/2024 02:57 pm PERFORMED BY: Attending: ?Flaquita Coppola MD Performed By: ? Nicholas Cisneros RDMS Referred By: ?CHELA VILLALBA Location: ? [facility] SERVICE(S) PROVIDED: US Nuchal Translucency ?88144 US < 14 weeks Abdominal Ultrasound ?13521 INDICATIONS: Advanced Maternal Age in multigravida, first ?? O09.521 trimester Obesity complicating , 1st ?O99.211 trimester Encounter for screening for nuchal ?? Z36.82 translucency Encounter for screening for ?Z36.3 malformations 12 weeks gestation of ?Z3A.12 TECHNIQUE/SCAN QUALITY: Technique: ?? Transabdominal Scan ? Satisfactory Quality: OB HISTORY: : ?3 ? Term: ?? 1 Ectopic: ?1 ?Living: ??1 VITAL SIGNS: Weight (lb) ?? Height ?BMI 267 ? 5'6 ?43.09 EVALUATION: Number Of Fetuses: ? 1 Preg. Location: ?Intrauterine Heart Rate(bpm): ?? 165 Cardiac Activity: ?Observed Presentation: ?Variable Placenta Location: ?Posterior Appearance: ?Grade 0 Cord Insertion: ?Visualized BIOMETRY: GESTATIONAL AGE: LMP: ? 12w 6d ?Date: ??04/20/24 ? TAURUS: ?? 01/25/25 Best: ?12w 6d ?? Det. By: ??LMP ??(04/20/24) ?TAURUS: ?? 01/25/25 1ST TRIMESTER GENETIC SONOGRAM SCREENING: CRL: ? 66.27 ??mm ? G.Age: ?? 12w 6d ? TAURUS: ?? 01/25/25 Nuc Trans: ? 2.0 ??mm STANDARD ANATOMY: Cranium: ?Normal appearance Choroid Plexus: ? Normal appearance Stomach: ?Normal appearance Abdominal Wall: ? Normal appearance Cord Vessels: ? Normal 3-Vessel Cord Bladder: ?Normal appearance Upper Extremities: ?Seen Lower Extremities: ?Seen CERVIX UTERUS ADNEXA: Uterus Size(cm) ?11.69 ?? x ?? 8.89 ?? x ??7.9 Uterus Vol(ml): ?429.87 Anteverted, anteflexed. Myometrium homogeneous, no lesions identified. Right Ovary Surgically absent. Left Ovary Size(cm) ? 2.97 ?? x ?? 2.86 ?? x ??2.66 ?Vol(ml): 11.83 Normal in size and appearance. It is found between the uterus and the pelvic sidewall. Cul De Sac There is no free fluid in the cul de sac. Adnexa Both adnexae appear unremarkable. COMMENTS: Ms. Manuel is being seen for first trimester screening for aneuploidy. - Her medical history is significant for class III obesity, anxiety and depression. Her obstetrical history is significant for one term delivery and one ectopic. She had a right oophorectomy. - She states she had cell free DNA screening. There are no results available in [facility] at the time of this ultrasound. - Ultrasound findings: The nuchal translucency measurement is < 95th% for the gestational age. - biometry is consistent with dates. ??Assessment of the anatomy is appropriate for the gestational age. There are no ultrasound findings to suggest aneuploidy. - Plan: 1. A detailed ultrasound (AMA, BMI >40) and cervical length screening for risk of have been scheduled. - 2. The patient should be offered second trimester MSAFP only, to assess for risk of an open neural tube defect. Flaquita Coppola MD Electronically Signed Final Report ?? 07/19/2024 05:11 pm Procedure Note Flaquita Coppola MD - 07/19/2024 OBSTETRICS REPORT (Signed Final 07/19/2024 05:11 pm) PATIENT INFO: ID #: [id number] : [birth year] (38 yrs)(F) Name: REBECA MANUEL Visit Date: 07/19/2024 02:57 pm PERFORMED BY: Attending: Flaquita Coppola MD Performed By: Nicholas Cisneros RDMS Referred By: CHELA VILLALBA Location: [facility]) SERVICE(S) PROVIDED: US Nuchal Translucency 78692 US < 14 weeks Abdominal Ultrasound 22078 INDICATIONS: Advanced Maternal Age in multigravida, first O09.521 trimester Obesity complicating , 1st O99.211 trimester Encounter for screening for nuchal Z36.82 translucency Encounter for screening for Z36.3 malformations 12 weeks gestation of Z3A.12 TECHNIQUE/SCAN QUALITY: Technique: Transabdominal Scan Satisfactory Quality: OB HISTORY: : 3 Term: 1 Ectopic: 1 Livin VITAL SIGNS: Weight (lb) Height BMI 267 5'6 43.09 EVALUATION: Number Of Fetuses: 1 Preg. Location: Intrauterine Heart Rate(bpm): 165 Cardiac Activity: Observed Presentation: Variable Placenta Location: Posterior Appearance: Grade 0 Cord Insertion: Visualized BIOMETRY: GESTATIONAL AGE: LMP: 12w 6d Date: 04/20/24 TAURUS: 01/25/25 Best: 12w 6d Det. By: LMP (04/20/24) TAURUS: 01/25/25 1ST TRIMESTER GENETIC SONOGRAM SCREENING: CRL: 66.27 mm G.Age: 12w 6d TAURUS: 01/25/25 Nuc Trans: 2.0 mm STANDARD ANATOMY: Cranium: Normal appearance Choroid Plexus: Normal appearance Stomach: Normal appearance Abdominal Wall: Normal appearance Cord Vessels: Normal 3-Vessel Cord Bladder: Normal appearance Upper Extremities: Seen Lower Extremities: Seen CERVIX UTERUS ADNEXA: Uterus Size(cm) 11.69 x 8.89 x 7.9 Uterus Vol(ml): 429.87 Anteverted, anteflexed. Myometrium homogeneous, no lesions identified. Right Ovary Surgically absent. Left Ovary Size(cm) 2.97 x 2.86 x 2.66 Vol(ml): 11.83 Normal in size and appearance. It is found between the uterus and the pelvic sidewall. Cul De Sac There is no free fluid in the cul de sac. Adnexa Both adnexae appear unremarkable. COMMENTS: Ms. Manuel is being seen for first trimester screening for aneuploidy. - Her medical history is significant for class III obesity, anxiety and depression. Her obstetrical history is significant for one term delivery and one ectopic. She had a right oophorectomy. - She states she had cell free DNA screening. There are no results available in [facility] at the time of this ultrasound. - Ultrasound findings: The nuchal translucency measurement is < 95th% for the gestational age. - biometry is consistent with dates. Assessment of the anatomy is appropriate for the gestational age. There are no ultrasound findings to suggest aneuploidy. - Plan: 1. A detailed ultrasound (AMA, BMI >40) and cervical length screening for risk of have been scheduled. - 2. The patient should be offered second trimester MSAFP only, to assess for risk of an open neural tube defect. Flaquita Coppola MD Electronically Signed Final Report 07/19/2024 05:11 pm Chela iVllalba MD IMG OB US PROCEDURES Final Result * Hepatitis C antibody (07/13/2024 12:47 PM EST) Pathologist [facility] Hepatitis C Antibody Negative Negative LAB CHEMISTRY METHOD 07/13/2024 5:58 PM EST [facility] Blood Venous blood specimen / Unknown Venipuncture / Unknown 07/13/2024 12:47 PM EST 07/13/2024 12:47 PM EST Chela Villalba MD LAB BLOOD ORDERABLES Final Result [facility] [address] [place] [address], [place] [phone] * HIV 1,2 antibody, p24 antigen with reflex to differentiation (07/13/2024 12:47 PM EST) Pathologist [facility] HIV Combo AB/AG Negative Negative LAB CHEMISTRY METHOD 07/13/2024 5:59 PM EST [facility] Blood Venous blood specimen / Unknown Venipuncture / Unknown 07/13/2024 12:47 PM EST 07/13/2024 12:[address] [facility] - 07/13/2024 5:59 PM EST This assay is a 4th generation assay allowing for earlier detection of HIV infection by detecting the presence of the HIV-1 p24 antigen as well as the traditional antibodies to HIV type 1 (including group O) and type 2. ??Use of a 4th generation assay is the current CDC recommendation for HIV screening. us Chela Villalba MD LAB BLOOD ORDERABLES Final Result Performing Organization Address [facility] de Phone Number [facility] [address] [place] [address], [place] [phone] * Hepatitis B surface antigen with reflex to confirmation (07/13/2024 12:47 PM EST) [facility] Hepatitis B Surface Ag Negative Negative LAB CHEMISTRY METHOD 07/13/2024 5:30 PM EST [facility] Blood Venous blood specimen / Unknown Venipuncture / Unknown 07/13/2024 12:47 PM EST 07/13/2024 12:[address] [facility] - 07/13/2024 5:30 PM EST Over the counter supplements containing high doses of biotin may interfere with this assay. ??If interference is suspected, patients shoud be retested after refraining from biotin supplements for 72 hours. us Chela Villalba MD LAB BLOOD ORDERABLES Final Result Performing Organization Address [facility]/ZIP Co de Phone Number [facility] [address] [place] [address], [place] [phone] * Treponema pallidum antibody with reflex to RPR and particle agglutination (07/13/2024 12:47 PM EST) T. Pallidum Antibodies Negative Negative LAB CHEMISTRY METHOD 07/13/2024 5:30 PM [facility] Blood Venous blood specimen / Unknown Venipuncture / Unknown 07/13/2024 12:47 PM EST 07/13/2024 12:47 PM EST Chela Villalba MD LAB BLOOD ORDERABLES Final Result [facility] [address] [place] [address], [place] [phone] * Drug abuse screen expanded with reflex confirmation, urine (07/13/2024 12:47 PM EST) [facility] Amphetamine Screen, Ur Negative Negative LAB CHEMISTRY METHOD 07/13/2024 9:37 PM [facility] Comment:Certain OTC medicati ons containing ephedrine, phenylephrine, pseudoephedrine and phenylpropanolamine can cause false positive results. Barbiturate Screen, Ur Negative Negative LAB CHEMISTRY METHOD 07/13/2024 9:37 PM [facility] Benzodiazepine Screen, Ur Negative Negative LAB CHEMISTRY METHOD 07/13/2024 9:37 PM [facility] Cocaine Screen, Ur Negative Negative LAB CHEMISTRY METHOD 07/13/2024 9:37 PM EST [facility] Opiate Screen, Ur Negative Negative LAB CHEMISTRY METHOD 07/13/2024 9:37 PM [facility] Cannabinoid (THC) Screen, Ur Negative Negative LAB CHEMISTRY METHOD 07/13/2024 9:37 PM [facility] Comment:Specimens from patie nts taking pantoprazole sodium (Protonix) have been shown to produce false positive results. Fentanyl, Ur Negative Negative LAB CHEMISTRY METHOD 07/13/2024 9:37 PM EST [facility] Oxycodone Screen, Ur Negative Negative LAB CHEMISTRY METHOD 07/13/2024 9:37 PM EST [facility] Urine Urine specimen obtained by clean catch procedure / Unknown Non-blood Collection / Unknown 07/13/2024 12:47 PM EST 07/13/2024 12:47 PM EST Narrative [facility] - 07/13/2024 9:37 PM EST Assay cutoffs: Amphetamines ? 1000 ng/mL Barbiturates ?200 ng/mL Benzodiazepines ?? 200 ng/mL Cocaine ? 300 ng/mL Fentanyl ?1 ng/mL Opiates ? 300 ng/mL Oxycodone ? 100 ng/mL THC ?50 ng/mL Semi-quantitative assay for screening purposes only. Unconfirmed screening result should not be used for non-medical purposes. *POSITIVE RESULTS ARE AUTOMATICALLY SENT FOR ALTERNATE METHOD CONFIRMATION* us Chela Villalba MD LAB URINE ORDERABLES Final Result [facility] [address] [place] [address], * (ABNORMAL) CBC auto differential (07/13/2024 12:47 PM EST) WBC 8.5 4.8 - 10.8 K/mcL LAB HEMETOLOGY METHOD 07/13/2024 3:25 PM EST [facility] RBC 4.60 3.80 - 4.80 M/mcL LAB HEMETOLOGY METHOD 07/13/2024 3:25 PM EST [facility] Hemoglobin 11.9 11.5 - 16.0 g/dL LAB HEMETOLOGY METHOD 07/13/2024 3:25 PM EST [facility] Hematocrit 38.1 35.0 - 47.0 % LAB HEMETOLOGY METHOD 07/13/2024 3:25 PM [facility] MCV 83.2 79.0 - 98.0 FL LAB HEMETOLOGY METHOD 07/13/2024 3:25 PM [facility] MCH 26.0(L) 27.0 - 32.0 pcg LAB HEMETOLOGY METHOD 07/13/2024 3:25 PM [facility] MCHC 31.2(L) 32.0 - 37.0 g/dL LAB HEMETOLOGY METHOD 07/13/2024 3:25 PM [facility] RDW 16.0(H) 11.0 - 15.0 % LAB HEMETOLOGY METHOD 07/13/2024 3:25 PM [facility] Platelets 202 130 - 400 K/mcL LAB HEMETOLOGY METHOD 07/13/2024 3:25 PM [facility] MPV 11.9(H) 7.0 - 11.0 FL LAB HEMETOLOGY METHOD 07/13/2024 3:25 PM [facility] NRBC 0.0 <1.0 % LAB HEMETOLOGY METHOD 07/13/2024 3:25 PM [facility] NRBC Absolute 0.00 <0.10 K/mcL LAB HEMETOLOGY METHOD 07/13/2024 3:25 PM [facility] Neutrophils Relative 63.0 % LAB HEMETOLOGY METHOD 07/13/2024 3:25 PM [facility] Lymphocytes Relative 26.0 % LAB HEMETOLOGY METHOD 07/13/2024 3:25 PM [facility] Monocytes Relative 5.9 % LAB HEMETOLOGY METHOD 07/13/2024 3:25 PM [facility] Eosinophils Relative 4.4 % LAB HEMETOLOGY METHOD 07/13/2024 3:25 PM [facility] Basophils Relative 0.1 % LAB HEMETOLOGY METHOD 07/13/2024 3:25 PM EST [facility] Immature Granulocytes Relative 0.6 % LAB HEMETOLOGY METHOD 07/13/2024 3:25 PM EST [facility] Neutrophils Absolute 5.35 1.50 - 7.00 K/[facility] LAB HEMETOLOGY METHOD 07/13/2024 3:25 PM EST [facility] Lymphocytes Absolute 2.21 1.00 - 5.00 K/[facility] LAB HEMETOLOGY METHOD 07/13/2024 3:25 PM EST [facility] Monocytes Absolute 0.50 0.20 - 1.00 K/[facility] LAB HEMETOLOGY METHOD 07/13/2024 3:25 PM EST [facility] Eosinophils Absolute 0.37 0.00 - 0.50 K/[facility] LAB HEMETOLOGY METHOD 07/13/2024 3:25 PM EST [facility] Basophils Absolute 0.01 0.00 - 0.20 K/mcL LAB HEMETOLOGY METHOD 07/13/2024 3:25 PM EST [facility] Immature Granulocytes Absolute 0.05(H) 0.00 - 0.03 K/mcL LAB HEMETOLOGY METHOD 07/13/2024 3:25 PM EST [facility] Blood Venous blood specimen / Unknown Venipuncture / Unknown 07/13/2024 12:47 PM EST 07/13/2024 12:47 PM EST us Chela Villalba MD LAB BLOOD ORDERABLES Final Result [facility] [address] [place] [address], * Rubella antibody IgG (07/13/2024 12:47 PM EST) Rubella IgG Quant 15.8 >=10.0 I Unit/mL LAB CHEMISTRY METHOD 07/13/2024 5:36 PM EST [facility] Rubella IgG Antibody Interp Positive Positive LAB CHEMISTRY METHOD 07/13/2024 5:36 PM EST [facility] Blood Venous blood specimen / Unknown Venipuncture / Unknown 07/13/2024 12:47 PM EST 07/13/2024 12:47 PM EST us Chela Villalba MD LAB BLOOD ORDERABLES Final Result Performing Organization Address [facility]/ZIP Co de Phone Number [facility] [address] [place] [address], [place] [phone] * Type and screen (07/13/2024 12:47 PM EST) ABO Group A 07/13/2024 5:29 PM EST [facility] Rh Type Positive 07/13/2024 5:29 PM EST [facility] Antibody Screen Negative 07/13/2024 5:29 PM EST [facility] Blood Venous blood specimen / Unknown Venipuncture / Unknown 07/13/2024 12:47 PM EST 07/13/2024 12:47 PM EST us Chela Villalba MD LAB BLOOD BANK TEST ORDERAB LES Final Result Performing Organization Address [facility]/ZIP Co de Phone Number [facility] [address] [place] [address], [place] [phone] * Culture urine (07/13/2024 12:47 PM EST) Culture, Urine See comment 07/15/2024 1:48 PM EST [facility] Urine Urine specimen obtained by clean catch procedure / Unknown Non-blood Collection / Unknown 07/13/2024 12:47 PM EST 07/13/2024 12:47 PM EST Narrative [facility] - 07/15/2024 1:48 PM EST COLONY COUNT: 10,000-49,000 CFU/ML Mixed growth of urogenital lester with Beta Strep group B. The presence of Beta Strep group B may have clinical significance in women. Suggest appropriate recollection if symptoms suggest a urinary tract infection. us Chela Villalba MD LAB MICROBIOLOGY - GENERAL ORDERABLES Final Result Performing Organization Address [facility] de Phone Number [facility] [address] [place] [address], * Varicella zoster antibody IgG (07/13/2024 12:47 PM EST) Varicella IgG Positive Positive LAB CHEMISTRY METHOD 07/14/2024 10:25 AM EST [facility] Varicella Zoster IgG 5.80 >=1.00 S/CO LAB CHEMISTRY METHOD 07/14/2024 10:25 AM EST [facility] Blood Venous blood specimen / Unknown Venipuncture / Unknown 07/13/2024 12:47 PM EST 07/13/2024 12:47 PM EST Narrative [facility] - 07/14/2024 10:25 AM EST Interpretation >= 1.00 S/CO is considered to be consistent with Immunity us Chela Villalba MD LAB BLOOD ORDERABLES Final Result Performing Organization Address [facility] de Phone Number [facility] [address] [place] [address], * Hemoglobin A1c (07/13/2024 12:47 PM EST) Pathologist [facility] Hemoglobin A1C 5.7 <6.5 % LAB CHEMISTRY METHOD 07/13/2024 10:11 PM EST [facility] Mean Bld Glu Estim. 117 mg/dL LAB CHEMISTRY METHOD 07/13/2024 10:11 PM EST [facility] Blood Venous blood specimen / Unknown Venipuncture / Unknown 07/13/2024 12:47 PM EST 07/13/2024 12:47 PM EST Chela Villalba MD LAB BLOOD ORDERABLES Final Result Performing Organization Address City/[facility]/ZIP Co de Phone Number [facility] [address] [place] [address], [place] [phone] * GTT gestational 1 hour (07/13/2024 12:43 PM EST) Glucose, 1 HR Gestational 118 See Comment mg/dL LAB CHEMISTRY METHOD 07/13/2024 4:32 PM EST [facility] Blood Venous blood specimen / Unknown Venipuncture / Unknown 07/13/2024 12:43 PM EST 07/13/2024 12:47 PM EST Narrative [facility] - 07/13/2024 4:32 PM EST Gestational Diabetes Challenge Reference Range: 1 hour Glucose <140 mg/dL Chela Villalba MD LAB BLOOD ORDERABLES Final Result Performing Organization Address [facility]/ZIP Co de Phone Number [facility] [address] [place] [address], [place] [phone] from Last 3 Months Insurance [facility] Member Subscriber Plan / Payer (Ef fective 2015-Present) Name:Rebeca Manuel Relation to Subscriber:Self Name:Rebeca Manuel Payer ID:[id number] Group ID:[id number] Type:Not on file Address: [facility] [place] [address] Care Teams Suction Plate Roller Hand Relationship Specialty Start Date End Date Lisette Poon MD [address] [place] [address] PCP - General Internal Medicine 06/14/24
--- OUTSIDE RECORDS SUMMARY | 2024-08-08 17:12 | XMS_ITS | Encounter Summary ---
Author Organization [facility] Address [address] [place], [place] [id number] Phone Care Team Providers Care Engine Test Cell Technician Name Role Phone Unavailable Primary Care Provider Unavailabl e Encounter Details Date Type Department Care Team (Late st Contact Info) Description 12/20/2011 Documentation [facility] Family Medicine [address] [place] [address] Family Medicine, Physician [facility] [place] [address] Social History Tobacco Use Types Packs/Day Years Used Date Smoking Tobacco: Never Assessed Comments Unknown Sex and Gender Information Value Date Recorded Sex Assigned at Not on file Legal Sex Female 3:28 PM EDT Gender Identity Not on file Sexual Orientation Not on file documented as of this encounter Plan of Treatment Not on file documented as of this encounter Visit Diagnoses Not on filedocumented in this encounter
--- OUTSIDE RECORDS SUMMARY | 2024-08-08 17:12 | XMS_ITS | Clinical Summary ---
Author Organization [facility] Address [address] [place] [phone] Phone Care Team Providers Care Button Cutting Machine Operator Name Role Phone Unavailable Primary Care Provider Unavailabl e Immunizations Immunization Administration Dates Next Due Hep B, ped/adol 01/31/1998,09/21/1996 Influenza Split 04/12/2000 Influenza, injectable, trivalent 04/12/2000 MMR 09/21/1996 Td (adult) (MBL), 2 Lf tetanus toxoid, PF, adsor bed 04/12/2000,10/09/1999 Social History Tobacco Use Types Packs/Day Years Used Date Smoking Tobacco: Never Assessed Comments Unknown Sex and Gender Information Value Date Recorded Sex Assigned at Not on file Legal Sex Female 3:28 PM EDT Gender Identity Not on file Sexual Orientation Not on file Plan of Treatment Health Maintenance Due Date Last Done Comments Varicella Vaccines (1 of 2 - 13+ 2-dose series) 1997 Hepatitis B Vaccines (3 of 3 - 3-dose series) 03/28/1998 01/31/1998, 09/21/1996 DTaP,Tdap,and Td Vaccines (3 - Tdap) 04/13/2000 04/12/2000, 10/09/1999 Influenza Vaccines (#1) 2024 04/12/20 00, 04/12/2000 COVID-19 Vaccine (2023-2 5 season) 2024 MMR Vaccines Completed 09/21/1996 HIB Vaccines Aged Out No longer eligi [...] on patient's age to complete this topic Men B Vaccine Aged Out No longer elig ible based on patient's age to complete this topic Meningococcal Vaccine Aged Out No adolfo merle eligible based on patient's age to complete this topic Pneumococcal Vaccine Aged Out No long er eligible based on patient's age to complete this topic
--- OUTSIDE RECORDS SUMMARY | 2024-08-08 17:12 | XMS_ITS | Encounter Summary ---
Author Organization [facility] Address [address] [place] [address] Care Team Providers Care Mine Superintendent Name Role Phone Lisette Poon MD Primary Care Provider [phone] Encounter Details Date Type Department Care Team ([facility] Contact Info) Description 07/26/2024 12:30 PM EST Lab Draw Station - [address] Obesity complicating childbirth Social History Tobacco Use Types Packs/Day Years Used Date Smoking Tobacco: Every Day Cigarettes Smokeless Tobacco: Never Comments:Smokes 1 cigarette a day Alcohol Use [...] file Not on file Not on file documented as of this encounter Progress Notes * Chela Villalba MD - 07/26/2024 12:30 PM EST Normal documented in this encounter Plan of Treatment Upcoming Encounters Date Type Department Care Team ([facility] Contact Info) Description 09/27/2024 2:00 PM EDT Ancillary Procedure Maternal Medicine - [address] [phone] documented as of this encounter Procedures Procedure Name Priority Date/Time Associated Diagnosis Comments PROTEIN AND CREATININE WITH RATIO, URINE Routine 07/26/2024 12:40 PM EST Obesity complicating childbirth CREATININE, SERUM Routine 07/26/2024 12: 40 PM EST Obesity complicating childbirth ALANINE AMINOTRANSFERASE Routine 025 12:40 PM EST Obesity complicating childbirth ASPARTATE AMINOTRANSFERASE Routine 07/26/2024 12:40 PM EST Obesity complicating childbirth documented in this encounter Results * Aspartate aminotransferase (07/26/2024 12:40 PM EST) AST (SGOT) 13 10 - 42 unit/L LAB CHEMISTRY METHOD 07/26/2024 4:49 PM EST [facility] Blood Venous blood specimen / Unknown Venipuncture / Unknown 07/26/2024 12:40 PM EST 07/26/2024 12:40 PM EST us Chela Villalba MD LAB BLOOD ORDERABLES Final Result Performing Organization Address City/[facility]/ZIP Co de Phone Number [facility] [address] [place] [address], [place] [phone] * Alanine aminotransferase (07/26/2024 12:40 PM EST) ALT (SGPT) 26 10 - 60 unit/L LAB CHEMISTRY METHOD 07/26/2024 4:49 PM EST [facility] Blood Venous blood specimen / Unknown Venipuncture / Unknown 07/26/2024 12:40 PM EST 07/26/2024 12:40 PM EST us Chela Villalba MD LAB BLOOD ORDERABLES Final Result Performing Organization Address City/[facility]/ZIP Co de Phone Number [facility] [address] [place] [address], [place] [phone] * (ABNORMAL) Creatinine (07/26/2024 12:40 PM EST) Creatinine 0.46(L) 0.50 - 1.10 mg/dL LAB CHEMISTRY METHOD 07/26/2024 4:49 PM EST [facility] eGFR 125 >=60 mL/min/1. 73m2 LAB CHEMISTRY METHOD 07/26/2024 4:49 PM [facility] Comment:Calculation based on the??Chronic Kidney Disease Epidemiology Collaboration (CKD-EPI) equation refit??without adjustment for race. Blood Venous blood specimen / Unknown Venipuncture / Unknown 07/26/2024 12:40 PM EST 07/26/2024 12:40 PM EST us Chela Villalba MD LAB BLOOD ORDERABLES Final Result Performing Organization Address City/[facility]/ZIP Co de Phone Number [facility] [address] [place] [address], [place] [phone] * Protein and creatinine with ratio, urine (07/26/2024 12:40 PM EST) Protein, Urine 17 mg/dL LAB CHEMISTRY METHOD 07/26/2024 4:05 PM [facility] Prot/Creat, Ur 0.06 <=0.20 mg/mg creat LAB CHEMISTRY METHOD 07/26/2024 4:05 PM [facility] Creatinine, Urine 265.0 mg/dL LAB CHEMISTRY METHOD 07/26/2024 4:05 PM [facility] Urine Urine specimen obtained by clean catch procedure / Unknown Non-blood Collection / Unknown 07/26/2024 12:40 PM EST 07/26/2024 12:40 PM EST us Chela Villalba MD LAB URINE ORDERABLES Final Result Performing Organization Address City/[facility]/ZIP Co de Phone Number [facility] [address] [place] [address], [place] [phone] documented in this encounter Visit Diagnoses Diagnosis Obesity complicating childbirth documented in this encounter Additional Health Concerns Assessment Noted Time PHQ-9 Depression Total Score: 6 07/24/19 25 11:30 AM EST documented as of this encounter Care Teams Mine Superintendent Relationship Specialty Start Date End Date Lisette Poon MD [address] [place] [address] PCP - General Internal Medicine 06/14/24 documented as of this encounter
--- OUTSIDE RECORDS SUMMARY | 2024-08-08 17:12 | XMS_ITS | Encounter Summary ---
Author Organization [facility] [place] [address] Care Team Providers Care Internal Controls Manager Name Role Phone Lisette Poon MD Primary Care Provider [phone] Reason for Referral * Consultation (Routine) - Pending Review Specialty Diagnoses / Procedures Referred By Shirley michael Referred To Contact Physical Therapy Diagnoses Sciatica of right side Chela Villalba MD [place], [place] Phone: tel: fax: Referral ID Status Reason Start Date Expiration Date Visits Requested Visits Authorized [id number] Pending Review Specialty Services Required 07/26/2024 07/26/2025 1 1 Reason for Visit * Reason Comments Encounter Details Date Type Department Care Team ([facility] Contact Info) Description 07/26/2024 11:30 AM EST Initial Obstetrics and Gynecology [address] [phone] Chela Villalba MD [address] [place], [place] GA: [id number] Social History Tobacco Use Types Packs/Day Years [...] on file documented as of this encounter Last Filed Vital Signs Vital Sign Reading Time Taken Comments Blood Pressure 112/76 07/26/2024 11:48 AM EST Pulse 103 07/26/2024 11:00 AM EST Temperature - - Respiratory Rate 14 07/26/2024 11:00 AM EST Oxygen Saturation - - Inhaled Oxygen Concentration - - Weight 121 kg (266 lb 9.6 oz) 07/26/2024 11:48 A M EST Height - - Body Mass Index 43.03 07/13/2024 10:10 AM EST documented in this encounter Ordered Prescriptions Prescription Sig Dispense Quantity Refills Last Filled Start Date End Date famotidine (PEPCID) 20 mg tablet Take 1 tablet (20 mg total) by mouth 2 (two) times a day. 180 tablet 3 07/26/2024 aspirin 81 mg EC tablet Take 2 tablets (162 mg total) by mouth 1 (one) time each day. 60 each 11 07/26/2024 documented in this encounter Progress Notes * Chela Villalba MD - 07/26/2024 12:25 PM ESTAssociated Problem(s): Extrinsic asthma without complication I recommended Rebeca call her PCP office today to get an appt within the next week to be seen. She was counseled that asthma can significantly worse in . She should continue using her rescue inhaler prn and seek attention in the ED if her SOB worsens. * Chela Villalba MD - 07/26/2024 12:23 PM ESTAssociated Problem(s): Multigravida of advanced maternal age in first trimester ASA ordered, NIPT pending * Chela Villalba MD - 07/26/2024 12:18 PM ESTAssociated Problem(s): Obesity complicating childbirth Discussed risks associated with obesity in including increased risk of HTN, diabetes, . Also discussed risk of undiagnosed anomalies. She was counseled that recommended weight gain is between 10-15 lb. She should eat a balanced diet and incorporate regular moderate activity. She was encouraged to start ASA daily and to have baseline pre-eclampsia labs on her way out. * Chela Villalba MD - 07/26/2024 12:11 PM ESTAssociated Problem(s): Sciatica of right side I offered PT referral. She was agreeable, but not sure she can make it work with her schedule. * Chela Villalba MD - 07/26/2024 12:03 PM ESTAssociated Problem(s): History of delivery Plans repeat * Chela Villalba MD - 07/26/2024 11:30 AM EST negative * Chela Villalba MD - 07/26/2024 11:30 AM EST Rebeca Cabrera , Your Pap smear was normal. Based on this result, you should have a repeat Pap in 5 years, but should continue to have yearly pelvic exams in the office. Sincerely, Chela Villalba MD * Chela Villalba MD - 07/26/2024 11:30 AM EST Call your PCP today to get an appointment for your asthma within the next week. Ask them to send you a refill for your albuterol. You may need an inhaled steroid. If you are having worsening shortness of breath, you should go to the ED. * Chela Villalba MD - 07/26/2024 11:30 AM EST OB 12 week appt IP: S: Rebeca is a 38 y.o. year old here for IP visit. Her is unplanned. She and the fatherof the baby are happy. In [employer]: [place]. Patient's last menstrual period was 04/20/2024 (approximate). [...] her last . Has a PCP at [facility]. Has never been admitted for asthma. Has used steroids once before and this wasa couple years ago. O: Blood pressure 112/76, [...] the first trimester and how to contact turkey boner provider. Discussed the benefits of breast feeding and strongly encouraged to consider this. Counseled regarding the diagnosis of anomalies. She was offered a referral to maternal medicine for nuchal lucency/Milroy testing. She already accepted the referral. RTO [...] MD on 07/26/2024 at 12:25 PM EST documented in this encounter Plan of Treatment Upcoming Encounters Date Type Department Care Team (Late st Contact Info) Description 09/27/2024 2:00 PM EDT Ancillary Procedure Maternal Medicine [address] [phone] Scheduled Referrals Name Type Priority Associated Diagnoses Order Schedule Ambulatory referral to Physical Therapy and Athletic Training Outpatient Referral Routine Sciatica of right side 1 Occurrences starting 07/26/2024 until 07/26/2025 documented as of this encounter Procedures Procedure Name Priority Date/Time Associated Diagnosis Comments HPV WITH REFLEX GENOTYPE Routine 07/26/2024 11:59 AM EST Screening for cervical cancer CHLAMYDIA TRACHOMATIS AND NEISSERIA GONORRHOEAE PCR Routine 07/26/2024 11:59 AM EST Screening examination for venereal disease PAP SMEAR Routine 07/26/2024 11:59 AM EST Screening for cervical cancer documented in this encounter Results * Protein and creatinine with ratio, urine (07/26/2024 12:40 PM EST) Protein, Urine 17 mg/dL LAB CHEMISTRY METHOD 07/26/2024 4:05 PM [facility] Prot/Creat, Ur 0.06 <=0.20 mg/mg creat LAB CHEMISTRY METHOD 07/26/2024 4:05 PM [facility] Creatinine, Urine 265.0 mg/dL LAB CHEMISTRY METHOD 07/26/2024 4:05 PM [facility] Urine Urine specimen obtained by clean catch procedure / Unknown Non-blood Collection / Unknown 07/26/2024 12:40 PM EST 07/26/2024 12:40 PM EST us Chela Villalba MD LAB URINE ORDERABLES Final Result [facility] [address] [place] [address], * (ABNORMAL) Creatinine (07/26/2024 12:40 PM EST) Creatinine 0.46(L) 0.50 - 1.10 mg/dL LAB CHEMISTRY METHOD 07/26/2024 4:49 PM [facility] eGFR 125 >=60 mL/min/1. 73m2 LAB CHEMISTRY METHOD 07/26/2024 4:49 PM [facility] Comment:Calculation based on the??Chronic Kidney Disease Epidemiology Collaboration (CKD-EPI) equation refit??without adjustment for race. Blood Venous blood specimen / Unknown Venipuncture / Unknown 07/26/2024 12:40 PM EST 07/26/2024 12:40 PM EST us Chela Villalba MD LAB BLOOD ORDERABLES Final Result Performing Organization Address [facility]/ZIP Co de Phone Number [facility] [address] [place] [address], [place] [phone] * Alanine aminotransferase (07/26/2024 12:40 PM EST) ALT (SGPT) 26 10 - 60 unit/L LAB CHEMISTRY METHOD 07/26/2024 4:49 PM EST [facility] Blood Venous blood specimen / Unknown Venipuncture / Unknown 07/26/2024 12:40 PM EST 07/26/2024 12:40 PM EST us Chela Villalba MD LAB BLOOD ORDERABLES Final Result Performing Organization Address [facility] de Phone Number [facility] [address] [place] [address], [place] [phone] * Aspartate aminotransferase (07/26/2024 12:40 PM EST) AST (SGOT) 13 10 - 42 unit/L LAB CHEMISTRY METHOD 07/26/2024 4:49 PM EST [facility] Blood Venous blood specimen / Unknown Venipuncture / Unknown 07/26/2024 12:40 PM EST 07/26/2024 12:40 PM EST us Chela Villalba MD LAB BLOOD ORDERABLES Final Result Performing Organization Address [facility] Co de Phone Number [facility] [address] [place] [address], [place] [phone] * HPV with reflex genotype (07/26/2024 11:59 AM EST) HPV Negative Negative LAB MICROBIOLOGY METHOD 07/27/2024 2:58 PM EST [facility] Brushing/Spatula Cervix uteri structure / Unknown 07/26/2024 11:59 AM EST 07/27/2024 7:45 AM EST us Chela Villalba MD LAB MOLECULAR DIAGNOSTICS O RDERABLES Final Result [facility] [address] [place] [address], [place] [phone] * Chlamydia trachomatis and Neisseria gonorrhoeae molecular study (07/26/2024 11:59 AM EST) Neisseria gonorrhoeae PCR Negative Negative LAB MOLECULAR DIAGNOSTICS METHOD 07/27/2024 8:35 AM EST [facility] Chlamydia trachomatis PCR Negative Negative LAB MOLECULAR DIAGNOSTICS METHOD 07/27/2024 8:35 AM EST [facility] Swab Cervix uteri structure / Unknown Non-blood Collection / Unknown 07/26/2024 11:59 AM EST 07/26/2024 11:59 AM EST us Chela Villalba MD LAB MICROBIOLOGY - GENERAL ORDERABLES Final Result [facility] [address] [place] [address], [place] [phone] * Pap smear (07/26/2024 11:59 AM EST) Interpretation Negative for intraepithelial lesion or malignancy 07/30/2024 4:12 PM EST [facility] General Categorization Negative 07/30/2024 4:12 PM [facility] Specimen Adequacy Satisfactory for evaluation, endocervical/jarquin sformation zone component absent 07/30/2024 4:12 PM EST [facility] Pap Methodology Liquid Based Pap Test 07/30/2024 4:12 PM [facility] Disclaimer The Pap test is a screening test which carries an inherent false negative rate. These test results should be correlated with the patient's clinical findings and history. This Pap test was processed using an automated screening system. Technical cytopathology services provided by [facility], at [address] [place] [address] (CLIA # [id number]/Yamilet Sims MD, Plastic Design Applier.) 07/30/2024 4:12 PM [facility] Console Pap Interpretation Reported 07/30/2024 4:12 PM [facility] Brushing/Spatula Cervix uteri structure / Unknown 07/26/2024 11:59 AM EST 07/26/2024 11:59 AM EST us Chela Villalba MD LAB CYTOLOGY ORDERABLES Fin al Result [facility] [address] [place] [address], documented in this encounter Visit Diagnoses Diagnosis care, subsequent in first trimester- Primary Screening for cervical cancer Screening for malignant neoplasm of the cervix Screening examination for venereal disease in first trimester with history of ectopic Obesity complicating childbirth Multigravida of advanced maternal age in first trimester History of delivery Sciatica of right side Moderate persistent extrinsic asthma without complication documented in this encounter Additional Health Concerns Assessment Noted Time PHQ-9 Depression Total Score: 6 07/24/19 25 11:30 AM EST documented as of this encounter Care Teams Internal Controls Manager Relationship Specialty Start Date End Date Lisette Poon MD [address] [place] [phone] PCP - General Internal Medicine 06/14/24 documented as of this encounter
--- OUTSIDE RECORDS SUMMARY | 2024-08-08 17:12 | XMS_ITS | Encounter Summary ---
Author Organization [facility] Address [address] [place] [address] Care Team Providers Care Access Manager Name Role Phone Lisette Poon MD Primary Care Provider [phone] Encounter Details Date Type Department Care Team (Late Contact Info) Description 07/13/2024 11:10 AM EST Lab Draw Station - [address] in first trimester with history of ectopic (Primary Dx); care, subsequent in first trimester Social History Tobacco Use Types Packs/Day Years [...] Progress Notes * Chela Villalba MD - 07/13/2024 11:10 AM EST Normal first trimester labs documented in this encounter Plan of Treatment Upcoming Encounters Date Type Department Care Team (Late Contact Info) Description 09/27/2024 2:00 PM EDT Ancillary Procedure Maternal Medicine - [address] [phone] documented as of this encounter Procedures Procedure Name Priority Date/Time Associated Diagnosis Comments HEPATITIS C ANTIBODY Routine 07/13/2024 12:47 PM [...] of ectopic care, subsequent in first trimester VENIPUNCTURE CHARGE Routine 07/13/2024 1 2:47 PM EST in first trimester with history of ectopic DRUG ABUSE SCREEN EXPANDED WITH REFLEX CONFIRMATION, URINE Routine 07/13/2024 12:47 PM EST care, subsequent in first trimester CBC WITH AUTO DIFFERENTIAL Routine 07/13/2024 12:47 PM EST care, subsequent in first trimester RUBELLA ANTIBODY IGG Routine 07/13/2024 12:47 PM EST care, subsequent in first trimester CBC AND DIFFERENTIAL Routine 07/13/2024 12:47 PM EST care, subsequent in first trimester TYPE AND SCREEN Routine 07/13/2024 12:47 PM EST care, subsequent in first trimester CULTURE URINE Routine 07/13/2024 12:47 PM EST [...] PM EST care, subsequent in first trimester documented in this encounter Results * Venipuncture charge (07/13/2024 12:47 PM EST) Pathologist [facility] Extra Tube Hold for add-ons. 07/16/2024 11:02 AM EST [facility] Comment:Auto resulted. Blood Venous blood specimen / Unknown Venipuncture / Unknown 07/13/2024 12:47 PM EST 07/13/2024 12:47 PM EST us Chela Villalba MD LAB BLOOD ORDERABLES Final Result [facility] [address] [place] [address], * (ABNORMAL) CBC auto differential (07/13/2024 12:47 PM EST) WBC 8.5 4.8 - 10.8 K/mcL LAB HEMETOLOGY METHOD 07/13/2024 3:25 PM [facility] RBC 4.60 3.80 - 4.80 M/mcL LAB HEMETOLOGY METHOD 07/13/2024 3:25 PM EST [facility] Hemoglobin 11.9 11.5 - 16.0 g/dL LAB HEMETOLOGY METHOD 07/13/2024 3:25 PM [facility] Hematocrit 38.1 35.0 - 47.0 % LAB HEMETOLOGY METHOD 07/13/2024 3:25 PM [facility] MCV 83.2 79.0 - 98.0 FL LAB HEMETOLOGY METHOD 07/13/2024 3:25 PM [facility] MCH 26.0(L) 27.0 - 32.0 pcg LAB HEMETOLOGY METHOD 07/13/2024 3:25 PM [facility] MCHC 31.2(L) 32.0 - 37.0 g/dL LAB HEMETOLOGY METHOD 07/13/2024 3:25 PM [facility] RDW 16.0(H) 11.0 - 15.0 % LAB HEMETOLOGY METHOD 07/13/2024 3:25 PM [facility] Platelets 202 130 - 400 K/mcL LAB HEMETOLOGY METHOD 07/13/2024 3:25 PM [facility] MPV 11.9(H) 7.0 - 11.0 FL LAB HEMETOLOGY METHOD 07/13/2024 3:25 PM [facility] NRBC 0.0 <1.0 % LAB HEMETOLOGY METHOD 07/13/2024 3:25 PM [facility] NRBC Absolute 0.00 <0.10 K/mcL LAB HEMETOLOGY METHOD 07/13/2024 3:25 PM [facility] Neutrophils Relative 63.0 % LAB HEMETOLOGY METHOD 07/13/2024 3:25 PM [facility] Lymphocytes Relative 26.0 % LAB HEMETOLOGY METHOD 07/13/2024 3:25 PM [facility] Monocytes Relative 5.9 % LAB HEMETOLOGY METHOD 07/13/2024 3:25 PM [facility] Eosinophils Relative 4.4 % LAB HEMETOLOGY METHOD 07/13/2024 3:25 PM [facility] Basophils Relative 0.1 % LAB HEMETOLOGY METHOD 07/13/2024 3:25 PM EST [facility] Immature Granulocytes Relative 0.6 % LAB HEMETOLOGY METHOD 07/13/2024 3:25 PM EST [facility] Neutrophils Absolute 5.35 1.50 - 7.00 K/mcL LAB HEMETOLOGY METHOD 07/13/2024 3:25 PM EST [facility] Lymphocytes Absolute 2.21 1.00 - 5.00 K/mcL LAB HEMETOLOGY METHOD 07/13/2024 3:25 PM EST [facility] Monocytes Absolute 0.50 0.20 - 1.00 K/mcL LAB HEMETOLOGY METHOD 07/13/2024 3:25 PM EST [facility] Eosinophils Absolute 0.37 0.00 - 0.50 K/mcL LAB HEMETOLOGY METHOD 07/13/2024 3:25 PM EST [facility] Basophils Absolute 0.01 0.00 - 0.20 K/mcL LAB HEMETOLOGY METHOD 07/13/2024 3:25 PM EST [facility] Immature Granulocytes Absolute 0.05(H) 0.00 - 0.03 K/mcL LAB HEMETOLOGY METHOD 07/13/2024 3:25 PM EST [facility] Blood Venous blood specimen / Unknown Venipuncture / Unknown 07/13/2024 12:47 PM EST 07/13/2024 12:47 PM EST us Chela Villalba MD LAB BLOOD ORDERABLES Final Result [facility] [address] [place] [address], * Culture urine (07/13/2024 12:47 PM EST) Culture, Urine See comment 07/15/2024 1:48 PM EST [facility] Urine Urine specimen obtained by clean catch procedure / Unknown Non-blood Collection / Unknown 07/13/2024 12:47 PM EST 07/13/2024 12:47 PM EST [facility] - 07/15/2024 1:48 PM EST COLONY COUNT: 10,000-49,000 CFU/ML Mixed growth of urogenital lester with Beta Strep group B. The presence of Beta Strep group B may have clinical significance in women. Suggest appropriate recollection if symptoms suggest a urinary tract infection. Chela Villalba MD LAB MICROBIOLOGY - GENERAL ORDERABLES Final Result Performing Organization Address [facility]/ZIP Co de Phone Number [facility] [address] [place] [address], * Varicella zoster antibody IgG (07/13/2024 12:47 PM EST) Varicella IgG Positive Positive LAB CHEMISTRY METHOD 07/14/2024 10:25 AM EST [facility] Varicella Zoster IgG 5.80 >=1.00 S/CO LAB CHEMISTRY METHOD 07/14/2024 10:25 AM EST [facility] Blood Venous blood specimen / Unknown Venipuncture / Unknown 07/13/2024 12:47 PM EST 07/13/2024 12:47 PM EST [facility] - 07/14/2024 10:25 AM EST Interpretation >= 1.00 S/CO is considered to be consistent with Immunity Chela Villalba MD LAB BLOOD ORDERABLES Final Result Performing Organization Address [facility]/ZIP Co de Phone Number [facility] [address] [place] [address], * Hepatitis B surface antigen with reflex to confirmation (07/13/2024 12:47 PM EST) Hepatitis B Surface Ag Negative Negative LAB CHEMISTRY METHOD 07/13/2024 5:30 PM EST [facility] Blood Venous blood specimen / Unknown Venipuncture / Unknown 07/13/2024 12:47 PM EST 07/13/2024 12:47 PM EST Narrative [facility] - 07/13/2024 5:30 PM EST Over the counter supplements containing high doses of biotin may interfere with this assay. ??If interference is suspected, patients shoud be retested after refraining from biotin supplements for 72 hours. Chela Villalba MD LAB BLOOD ORDERABLES Final Result [facility] [address] [place] [address], [place] [phone] * Drug abuse screen expanded with reflex confirmation, urine (07/13/2024 12:47 PM EST) Amphetamine Screen, Ur Negative Negative LAB CHEMISTRY METHOD 07/13/2024 9:37 PM EST [facility] Comment:Certain OTC medicati ons containing ephedrine, phenylephrine, pseudoephedrine and phenylpropanolamine can cause false positive results. Barbiturate Screen, Ur Negative Negative LAB CHEMISTRY METHOD 07/13/2024 9:37 PM EST [facility] Benzodiazepine Screen, Ur Negative Negative LAB CHEMISTRY METHOD 07/13/2024 9:37 PM [facility] Cocaine Screen, Ur Negative Negative LAB CHEMISTRY METHOD 07/13/2024 9:37 PM EST [facility] Opiate Screen, Ur Negative Negative LAB CHEMISTRY METHOD 07/13/2024 9:37 PM [facility] Cannabinoid (THC) Screen, Ur Negative Negative LAB CHEMISTRY METHOD 07/13/2024 9:37 PM [facility] Comment:Specimens from patie nts taking pantoprazole sodium (Protonix) have been shown to produce false positive results. Fentanyl, Ur Negative Negative LAB CHEMISTRY METHOD 07/13/2024 9:37 PM EST [facility] Oxycodone Screen, Ur Negative Negative LAB CHEMISTRY METHOD 07/13/2024 9:37 PM EST [facility] Urine Urine specimen obtained by clean catch procedure / Unknown Non-blood Collection / Unknown 07/13/2024 12:47 PM EST 07/13/2024 12:47 PM EST Narrative [facility] - 07/13/2024 9:37 PM [...] URINE ORDERABLES Final Result Performing Organization Address City/[facility]/ZIP Co de Phone Number [facility] [address] [place] [address], [place] [phone] * Hepatitis C antibody (07/13/2024 12:47 PM EST) Hepatitis C Antibody Negative Negative LAB CHEMISTRY METHOD 07/13/2024 5:58 PM EST [facility] Blood Venous blood specimen / Unknown Venipuncture / Unknown 07/13/2024 12:47 PM EST 07/13/2024 12:47 PM EST us Chela Villalba MD LAB BLOOD ORDERABLES Final Result Performing Organization Address City/[facility]/ZIP Co de Phone Number [facility] [address] [place] [address], [place] [phone] * HIV 1,2 antibody, p24 antigen with reflex to differentiation (07/13/2024 12:47 PM EST) Pathologist [facility] HIV Combo AB/AG Negative Negative LAB CHEMISTRY METHOD 07/13/2024 5:59 PM EST [facility] Blood Venous blood specimen / Unknown Venipuncture / Unknown 07/13/2024 12:47 PM EST 07/13/2024 12:47 PM EST Narrative [facility] - 07/13/2024 5:59 PM EST This [...] BLOOD ORDERABLES Final Result Performing Organization Address City/[facility]/ZIP Co de Phone Number [facility] [address] [place] [address], [place] [phone] * Rubella antibody IgG (07/13/2024 12:47 PM EST) [facility] Rubella IgG Quant 15.8 >=10.0 I Unit/mL LAB CHEMISTRY METHOD 07/13/2024 5:36 PM EST [facility] Rubella IgG Antibody Interp Positive Positive LAB CHEMISTRY METHOD 07/13/2024 5:36 PM EST [facility] Blood Venous blood specimen / Unknown Venipuncture / Unknown 07/13/2024 12:47 PM EST 07/13/2024 12:47 PM EST us Chela Villalba MD LAB BLOOD ORDERABLES Final Result Performing Organization Address City/[facility]/ZIP Co de Phone Number [facility] [address] [place] [address], [place] [phone] * Treponema pallidum antibody with reflex to RPR and particle agglutination (07/13/2024 12:47 PM EST) T. Pallidum Antibodies Negative Negative LAB CHEMISTRY METHOD 07/13/2024 5:30 PM EST [facility] Blood Venous blood specimen / Unknown Venipuncture / Unknown 07/13/2024 12:47 PM EST 07/13/2024 12:47 PM EST us Chela Villalba MD LAB BLOOD ORDERABLES Final Result Performing Organization Address City/[facility]/ZIP Co de Phone Number [facility] [address] [place] [address], [place] [phone] * Type and screen (07/13/2024 12:47 PM EST) Pathologist [facility] ABO Group A 07/13/2024 5:29 PM EST [facility] Rh Type Positive 07/13/2024 5:29 PM EST [facility] Antibody Screen Negative 07/13/2024 5:29 PM EST [facility] Blood Venous blood specimen / Unknown Venipuncture / Unknown 07/13/2024 12:47 PM EST 07/13/2024 12:47 PM EST us Chela Villalba MD LAB BLOOD BANK TEST ORDERAB LES Final Result Performing Organization Address City/[facility]/ZIP Co de Phone Number [facility] [address] [place] [address], [place] [phone] * Hemoglobin A1c (07/13/2024 12:47 PM EST) Pathologist [facility] Hemoglobin A1C 5.7 <6.5 % LAB CHEMISTRY METHOD 07/13/2024 10:11 PM EST [facility] Mean Bld Glu Estim. 117 mg/dL LAB CHEMISTRY METHOD 07/13/2024 10:11 PM EST [facility] Blood Venous blood specimen / Unknown Venipuncture / Unknown 07/13/2024 12:47 PM EST 07/13/2024 12:47 PM EST Chela Villalba MD LAB BLOOD ORDERABLES Final Result [facility] [address] [place] [address], [place] [phone] * Venipuncture charge (07/13/2024 12:47 PM EST) Pathologist [facility] Extra Tube Hold for add-ons. 07/13/2024 2:01 PM EST [facility] Comment:Auto resulted. Blood Venous blood specimen / Unknown Venipuncture / Unknown 07/13/2024 12:47 PM EST 07/13/2024 12:49 PM EST Chela Villalba MD LAB BLOOD ORDERABLES Final Result Performing Organization Address [facility]/ZIP Co de Phone Number [facility] [place], * GTT gestational 1 hour (07/13/2024 12:43 PM EST) Glucose, 1 HR Gestational 118 See Comment mg/dL LAB CHEMISTRY METHOD 07/13/2024 4:32 PM EST [facility] Blood Venous blood specimen / Unknown Venipuncture / Unknown 07/13/2024 12:43 PM EST 07/13/2024 12:47 PM EST Narrative [facility] - 07/13/2024 4:32 PM EST Gestational Diabetes Challenge Reference Range: 1 hour Glucose <140 mg/dL us Chela Villalba MD LAB BLOOD ORDERABLES Final Result [facility] [address] [place] [address], [place] [phone] documented in this encounter Visit Diagnoses Diagnosis in first trimester with history of ectopic - Primary care, subsequent in first trimester documented in this encounter Care Teams Access Manager Relationship Specialty Start Date End Date Lisette Poon MD [address] [place] [address] PCP - General Internal Medicine 06/14/24 documented as of this encounter
--- OUTSIDE RECORDS SUMMARY | 2024-08-08 17:12 | XMS_ITS | Encounter Summary ---
Author Organization [facility] [place] [address] Care Team Providers Care Assistant Front Office Manager Name Role Phone Lisette Poon MD Primary Care Provider [phone] Encounter Details Date Type Department Care Team ([facility] st Contact Info) Description 08/02/2024 Telephone Obstetrics and Gynecology [address] [phone] Chela Villalba MD [address] [place], [place] Social History Tobacco Use Types Packs/Day Years [...] as of this encounter Progress Notes * Lauren Ocasio RN - 08/02/2024 1:13 PM EST Spoke with patient. Pt advised to repeat Panorama genetic screening test to redraw at her convenience . Pt explained previous sample did not have adequate DNA to complete the test accurately . Pt understands and will pickling drum operator kit at office. * Kandace Steinberg - 08/02/2024 10:37 AM EST Pt returning your call * Lauren Ocasio RN - 08/02/2024 10:23 AM EST Chart correction report filed to remove incorrect pt results from pts media results 08/01/24. Panorama * Lauren Ocasio RN - 08/02/2024 10:13 AM EST VM left to return call * Autumn Gibbons - 08/02/2024 9:07 AM EST Chief Complaint/problem: pt is calling to discuss recent test results. Also, she has someone else'smedical records scanned into her chart. It was 7 pages uploaded, 4 are hers and 3 are someone elses. Please advise How long has the patient had this problem? Pt???s [employer]PERINTENDENT provider: Chela Villalba MD Last menstrual period (LMP) or EDC (due date): documented in this encounter Plan of Treatment Upcoming Encounters Date Type Department Care Team (Late st Contact Info) Description 09/27/2024 2:00 PM EDT Ancillary Procedure Maternal Medicine - [place] [address] [place] [address] documented as of this encounter Visit Diagnoses Diagnosis care, subsequent in second trimester- Primary documented in this encounter Additional Health Concerns Assessment Noted Time PHQ-9 Depression Total Score: 6 07/24/19 11:30 AM EST documented as of this encounter Care Teams Assistant Front Office Manager Relationship Specialty Start Date End Date Lisette Poon MD [address] [place] [address] PCP - General Internal Medicine 06/14/24 documented as of this encounter
--- OUTSIDE RECORDS SUMMARY | 2024-08-08 17:12 | XMS_ITS | Encounter Summary ---
Author Organization [facility] [place] [address] Care Team Providers Care Automatic Door Mechanic Name Role Phone Lisette Poon MD Primary Care Provider [phone] Reason for Visit * Imaging (Routine) - Pending Review Specialty Diagnoses / Procedures Referred By Contac t Referred To Contact Radiology Diagnoses care, subsequent in first trimester Procedures US OB Less 14 Wks Nuchal Measurement Chela Corey MD [address] [place], [place] Phone: tel: fax: [address] Phone: tel: Referral ID Status Reason Start Date Expiration Date V isits Requested Visits Authorized [id number] Pending Review 07/13/2024 07/13/2025 1 1 Encounter Details Date Type Department Care Team (Latest Contact Info) Description 07/19/2024 3:00 PM EST Ancillary Procedure Maternal Medicine - [address] [phone] care, subsequent in first trimester Social History [...] of this encounter Progress Notes * Chela Corey MD - 07/19/2024 3:00 PM EST Normal early US documented in this encounter Plan of Treatment Upcoming Encounters Date Type Department Care Team (Late st Contact Info) Description 09/27/2024 2:00 PM EDT Ancillary Procedure Maternal Medicine [address] [phone] documented as of this encounter Procedures Procedure Name Priority Date/Time Associated Diagnosis Comments US OB LESS 14 WKS NUCHAL MEASUREMENT Routine 07/19/2024 3:24 PM EST care, subsequent in first trimester US OB LESS 14 WKS SINGLE OR FIRST GESTATION Routine 07/19/2024 3:24 PM EST care, subsequent in first trimester documented in this encounter Results * US OB Less 14 Wks Single or First Gestation (07/19/2024 3:24 PM EST) Anatomical Region Laterality Modality Body Ultrasound 07/19/2024 2:57 PM EST Narrative 07/19/2024 5:11 PM EST OBSTETRICS REPORT ?(Signed Final 07/19/2024 05:11 pm) PATIENT INFO: ID #: ? [id number] ? : ??[birth year] (38 yrs)(F) Name: ? REBECA CABRERA ? Visit Date: 07/19/2024 02:57 pm PERFORMED BY: Attending: ?Flaquita Coppola MD Performed By: ? Nicholas Cisneros RDMS Referred By: ?CHELA COREY Location: ? [facility] SERVICE(S) PROVIDED: US Nuchal Translucency ?94585 US < 14 weeks Abdominal Ultrasound ?85006 INDICATIONS: Advanced Maternal Age in multigravida, first [...] Adnexa Both adnexae appear unremarkable. COMMENTS: Ms. Cabrera is being seen for first trimester screening for aneuploidy. - Her medical history is significant for class III obesity, anxiety and depression. Her obstetrical history is significant for one term delivery and one ectopic. She had a right oophorectomy. - She states she had cell free DNA screening. There are no results available in [facility] at the time of this ultrasound. - [...] 07/19/2024 05:11 pm) PATIENT INFO: ID #: [id number] : [birth year] (38 yrs)(F) Name: REBECA CABRERA Visit Date: 07/19/2024 02:57 pm PERFORMED BY: Attending: Flaquita Coppola MD Performed By: Nicholas Cisneros RDMS Referred By: CHELA COREY Location: [facility] SERVICE(S) PROVIDED: US Nuchal Translucency 67278 US < 14 weeks Abdominal Ultrasound 32829 INDICATIONS: Advanced Maternal Age in multigravida, first [...] Adnexa Both adnexae appear unremarkable. COMMENTS: Ms. Cabrera is being seen for first trimester screening for aneuploidy. - Her medical history is significant for class III obesity, anxiety and depression. Her obstetrical history is significant for one term delivery and one ectopic. She had a right oophorectomy. - She states she had cell free DNA screening. There are no results available in [facility] at the time of this ultrasound. - [...] Final Report 07/19/2024 05:11 pm us Chela Corey MD IMG OB US PROCEDURES Final Result * US OB Less 14 Wks Nuchal Measurement (07/19/2024 3:24 PM EST) Anatomical Region Laterality Modality Body Ultrasound 07/19/2024 2:57 PM EST Narrative 07/19/2024 5:11 PM EST OBSTETRICS REPORT ?(Signed Final 07/19/2024 05:11 pm) PATIENT INFO: ID #: ? [id number] ? : ??[birth year] (38 yrs)(F) Name: ? REBECA CABRERA ? Visit Date: 07/19/2024 02:57 pm PERFORMED BY: Attending: ?Flaquita Coppola MD Performed By: ? Nicholas Cisneros RDMS Referred By: ?CHELA COREY Location: ? [facility] SERVICE(S) PROVIDED: US Nuchal Translucency ?40401 US < 14 weeks Abdominal Ultrasound ?84411 INDICATIONS: Advanced Maternal Age in multigravida, first [...] Adnexa Both adnexae appear unremarkable. COMMENTS: Ms. Cabrera is being seen for first trimester screening for aneuploidy. - Her medical history is significant for class III obesity, anxiety and depression. Her obstetrical history is significant for one term delivery and one ectopic. She had a right oophorectomy. - She states she had cell free DNA screening. There are no results available in [facility] at the time of this ultrasound. - [...] 07/19/2024 05:11 pm) PATIENT INFO: ID #: [id number] : [birth year] (38 yrs)(F) Name: REBECA CABRERA Visit Date: 07/19/2024 02:57 pm PERFORMED BY: Attending: Flaquita Coppola MD Performed By: Nicholas Cisneros RDMS Referred By: CHELA COREY Location: [facility] SERVICE(S) PROVIDED: US Nuchal Translucency 54569 US < 14 weeks Abdominal Ultrasound 97418 INDICATIONS: Advanced Maternal Age in multigravida, first [...] Adnexa Both adnexae appear unremarkable. COMMENTS: Ms. Cabrera is being seen for first trimester screening for aneuploidy. - Her medical history is significant for class III obesity, anxiety and depression. Her obstetrical history is significant for one term delivery and one ectopic. She had a right oophorectomy. - She states she had cell free DNA screening. There are no results available in [facility] at the time of this ultrasound. - [...] Final Report 07/19/2024 05:11 pm us Chela Corey MD IM OB US PROCEDURES Final Result documented in this encounter Visit Diagnoses Diagnosis care, subsequent in first trimester documented in this encounter Care Teams Automatic Door Mechanic Relationship Specialty Start Date End Date Lisette Poon MD [address] [place] [phone] PCP - General Internal Medicine 06/14/24 documented as of this encounter
--- OUTSIDE RECORDS SUMMARY | 2024-08-08 17:12 | XMS_ITS | Encounter Summary ---
Author Organization [place] [address] Care Team Providers Care Air Drier Machine Operator Name Role Phone Lisette Poon MD Primary Care Provider [phone] Reason for Visit * Reason Onset Date Comments Problem 07/18/2024 Encounter Details Date Type Department Care Team ([facility] Contact Info) Description 07/18/2024 Telephone Obstetrics and Gynecology [address] [phone] Chela Villalba MD [address] [place], [place] Problem Social History Tobacco Use Types Packs/Day Years [...] as of this encounter Progress Notes * Joy Velasquez RN - 07/18/2024 11:54 AM EST Patient called back. She reports she woke up with a really bad headache. She wanted to review her labs. Advised her that her labs are all normal. Pt thinks she is coming down with something. Advised her to see her pcp if she thinks she has an infection in her throat. * Joy Velasquez RN - 07/18/2024 11:50 AM EST Called patient, no answer , left message for pt to call back. * Yissel Cheng - 07/18/2024 11:41 AM EST Chief Complaint/problem: Pt is 3 months and states she is having persistent painful headaches. Says she doesn't feel well, like she has some sort of infection. Pt was on the bus so it was difficult to hear everything she was saying. How long has the patient had this problem? 2 days Pt???s CUSTODIAL MANAGER provider: Chela Villalba MD Last menstrual period (LMP) or EDC (due date): EDC 01/25/25 documented in this encounter Plan of Treatment Upcoming Encounters Date Type Department Care Team (Late st Contact Info) Description 09/27/2024 2:00 PM EDT Ancillary Procedure Maternal Medicine - [address] [phone] documented as of this encounter Visit Diagnoses Not on filedocumented in this encounter Care Teams Air Drier Machine Operator Relationship Specialty Start Date End Date Lisette Poon MD [address] [place] [address] PCP - General Internal Medicine 06/14/24 documented as of this encounter
== END 2024-08-08 17:44 | disposition home or self-care (01) ==
PROVIDERS: PCP Internal Medicine; Visit Provider Internal Medicine
DX: Z00.00 Encounter for general adult medical examination without abnormal findings (principal); J06.9 Acute upper respiratory infection, unspecified; E66.01 Morbid (severe) obesity due to excess calories; Z68.41 Body mass index [BMI] 40.0-44.9, adult

== ENCOUNTER → 2024-08-08 17:10 | Outpatient (BNVA) | payer OTHER, SELFPAY | PROVIDERS: PCP Internal Medicine; Visit Provider Internal Medicine | DX: Z00.00 Encounter for general adult medical examination without abnormal findings (principal); E66.01 Morbid (severe) obesity due to excess calories; J06.9 Acute upper respiratory infection, unspecified | CPT/HCPCS: 96127; 99212 ==

== ENCOUNTER 2025-03-27 11:31 | Outpatient (AMB) | payer OTHER, SELFPAY ==
--- NOTE | 2025-03-27 11:34 | MHC.PC.OV ---
Vital Signs 03/27/25 11:35 Height 5 ft 6 in Weight 283 lb 2 oz BMI 45.7 BP 142/92 H Blood Pressure Location Lt brachial Position Sitting Pulse 91 Pulse Source Pulse Oximeter Temp 97.1 F Temp Source Temporal Artery Scan Pulse Oximetry (%) 98 Oxygen Delivery Method Room Air Intake Visit Reasons: LT leg numbness/carpal tunnel Allergies No Known Allergies (No Known Allergies*) Allergy (Verified 03/27/25 11:40) Medication List - Last Reconciled 03/27/25 by Herman Fernando MD albuterol sulfate 90 mcg/actuation 2 puffs inhalation Q4-6H PRN buspirone 7.5 mg PO BID 30 days cetirizine (Zyrtec) 10 mg PO DAILY fluticasone propionate 50 mcg/actuation (Flonase Allergy Relief) 1 spray intranasal DAILY 30 days tizanidine 4 mg PO Q8H PRN 30 days Ventolin HFA 90 mcg/actuation (albuterol sulfate) 2 puffs inhalation Q6H PRN 30 days NS zolpidem 5 mg PO BEDTIME PRN 30 days Tobacco use date assessed: 03/27/25 Dental Screening Dental Screen Date: 03/27/25 Did you have a dental visit in the last 12 months?: Yes Did you have a dental problem in the last 6 months where you did not have access to dental care?: No Was dental information given to patient?: Patient has dentist HPI HPI Comments History of Present Illness Details The patient is a 39-year-old female presenting with severe pain in the lower back and hips, exacerbated , and numbness in the hands. The patient has a history of lumbar disc degeneration and sciatica, which was managed with injections prior to . The condition worsened during , and she was unable to undergo an MRI due to her status. , the pain has intensified, affecting her ability to walk and perform daily activities. She reports numbness and tingling in her hands, consistent with carpal tunnel syndrome, which has been affecting her ability to feel and use her fingers. The symptoms are more pronounced in one hand and are accompanied by pain upon touch. The patient experienced significant hemorrhage, with heavy bleeding and large blood clots following her first menstrual period after childbirth. She did not seek hospital care at the time but reports feeling that she lost a significant amount of blood. Her blood pressure was elevated during the visit, which she attributes to the severe pain she is experiencing. [facility] Medical History Bilateral sacroiliitis Rheumatoid arthritis Bleeding hemorrhoids Moderate recurrent major depression Bloody stools Left sided sciatica Morbid obesity Encounter for cholecystectomy section wound complication Obesity Gall bladder stones Anxiety Asthma Cholecystectomy planned Surgical History History of cholecystectomy Hx of removal of ovary Family History Maternal Grandmother Esophageal cancer Father Heart attack Family/Other Mental health disorder Substance use disorder Family/Other No problems noted. Mother Lumbar degenerative disc disease Social History Housing: Apartment Alcohol intake: former Patient Tobacco Use Status: Current someday Tobacco user Tobacco use type: Cigarette Cigarettes Per Day: 5 e-Cigarette/Vaping Use: Never Used Second Hand Smoke Exposure: No service: No Current occupational status: unemployed Gender identity: Female Cognitive needs: No Hearing needs: No Vision needs: Yes Female Reproductive History Menstrual Age of Menarche: 10 Questionnaire PHQ-9 Over the last 2 weeks, how often have you been bothered by any of the following problems? 1. Little interest or pleasure in doing things: not at all 2. Feeling down, depressed, or hopeless: several days 3. Trouble falling or staying asleep, or sleeping too much: not at all 4. Feeling tired or having little energy: not at all 5. Poor appetite or overeating: not at all 6. Feeling bad about yourself - or that you are a failure or have let yourself or your family down: not at all 7. Trouble concentrating on things, such as reading the newspaper or watching television: not at all 8. Moving or speaking so slowly that other people could have noticed. Or the opposite - being so fidgety or restless that you have been moving around a lot more than usual: not at all 9. Thoughts that you would be better off or of hurting yourself in some way: not at all Total score: 1 Depression Screening Interpretation: Negative Depression Screening Done: Yes Source: Developed by Drs. Bennett L. Ioana Jordan Kurt Kroenke and colleagues, with an educational xiomara from [employer]. Thrive Questionnaire Date Thrive assessed: 08/08/24 I am a: Patient What is your living situation today?: I have a steady place to live Within the past 12 months, did the food you bought not last and you didn't have the money to get more?: Never true Within the past 12 months, did you worry whether your food would run out before you got money to buy more?: Never true Do you have trouble paying for medicines?: No Do you have trouble getting transportation to medical appointments?: No Do you have trouble paying your heating and electricity bill?: No Do you have trouble taking care of your child, family member or friend?: No Do you have trouble with day-to-day activities such as bathing, preparing meals, shopping, managing finances, etc.?: No Are you currently unemployed and looking for a job?: No Are you interested in more education?: No Please select the resources that you would like help with: None Currently or been in a relationship where the following occur: No concerns reported THRIVE Score: 0 AUDIT C Alcohol Use Questionnaire (AUDIT-C) 1. How often do you have a drink containing alcohol?: Never 3. How often do you have six or more drinks on one occasion?: Never Total Score: 0 KHARI-7 AMB Questionnaire KHARI-7 Date KHARI - 7 assessed: 08/08/24 Feeling nervous, anxious, or on edge: 1 = Several days Not being able to stop or control worryin = Not at all Worrying too much about different things: 1 = Several days Trouble relaxin = Not at all Being so restless that it is hard to sit still: 0 = Not at all Becoming easily annoyed or irritable: 0 = Not at all Feeling afraid as if something awful might happen: 0 = Not at all Total KHARI-7 score (0-4 normal; 5-9 mild; 10-14 moderate; 15-21 severe): 2 Source: Developed by Ioana Bajwa Kurt Kroenke and colleagues, with an educational xiomara from [employer]. Review of Systems Const Details: Positives besides what was mentioned in HPI are in BOLD Constitutional: No Weight Change, No Fever, No Chills, No Night Sweats, No Fatigue, No Malaise ENT/Mouth: No Hearing Changes, No Ear Pain, No Nasal Congestion, No Sinus Pain, No Hoarseness, No sore throat, No Rhinorrhea, No Swallowing Difficulty Eyes: No Eye Pain, No Swelling, No Redness, No Foreign Body, No Discharge, No Vision Changes Cardiovascular: No Chest Pain, No SOB, No PND, No Dyspnea on Exertion, No Orthopnea, No Claudication, No Edema, No Palpitations Respiratory: No Cough, No Sputum, No Wheezing, No Smoke Exposure, No Dyspnea Gastrointestinal: No Nausea, No Vomiting, No Diarrhea, No Constipation, No Pain, No Heartburn, No Anorexia, No Dysphagia, No Hematochezia, No Melena, No Flatulence, No Jaundice Genitourinary: No Dysmenorrhea, No DUB, No Dyspareunia, No Dysuria, No Urinary Frequency, No Hematuria, No Urinary Incontinence, No Urgency, No Flank Pain, No Urinary Flow Changes, No Hesitancy Musculoskeletal: No Arthralgias, No Myalgias, No Joint Swelling, No Joint Stiffness, No Back Pain, No Neck Pain, No Injury History Skin: No Skin Lesions, No Pruritis, No Hair Changes, No Breast/Skin Changes, No Nipple Discharge Neuro: No Weakness, No Numbness, No Paresthesias, No Loss of Consciousness, No Syncope, No Dizziness, No Headache, No Coordination Changes, No Recent Falls Psych: No Anxiety/Panic, No Depression, No Insomnia, No Personality Changes, No Delusions, No Rumination, No SI/HI/AH/VH, No Social Issues, No Memory Changes, No Violence/Abuse Hx., No Eating Concerns Heme/Lymph: No Bruising, No Bleeding, No Transfusions History, No Lymphadenopathy Endocrine: No Polyuria, No Polydipsia, No Temperature Intolerance Physical exam (Primary Care) Vital Signs: Last Vital Signs Temp 97.1 F 03/27/25 11:35 Pulse 91 03/27/25 11:35 BP 142/92 H 03/27/25 11:35 Pulse Ox 98 03/27/25 11:35 Oxygen Delivery Method Room Air 03/27/25 11:35 BMI result Body Mass Index 45.7 Tobacco/Smoking Status: Tobacco use Status Tobacco use date assessed 03/27/25 03/27/25 11:41 Patient Tobacco Use Status Current someday Tobacco 03/27/25 11:41 Tobacco use type Cigarette 03/27/25 11:41 e-Cigarette/Vaping Use Never Used 03/27/25 11:41 PHQ-9: PHQ-9 Score PHQ-9: Total score 1 03/27/25 12:02 Depression Screening Interpretation: Negative Thrive Assessment: Date of Thrive Assessment Date Thrive assessed 08/08/24 03/27/25 11:41 Currently or been in a relationship where the following occur: No concerns reported Const Other: Pertinent findings are in BOLD GENERAL APPEARANCE NAD, activity normal for age, well developed/ well nourished, no cyanosis, pallor, or diaphoresis. EYES lids/conjunctiva normal. EARS/NOSE/THROAT Mucous membranes moist, nares normal, lips/teeth normal uvula midline without oral pharyngeal erythema, exudate or swelling TMs normal bilaterally. No lymphangitis/lymphedema. HEAD/NECK normocephalic atraumatic, no facial trauma, neck is supple. RESPIRATORY respiratory effort normal, speaks in full sentences, no tripod position, no accessory muscle use. Lungs clear to auscultation without rhonchi, wheezes, rales CARDIAC Regular rate and rhythm, no edema. ABDOMINAL Soft, ND/NT. No evidence of fluid wave. No pulsatile masses on exam, rebound tenderness, Khan sign or pain over Mcburney's point. MUSCLES/EXTREMITIES No abnormal range of motion, no swelling. Tenderness to lower back. Leg raise positive. SKIN Warm, pink and dry. No rashes, dermatoses, petechiae or lesions. NEUROLOGICAL Speech is clear and appropriate. Normal level of consciousness. Gait and coordination are normal. 5/5 strength in all extremities. PSYCH Normal mood and affect. Judgement/competence is appropriate Coding Level of Care Code Est Pt Level 4 (14570) Diagnoses Spondylosis of lumbar region without myelopathy or radiculopathy M47.816 Healthcare maintenance Z00.00 bleeding O72.1 Time Spent (min) 30 Assessment & Plan Assessment & Plan (1) Spondylosis of lumbar region without myelopathy or radiculopathy: Code(s): M47.816 - Spondylosis without myelopathy or radiculopathy, lumbar region Category: Medical Plan: - MRI ordered to evaluate the extent of degeneration. - Discussion of potential surgical intervention if condition worsens. (2) Healthcare maintenance: Code(s): Z00.00 - Encounter for general adult medical examination without abnormal findings Category: Medical Plan: Ordered labs prior to patient's visit with Dr. Hanna in May 2025. Labs ordered: CBC, CMP, Lipid panel, vit D, TSH, vit B12. (3) bleeding: Code(s): O72.1 - Other immediate hemorrhage Category: Medical Plan: Patient reports heavy menstrual bleeding after her delivery. We will assess for anemia with CBC, folate and B12. Plan I discussed with the patient the need for an MRI to evaluate her lumbar disc degeneration and sciatica further. We talked about the possibility of referring her back to pain management after obtaining the MRI results. We discussed her hemorrhage and the importance of monitoring her symptoms. Additionally, we talked about managing her pain to help control her blood pressure. I advised her to follow up with Dr. Hanna for further management and to complete any pending labs before her next appointment. Orders: Orders Comprehensive Met. Panel Today Z00.00 - Encounter for general adult medical examination without abnormal findings Hemoglobin A1c Today Z00.00 - Encounter for general adult medical examination without abnormal findings Vitamin D 1,25 dihydroxy Today Z00.00 - Encounter for general adult medical examination without abnormal findings Vitamin B12 and Folate Today Z00.00 - Encounter for general adult medical examination without abnormal findings MR lumbar spine wo con Today M47.816 - Spondylosis without myelopathy or radiculopathy, lumbar region Complete Blood Count Auto Diff Today Z00.00 - Encounter for general adult medical examination without abnormal findings TSH reflex Free T4 Today Z00.00 - Encounter for general adult medical examination without abnormal findings Lipid Panel Today Z00.00 - Encounter for general adult medical examination without abnormal findings
[2025-03-27 11:35] VITALS: BP 142/92; PULSE 91; TEMP 36.2; O2SAT 98; BMI 45.7
--- OUTSIDE RECORDS SUMMARY | 2025-03-27 13:06 | XMS_ITS | Clinical Summary ---
Author Organization [facility] Address [address] [place] [id number] Phone Care Team Providers Care Ticket Taker Ferryboat Name Role Phone Unavailable Primary Care Provider [...] Vaccines (3 - Tdap) 04/13/2000 04/12/2000, 10/09/1999 HPV Vaccines (1 - 3-dose SCD M series) 12/04/2011 Influenza Vaccines (#1) 2025 04/12/20 00, 04/12/2000 COVID-19 Vaccine (2024-2 6 season) 2025 MMR Vaccines Completed 09/21/1996 HIB Vaccines Aged [...]
--- OUTSIDE RECORDS SUMMARY | 2025-03-27 13:06 | XMS_ITS | Clinical Summary ---
Author Organization [facility] [address] [place] [address] [place] [phone] Phone Care Team Providers Care Certification Engineer Name Role Phone Lisette Poon MD Primary Care Provider [phone] Allergies No known active allergies Medications albuterol HFA (PROAIR HFA ; PROVENTIL HFA ; VENTOLIN HFA) 90 mcg/actuation inhaler Inhale 2 puffs by mouth every 6 (six) hours if needed for wheezing. Active Vitamin iron fum-folic acid 27-0.8 mg per tablet TAKE 1 TABLET BY MOUTH 1 TIME EACH DAY. 30 tablet 11 5 Active fluticasone furoate (Arnuity Ellipta) 100 mcg/actuation blister with device inhaler Inhale 1 puff by mouth 1 (one) time each day. 1 each 1 5 Active blood-glucose meter kitIndications: gestational diabetes mellitus To test blood sugar four times a day (fasting, 2 hours after breakfast, 2 hours after lunch, and 2 hours after dinner) 1 kit 5 Active Additional Information Patient not taking.Reported on 01/01/2025 famotidine (PEPCID) 20 mg tablet Take 1 tablet (20 mg total) by mouth 2 (two) times a day. 60 tablet 3 5 Active freestyle 28 gauge lancetsIndicati ons:gestational diabetes mellitus To test blood sugar four times a day (fasting, 2 hours after breakfast, 2 hours after lunch, and 2 hours after dinner) 150 each 5 5 Active Additional Information Patient not taking.Reported on 01/01/2025 oxyCODONE (ROXICODONE) 5 mg immediate release tabletIndicatio ns: delivery delivered Take 1 tablet (5 mg total) by mouth every 6 (six) hours if needed for severe pain. Max Daily Amount: 20 mg 5 tablet Active Active Problems Problem Noted Date Diagnosed Date History of diet controlled g estational diabetes mellitus (GDM) 01/14/2025 Overview (01/14/2025): 2024 GDMA1 - did not test her blood sugars (had 12lb 2.4oz baby) 2 hour GTT at 6-12 weeks PP leave on problem list as h istory of and add to overview Recommendation for Q 1-3 year GTT with PCP S/P repeat low transverse 01/10/2025 Non-reassuring heart r ate, delivered, current hospitalization 01/10/2025 Noncompliance 01/01/2025 Overview (01/01/2025): Rebeca has gestational diabetes and has yet to test her blood sugars related carpal tunnel syndrome in thir d trimester 12/14/2024 Diet controlled gestational diabetes mellitus (GDM) in third trimester 12/12/2024 Overview (01/01/2025): 1 hour test at 24-28 wks: >140 Perform 3 hour- if 1 hr >200, patient is diagnosed with GDM and does not need 3- hr GTT Forward chart to P [id number] ([facility]) Diabetic teaching and visit with diabetic provider ([facility] or [facility]) 4 times per day testing (fasting and 2 hour postprandial) to be reviewed weekly Goals: fasting <95, 2 hr PP <120 If > or = 1/3 elevated, send to diabetic provider for insulin therapy IF DIAGNOSED ON EARLY SCREENING: order a echocardiogram between 22-24 weeks Serial growth ultrasounds after diagnosis Insole Taper on shoulder dystocia Deliver by 40 6/7 weeks 2 hour GTT at 6-12 weeks PP leave on problem list as h istory of and add to overview Recommendation for Q 1-3 year GTT with PCP Macrosomia 12/07/2024 Overview (12/07/2024): Complete 3hr GTT, repeat US in 4 weeks Growth 99%tile Cigarette smoker 09/20/2024 Sciatica of right side 07/26/2024 Overview (07/26/2024): [...] ago. Follows with PCP. Assessment & Plan (11/08/2024 3:44 PM EDT): Due to wheezing and worsening symptoms, as well as increasing frequency of fast acting inhaler use, will start inhaled corticosteroid. Start daily over the counter Claritin or Zyrtec for allergies Start budesonide inhaler twice daily for better asthma control Use fast acting inhaler as needed Follow up with your PCP in 1-2 weeks for your asthma Call 911 or go to the ED if you are having significant difficulty breathing Assessment & Plan (07/26/2024 12:25 PM EST): I recommended Rebeca call her PCP office today to get an appt within the next week to be seen. She was counseled that asthma can significantly worse in . She should continue using her rescue inhaler prn and seek attention in the ED if her SOB worsens. care, subsequent in [facility] 07/13/2024 Overview (12/24/2024): [facility]. [place] [place] [facility]: [address] [place] [phone] ([phone]) 2. Delivery site: [facility] 3. Mobile Mommas: No 4. Dating criteria: LMP 5. Blood type: A+ 6. Genetic screening: Date: 09/13 Result: Panorama: Low risk XY Horizon: Neg Nuchal: Ordered 07/19/24 @ 3pmLuis Survey: 09/27 MSAFP: missed the window for testing 6. GBS: Date: 12/24/24 negative 7. FOB name: Shiva 8. Plans A. Epidural or other pain management - B. Labor support identified - C. Tdap - Date: 11/08 Flu - Date: D. Breast or Bottle feed: Bottle feeding E. Baby's name - F. Circumcision - 9. Hospital Course: Obesity during 07/13/2024 Overview (12/14/2024): BMI- 43 HgbA1C and 1 hour GTT at initial labs- normal ASA 162mg at 12 weeks until delivery- ordered Detailed anatomy ultrasound Repeat GTT 24-28 weeks if early is normal Pre-preg BMI >40: NST weekly at 34 weeks Growth US at 32 and 36 weeks for BMI >40 BMI of 50 by 28wks transfer to [facility] DVT prophylaxis- Lovenox if CS and BMI [...] out. Multigravida of advanced maternal age in third t rimester 07/13/2024 Overview (07/13/2024): ASA 162 [...] right oophorectomy 07/13/2024 History of cholecystectomy 07/13/2024 History of ectopic 07/13/2024 History of delivery 07/13/2024 Overview (12/21/2024): 2009 FTP and [facility] at [facility] Repeat for 39 weeks Repeat scheduled 01/18/25 at 8 am Assessment & Plan (07/26/2024 12:03 PM EST): Plans repeat Resolved Problems Problem Noted Date Diagnosed Date Resolved Date NST (non-stress test) nonreactive 01/01/2025 01/01/2025 Elevated glucose tolerance test 11/09/2024 01/01/2025 Overview (12/12/2024): Needs 3hr GTT- Elevated 3hr GTT- Now GDM Encounters Date Type Department Care Team Description 01/18/2025 8:00 AM EDT - 01/18/2025 9:40 AM EDT Surgery [address] [phone] Stanley Gee MD SECTION [[id number] (CPT )] 01/14/2025 [facility] - [address] [phone] Renuka Marquez CNM 01/10/2025 4:48 PM EDT Anesthesia Event [address] [phone] Lucas Sommer MD 01/10/2025 12:25 PM EDT - 01/11/2025 12:30 AM EDT Hospital Encounter [address] [phone] Stanley Gee MD Bretta, Leigh, MD Non-reassuring cardiotocographic tracing (Primary Dx) Discharge Disposition: [facility] 01/10/2025 11:00 AM EDT Routine Obstetrics & Gynecology - [address] [phone] Analisa Jacob CNM Supervision of high risk in third trimester (Primary Dx); 37 weeks gestation of ; Multigravida of advanced maternal age in third trimester; Diet controlled gestational diabetes mellitus (GDM) in third trimester; NST (non-stress test) nonreactive; NST (non-stress test) reactive 01/01/2025 2:18 PM EDT - 01/01/2025 5:12 PM EDT Hospital Encounter [facility] [address] [place] [address] Casandra Bajwa MD Discharge Disposition: Home or Self Care 01/01/2025 1:30 PM EDT Routine Obstetrics & Gynecology - [address] [phone] Zonia Bartlett DO 36 weeks gestation of (Primary Dx); Diet controlled gestational diabetes mellitus (GDM) in third trimester; Noncompliance; History of delivery; Obesity during ; Multigravida of advanced maternal age in third trimester 12/31/2024 [facility] [phone] Cammy Felton RN from Last 3 Months Immunizations Immunization Administration Dates Next Due Hepatitis B Pediatric (Enger ix B; Recombivax HB) to less than 20 yo 01/31/1998,09/21/1996 Influenza trivalent, with pr eservative (Fluzone; Afluria) 6mo and older 04/12/2000 MMR, measles mumps and rubel la Live (Priorix; M-M-R II) 12mo and older 09/21/1996 Moderna SARS-CoV-2 COVID-19, mRNA, LNP-S, preservative free 07/01/2021 Pneumococcal polysaccharide 23 valent (Pneumovax 23) 2yo and older 03/27/2019 Td Tetanus diptheria (Tdvax) 7yo and older 04/12,10/09/1999 Tdap Tetanus diptheria acell ular pertussis (Boostrix; Adacel) 7yo and older 11/08/2024 Surgical History Surgery Date Site/Laterality Comments OOPHORECTOMY [...] drink = 0.6 oz pur e alcohol) Housing Instability Answer Date Recorde d Are you worried that in the next 2 months you may not have stable housing? No 01/10/2025 Food Access & Nutrition Answer Date Rec orded Do you have access to a vari ety of food including fruits and vegetables? Yes 01/10/2025 Access to Healthcare Answer Date Record ed Within the last 3 months, ho rosa many times did you visit the emergency department for your medical care? 0 01/10/2025 Health Literacy Answer Date Recorded How often do you need to hav e someone help you when you read instructions, pamphlets, or other written material from your doctor or pharmacy? Never 01/10/2025 Caregiver: How often do you need to have someone help you when you read instructions, pamphlets, or other written material from your doctor or pharmacy? Not on file 01/10/2025 Financial Risk Answer Date Recorded How hard is it for you to pa y for the very basics like food, housing, medical care, and air conditioning / heating? Somewhat hard 01/10/2025 Transportation Answer Date Recorded Has the lack of transportati on kept you from meetings, work, or from getting things needed for daily living? Yes Has the lack of transportati on kept you from medical appointments or from getting medications? Yes 01/10/2025 Social Isolation Answer Date Recorded How often do you feel lonely or isolated from those around you? Sometimes 01/10/2025 Food Risk Answer Date Recorded Within the past 12 months we worried whether our food would run out before we got money to buy more. Never true 01/10/2025 Within the past 12 months th e food we bought just didn't last and we didn't have money to get more. Never true 01/10/2025 Dependent Care Answer Date Recorded Do you need help finding or paying for care for your loved ones. For example, child care cook or elderly care for an older adult? No 01/10/2025 Education Answer Date Recorded Do you think completing more education or training, like finishing a GED, going to college, or learning a trade, would be helpful for you? No 01/10/2025 Employment and Income Answer Date Recor ded During the last four weeks, have you been actively looking for work? No 01/10/2025 Living Situation Answer Date Recorded What is your living situation? Unrecognized valu e 01/10/2025 Interpersonal Safety Answer Date Record ed Physical Abuse Unrecognized value 01/10/2025 Verbal Abuse Unrecognized value 01/10/2025 Comments No Sex and Gender Information Value Date Recorded Sex Assigned at Female 08/28/2024 11:38 AM EST Legal Sex Female 10:45 PM EST Gender Identity Female 08/28/2024 11:38 AM EST Sexual Orientation Straight 08/28/2024 11 :38 AM EST Occupation Industry Job Start Date Job End Date student Not on file Not on file Not on file Obstetrics History Para Term AB IAB SAB Ectopic Multiple Livin g Live Births 3 2 2 0 1 0 2 2 Date Outcome GA Total Labor Labor/2nd/3rd Weight Sex Type Anes PTL Chikis A1 A5 Name Clin Ectopic 2008 Term 40w 0d M CS-Un spec Epidur al Livin g 2024 Term 37w 6d 5510 g (194.4 oz) M CS-LT ranv Spinal N Livin g 1 7 Manuel Harrington MD Complications: Intolera nce,Abnormal test Delivery Location:[facility]) Summary Episode Dates Number of Fetuses Estimated Date of Delivery 07/13/2024 - Present (03/27/2025) 1 01/25/2025 (based on Alternate TAURUS Entry) Dating Summary Based On TAURUS GA Diff Last Menstrual Period on 04/20/2024 (Approximate ) 01/25/2025 Same Alternate TAURUS Entry 01/25/2025 Working Comment:Date entered prior t o episode creation Overview and Plan :Shepard sex:Male Delivery Plans Post-Delivery Plans Planned delivery method: Feedin g intentions:Exclusive Formula Planned anesthesia:Spinal Circumcision r equested:Provider Performed Acceptable blood products:All Cord blood plans:Internal Lab Planned adoption:Not Applicable Vitals Pregravid Weight Height TWG (As of 03/27/2025) Pregrav id BMI 121 kg (267 lb) 1.676 m (66 ) 9.526 kg (21 lb) 43.12 Date GA Fund Present FHR Mvmt BP Weight Edema Alb Glu Ket Dil/ Eff/Sta 01/02/20 25 36w4d Inpatient data not displayed here. See encounter summary. 01/11/20 25 37w6d 128/8 0 131 kg 07/26/-3 01/11/20 25 37w6d Inpatient data not displayed here. See encounter summary. Notes Progress Notes - Routine Pre - 01/10/2025 - GA:37w6d 01/10/2025 - 37w6d - Analisa Jacob CNM Subjective Chief Complaint Patient presents with Routine Visit Rebeca Manuel is a 39 y.o. at 37w6d with a working estimated date of delivery of Estimated Date of Delivery: 01/25/25 by Last Menstrual Period who presents for a routine visit. She denies vaginal bleeding or leakage of fluid, denies uc. reports FM Some bh ctx Objective Physical Exam Vitals BP: 128/80 (pulse 105) Weight: 131 kg (288 lb) Fundal Height (cm): 37 cm Dilation/Effacement/Station Dilation: 1 Effacement (%): 30 Station: -3 Non-Stress Test A Reason for Non-Stress Test A: (ama, gdm, bmi) Variability in Waveform for Non-Stress Test A: (!) Minimal Decelerations in Non-Stress Test A: None Accelerations in Non-Stress Test A: No Baseline Heart Rate for Non-Stress Test A: 145 BPM Uterine Irritability for Non-Stress Test A: No Contractions in Non-Stress Test A: Irregular Ob check list: Tdap due: given Flu vaccine due: n/a If glucose completed: positive result gdma1 Gbs: pos Problem list reviewed. Assessment/Plan Supervision of high risk in third trimester (Primary) 37 weeks gestation of Multigravida of advanced maternal age in third trimester - nonstress test Diet controlled gestational diabetes mellitus (GDM) in third trimester - nonstress test NST (non-stress test) nonreactive - US Biophysical Profile wo Non Stress Test; Future NST (non-stress test) reactive C/s scheduled at 8am on 01/18 Sent to [facility] for bpp d/t nr nst dr gee notified Reassured about bh ctx and how to tolerate Rx vistaril for rest Reviewed with pt fkc and being vigilante about mvmt since pt is unable to go to last appt next wk d/t transportation issues and is already having to figure out transportation for c/s scheduled Progress Notes - Routine Pre - 01/01/2025 - GA:36w4d 01/01/2025 - 36w4d - Zonia Helms DO Rebeca is a 39yo at 36 4/7w presenting for ROSIBEL visit. complicated by AMA, maternal morbid obesity, non-compliant GDM and large for gestational age fetus. 3-hour was completed and failed on 12/11, Rebeca has not checked her blood sugars. Today she reports she would like to see if her CS can be moved up. Denies VB and LOF Visit Vitals BP 124/72 Comment: p 120 Wt 131 kg (289 lb) LMP 04/20/2024 (Approximate) BMI 46.65 kg/m OB Status Smoking Status Every Day BSA 2.34 m FHT: Baseline: 170 Variability: minimal Accels: 1 in 30 minutes Decels: None Contractions: None Interpretation: Non-Reactive Explained to Rebeca that gestational diabetes is caused by hormones in the placenta that cause maternal carbohydrate intolerance and therefore high blood sugars. Maternal high blood sugar results in high blood sugar. For reasons we do not fully understand, poorly controlled diabetes can result in demise. She expressed understanding. Additional maternal risks include but are not limited to: excessive weight gain, hemorrhage and diabetes later in life. risks include but are not limited to: macrosomia, shoulder dystocia, trauma, hypoglycemia and jaundice. Shoulder dystocia occurs when the head delivers vaginally or by CS but the shoulders become stuck requiring additional maneuvers to deliver the shoulders. This can result in transient or in very rare cases, permanent injury including but not limited to brachial plexus injury and clavicle fracture. In extraordinary circumstances,shoulder dystocia can result in / . In addition to poorly controlled GDM, she is AMA and morbidly obese, both of which increase her risk for poor /delivery outcome. Patient to be evaluated in triage for extended monitoring. Last ate at 1330 Zonia Bartlett DO Progress Notes - Routine Pre usman - 12/14/2024 - GA:34w0d 12/14/2024 - 34w0d - Amy Pacheco CNM Vitals BP: 108/80 Weight: 130 kg (286 lb) Assessment Heart Rate: 150 Fundal Height (cm): 37 cm Movement: Present Presentation: Cephalic Vaginal Drainage Leaking Fluid: No Rebeca Manuel at 34w0d presents for her routine ob visit. She is taking her PNV and baby asa as ordered. She denies VB/LOF/ucs. She reports + FM. She has the following concerns left leg sciatica and numbness in finger tips. Has not started sugars yet, has not gotten supplies. complicated by Obesity, GDMA1, AMA. Vital signs reviewed and are normal. Problem reviewed and updated. She will RTO in 1 week for weekly NSTs and in 2 for ob visit + NST or PRN. Reviewed with her s/s of labor/reasons to call triage. Reviewed 12/06/2024 growth scan EFW 3112 gm >99%tile repeat in 4 weeks. Reviewed GDM diet, and testing, encouraged her to pick and shovel man supplies. Repeat section scheduled 01/18/25 at 8 am Reviewed management of carpal tunnel in discussed otc wrist splint. Discussed tylenol and ice for sciatica, offered referral to PT. She declines. OB NST obesity, AMA, GDM A1 Baseline: 140 Variability: moderate Accels: 2 in 20mins up to 40mins Decels: Absent Ctx: none Findings: reactive Follow-up: weekly per protocol Amy Pacheco CNM Progress Notes - Routine Pre - 11/08/2024 - GA:28w6d 11/08/2024 - wd - Chela Abel MD OB Visit: 38 y.o. old female at 28w6d. Doing well. Appropriate FM. No LOF/VB/cramping. Her only new concern is using fast acting inhlaer twice weekly. She notes she is feeling SOB at times. She thinks it is her anxiety. No therapist. Was on meds prior to . Not sure bupoprion or buspirone. Will call us. She also has asthma, particularly worse with allergies. She has not been taking any allergy medications. She has been using her fast acting inhaler about twice weekly. She has been on inhaled steroid in the past. Otherwise healthy . Her BP is reviewed and is Normal. This patient has received syphilis testing during this . This patient does not require a urine drug screen. Desires Tubal: NA. Signs and symptoms of labor reviewed including reasons to call triage. Problem List reviewed and updated. RTO 4 weeks. Extrinsic asthma without complication Due to wheezing and worsening symptoms, as well as increasing frequency of fast acting inhaler use, will start inhaled corticosteroid. Start daily over the counter Claritin or Zyrtec for allergies Start budesonide inhaler twice daily for better asthma control Use fast acting inhaler as needed Follow up with your PCP in 1-2 weeks for your asthma Call 911 or go to the ED if you are having significant difficulty breathing Chela Villalba MD on 11/08/2024 at 3:20 PM EDT Progress Notes - Routine Pre - 10/11/2024 - GA:24w6d 10/11/2024 - wd - Renuka Marquez CNM OB Visit: Vitals BP: 116/76 Weight: 127 kg Assessment Fundal Height (cm): 25 cm Movement: Present Vaginal Drainage Leaking Fluid: No 38 y.o. old female at 24w6d. Doing well. Good FM. No LOF/VB/cramping. Her only new concern is some acid reflux, comfort measures reviewed. Papcid Rx sent. Taking PNV and ASA. Otherwise healthy . Her BP is reviewed and is Normal. Normal FAS. She does not require a urine drug screen. 28 week labs ordered. Signs and symptoms of labor reviewed including reasons to call triage. Problem List reviewed and updated. RTO 4 weeks. Patient is not planning to breast feed. Benefits of breast feeding were discussed at this visit. Renuka Marquez CNM on 10/11/2024 at 4:56 PM EDT Progress Notes - Routine Pre - 09/20/2024 - GA:21w6d 09/20/2024 - wd - Renuka Marquez CNM OB Visit: Vitals BP: 123/79 Weight: 125 kg (276 lb 6.4 oz) Assessment Heart Rate: 150 Fundal Height (cm): 21 cm Movement: Present Vaginal Drainage Leaking Fluid: No 38 y.o. old female at 21w6d. Doing well. She was last seen at 13 weeks for IP visit. States she wasn't given any appt and wasn't aware to schedule her visits. Taking PNV and ASA. Good FM. No LOF/VB/cramping. Her only new concern is None. She reports she is a cigg smoker, she is cutting down. Otherwise healthy . Her BP is reviewed and is Normal. She has upcoming FAS next week. She does require a urine drug screen. Ordered today. Signs and symptoms of labor reviewed including reasons to call triage. Problem List reviewed and updated. RTO 4 weeks. Renuka Marquez CNM on 09/20/2024 at 4:01 PM EDT Progress Notes - Initial Pre usman - 07/26/2024 - GA:13w6d 07/26/2024 - 13w6d - Chela Abel MD OB 12 week appt IP: S: Rebeca is a 38 y.o. year old here for IP visit. Her is unplanned. She and the father of the baby are happy. In [employer] [facility]. Patient's last menstrual period was [...] her last . Has a PCP at [facility]. Has never been admitted for asthma. Has [...] the first trimester and how to contact calculation clerk provider. Discussed the benefits of breast feeding and strongly encouraged to consider this. Counseled regarding the diagnosis of anomalies. She was offered a referral to maternal medicine for nuchal lucency/[place] testing. She already accepted the referral. RTO [...] to the above questions, is this for spiritism reasons? No Do you know what your [...] Manuel has also been informed of the optical effects line up person provider recommendation for first trimester nuchal lucency [...] Genetic Testing has been reviewed and the [employer] information sheet has been provided to the [...] Sign Reading Time Taken Comments Blood Pressure 117/73 01/10/2025 9:00 PM EDT Pulse 91 01/10/2025 9:00 PM EDT Temperature 36.3 C (97.4 F) 01/10/2025 7:30 PM EDT Respiratory Rate 13 01/10/2025 9:00 PM EDT Oxygen Saturation 99% 01/10/2025 8:32 PM EDT Inhaled Oxygen Concentration - - Weight 131 kg (288 lb) 01/10/2025 1:08 PM EDT Height 167.6 cm (5' 6 ) 01/10/2025 1:08 PM EDT Body Mass Index 46.48 01/10/2025 1:08 PM EDT Plan of Treatment Health Maintenance Due Date Last Done Comments Breast Cancer Screening 1984 Hepatitis B Vaccines (3 of 3 - 3-dose series) 03/28/1998 01/31/1998, 09/21/1996 HPV Vaccines (1 - 3-dose SCD M series) 12/04/2011 Pneumococcal Vaccine: Pediatrics (0 to 5 Years) and At-Risk Patients (6 to 49 Years) (2 of 2 - PCV) 03/27/2020 03/27/2019 Cholesterol Screening (Lipid Panel) 05/22/2024 Medicare Annual Wellness Visit 05/22/2024 COVID-19 Vaccine (3 - 2024-2 6 season) 2025 11/13/2021, 07/01/2021 Influenza Vaccine (#1) 2025 04/12/2000 Social Influencers of Health Screening 01/10/2026 01/10/2025 Cervical Cancer Screening: HPV 07/26/2029 07/26/2024 DTaP,Tdap,and Td Vaccines (4 - Td or Tdap) 11/08/2034 11/08/2024, 04/12/2000, 10/09/1999 RSV Immunization Adult Patients (1 - 1-dose 75+ series) 12/04/2059 MMR Vaccines Completed 09/21/1996 HIV Screening Completed 07/13/2024, 03/24/2018 Hepatitis C Screening Completed 07/13/2024 , 03/24/2018 Depression Screening Completed 07/24/2024 HIB Vaccines Aged Out No longer eligi [...] patient's age to complete this topic Meningococcal B Vaccine Aged Out No l onger eligible based on patient's age to complete this topic RSV Immunization Patients Under 20 months Aged Out No longer eligible b ased on patient's age to complete this topic Varicella Vaccines Aged Out No longer eligible based on patient's age to complete this topic Procedures Procedure Name Priority Date/Time Associated Diagnosis Comments CREATININE, SERUM Routine 01/10/2025 7:0 0 PM EDT LAVENDER - EDTA Routine 01/10/2025 6:54 PM EDT LT BLUE - NA CITRATE Routine 01/10/2025 6:54 PM EDT EXTRA TUBES Routine 01/10/2025 6:54 PM EDT ANESTHESIA SPINAL BLOCK Routine 01/10/2025 5:00 PM EDT UT DELIVERY ONLY 01/10/2025 4:41 PM EDT Case Notes NON REASSURING HEART TRACING TREPONEMA PALLIDUM ANTIBODY WITH REFLEX TO RPR AND PARTICLE AGGLUTINATION Routine 01/10/2025 3:40 PM EDT CBC WITH AUTO DIFFERENTIAL STAT 01/10/2025 3:40 PM EDT TYPE AND SCREEN STAT 01/10/2025 3:40 PM EDT CBC AND DIFFERENTIAL STAT 01/10/2025 3:40 PM EDT NONSTRESS TEST Routine 01/10/2025 11:45 AM EDT Multigravida of advanced maternal age in third trimester Diet controlled gestational diabetes mellitus (GDM) in third trimester JEFF URINE CULTURE TUBE STAT 01/01/2025 3:49 PM EDT URINALYSIS WITH REFLEX MICROSCOPIC AND CULTURE STAT 01/01/2025 3:49 PM EDT URINALYSIS WITH REFLEX MICROSCOPIC AND CULTURE STAT 01/01/2025 3:49 PM EDT CULTURE URINE STAT 01/01/2025 3:49 PM EDT HPV WITH REFLEX GENOTYPE Routine 07/26/2024 11:59 AM EST Screening for cervical cancer HEPATITIS C ANTIBODY Routine 07/13/2024 12:47 PM EST care, subsequent in first trimester HIV 1, 2 ANTIBODY, P24 ANTIGEN WITH REFLEX TO DIFFERENTIATION Routine 07/13/2024 12:47 PM EST care, subsequent in first trimester from Last 3 Months or Most Recently Relevant to Health Maintenance Results * Creatinine serum (01/10/2025 7:00 PM EDT) Creatinine 0.60 0.50 - 1.10 mg/dL LAB CHEMISTRY METHOD 01/10/2025 7:43 PM EDT [facility] eGFR 117 >=60 mL/min/1. 73m2 LAB CHEMISTRY METHOD 01/10/2025 7:43 PM EDT [facility] Comment:Calculation based on the Chronic Kidney Disease Epidemiology Collaboration (CKD-EPI) equation refit without adjustment for race. Blood Venous blood specimen / Unknown Venipuncture / Unknown 01/10/2025 7:00 PM EDT 01/10/2025 7:07 PM EDT Stanley Gee MD LAB BLOOD ORDERABLES Fi nal Result [facility] [address] [place] [address], [place] [phone] * Lavender tube (01/10/2025 6:54 PM EDT) Extra Tube Hold for add-ons. 01/10/2025 9:01 PM EDT [facility] Comment:Auto resulted. Blood Venous blood specimen / Unknown 01/10/2025 6:54 PM EDT 01/10/2025 7:08 PM EDT Stanley Gee MD LAB BLOOD ORDERABLES Fi nal Result [facility] [address] [place] [address], [place] [phone] * Light blue tube (01/10/2025 6:54 PM EDT) Extra Tube Hold for add-ons. 01/10/2025 9:01 PM EDT [facility] Comment:Auto resulted. Blood Venous blood specimen / Unknown 01/10/2025 6:54 PM EDT 01/10/2025 7:08 PM EDT us Stanley Gee MD LAB BLOOD ORDERABLES Fi nal Result [facility] [address] [place] [address], [place] [phone] * Spinal Block (01/10/2025 5:00 PM EDT) Narrative Lucas Sommer MD - 01/10/2025 5:00 PM EDT Lucas Sommer MD 01/10/2025 6:21 PM Spinal Block Patient location during procedure: OB Start time: 01/10/2025 5:00 PM End time: 01/10/2025 5:08 PM Reason for block: primary anesthetic and at surgeon's request Staffing Performed: resident/HELP DESK ADMINISTRATOR and anesthesiologist Anesthesiologist: Lucas Sommer MD Performed by: Lucas Sommer MD Authorized by: Lucas Sommer MD Preanesthetic Checklist Completed: patient identified, IV checked, risks and benefits discussed, surgical consent, monitors and equipment checked, pre-op evaluation and timeout performed Spinal Block Patient position: sitting Prep: ChloraPrep and site prepped and draped Patient monitoring: continuous pulse ox Approach: midline Injection technique: single-shot Needle Needle type: Terry Needle gauge: 24 G Needle length: 4 in Medications Administered bupivacaine 0.75%-dextrose 8.25% (SENSORCAINE) intrathecal injection - intrathecal 1.6 mL - 01/10/2025 5:00:00 PM fentaNYL (SUBLIMAZE) injection 50 mcg/mL - intravenous 10 mcg - 01/10/2025 5:00:00 PM morphine PF (DURAMORPH) injection 1 mg/mL - intrathecal 0.2 mg - 01/10/2025 5:00:00 PM Assessment Sensory level: T4 Additional Notes Positive CSF swirl. Lucas Sommer MD ANESTHESIA ORDERABLES Edited R esult - Final * Treponema pallidum antibody with reflex to RPR and particle agglutination (01/10/2025 3:40 PM EDT) [facility] T. Pallidum Antibodies Negative Negative LAB CHEMISTRY METHOD 01/10/2025 4:48 PM EDT [facility] Blood Venous blood specimen / Unknown Venipuncture / Unknown 01/10/2025 3:40 PM EDT 01/10/2025 3:40 PM EDT us Stanley Gee MD LAB BLOOD ORDERABLES Fi nal Result [facility] [address] [place] [address], [place] [phone] * (ABNORMAL) CBC auto differential (01/10/2025 3:40 PM EDT) [facility] WBC 10.2 4.8 - 10.8 K/mcL LAB HEMETOLOGY METHOD 01/10/2025 3:45 PM EDT [facility] RBC 4.70 3.80 - 4.80 M/mcL LAB HEMETOLOGY METHOD 01/10/2025 3:45 PM EDT [facility] Hemoglobin 12.7 11.5 - 16.0 g/dL LAB HEMETOLOGY METHOD 01/10/2025 3:45 PM EDT [facility] Hematocrit 39.1 35.0 - 47.0 % LAB HEMETOLOGY METHOD 01/10/2025 3:45 PM EDT [facility] MCV 82.8 79.0 - 98.0 FL LAB HEMETOLOGY METHOD 01/10/2025 3:45 PM EDT [facility] MCH 26.9(L) 27.0 - 32.0 pcg LAB HEMETOLOGY METHOD 01/10/2025 3:45 PM EDT [facility] MCHC 32.5 32.0 - 37.0 g/dL LAB HEMETOLOGY METHOD 01/10/2025 3:45 PM EDT [facility] RDW 15.4(H) 11.0 - 15.0 % LAB HEMETOLOGY METHOD 01/10/2025 3:45 PM EDT [facility] Platelets 159 130 - 400 K/mcL LAB HEMETOLOGY METHOD 01/10/2025 3:45 PM EDT [facility] MPV 13.0(H) 7.0 - 11.0 FL LAB HEMETOLOGY METHOD 01/10/2025 3:45 PM EDT [facility] NRBC 0.0 <1.0 % LAB [facility]EMETOLOGY [facility] NRBC Absolute 0.00 <0.10 K/mcL LAB HEMETOLOGY METHOD 01/10/2025 3:45 PM EDT [facility] Neutrophils Relative 71.9 % LAB HEMETOLOGY METHOD 01/10/2025 3:45 PM EDT [facility] Lymphocytes Relative 18.1 % LAB HEMETOLOGY METHOD 01/10[facility]2025 [facility] Monocytes Relative 7.3 % LAB HEMETOLOGY METHOD 01/10/2025 3:45 PM EDT [facility] Eosinophils Relative 2.0 % LAB HEMETOLOGY METHOD 01/10/2025 3:45 PM EDT [facility] Basophils Relative 0.3 % LAB HEMETOLOGY METHOD 01/10/2025 3:45 PM EDT [facility] Immature Granulocytes Relative 0.4 % LAB HEMETOLOGY METHOD 01/10/2025 3:45 PM EDT [facility] Neutrophils Absolute 7.36(H) 1.50 - 7.00 K/mcL LAB HEMETOLOGY METHOD 01/10/2025 3:45 PM EDT [facility] Lymphocytes Absolute 1.85 1.00 - 5.00 K/[facility] HEMETOLOGY METHOD 01/10/2025 3:45 PM EDT [facility] Monocytes Absolute 0.75 0.20 - 1.00 K/[facility] HEMETOLOGY METHOD 01/10/2025 3:45 PM EDT [facility] Eosinophils Absolute 0.20 0.00 - 0.50 K/[facility] HEMETOLOGY METHOD 01/10/2025 3:45 PM EDT [facility] Basophils Absolute 0.03 0.00 - 0.20 K/[facility] HEMETOLOGY METHOD 01/10/2025 3:45 PM EDT [facility] Immature Granulocytes Absolute 0.04(H) 0.00 - 0.03 K/[facility] HEMETOLOGY METHOD 01/10/2025 3:45 PM EDT [facility] Blood Venous blood specimen / Unknown Venipuncture / Unknown 01/10/2025 3:40 PM EDT 01/10/2025 3:41 PM EDT us Stanley Gee MD LAB BLOOD ORDERABLES Fi nal Result [facility] [address] [place] [address], * Type and screen (01/10/2025 3:40 PM EDT) ABO Group A 01/10/2025 4:49 PM EDT [facility] Rh Type Positive 01/10/2025 4:49 PM EDT [facility] Antibody Screen Negative 01/10/2025 4:49 PM EDT [facility] Blood Venous blood specimen / Unknown 01/10/2025 3:40 PM EDT 01/10/2025 4:10 PM EDT us Stanley Gee MD LAB BLOOD BANK TEST ORD ERABLES Final Result [facility] [address] [place] [address], [place] [phone] * nonstress test (01/10/2025 11:45 AM EDT) us Analisa Jcaob CNM IN CLINIC/BEDSIDE ORDERABLES Final Result * (ABNORMAL) Urinalysis with reflex microscopic and culture (01/01/2025 3:49 PM EDT) Specific Benson Urine 1.023 1.003 - 1.030 LAB URINALYSIS - AUTOMATED METHOD 01/01/2025 4:09 PM EDT [facility] pH, Urine 5.5 5.0 - 8.0 pH LAB URINALYSIS - AUTOMATED METHOD 01/01/2025 4:09 PM T [facility] Leukocytes, Urine Trace(A) Negative LAB URINALYSIS - AUTOMATED METHOD 01/01/2025 4:09 PM EDT [facility] Nitrite, Urine Negative Negative LAB URINALYSIS - AUTOMATED METHOD 01/01/2025 4:09 PM [facility] Protein, Urine Trace <=Trace mg/dL LAB URINALYSIS - AUTOMATED METHOD 01/01/2025 4:09 PM EDT [facility] Glucose, Urine Negative Negative mg/dL LAB URINALYSIS - AUTOMATED METHOD 01/01/2025 4:09 PM [facility] Ketones, Urine Trace(A) Negative mg/dL LAB URINALYSIS - AUTOMATED METHOD 01/01/2025 4:09 PM [facility] Urobilinogen, Urine 1.0 0.2 - 1.0 mg/dL LAB URINALYSIS - AUTOMATED METHOD 01/01/2025 4:09 PM T [facility] Bilirubin, Urine Small(A) Negative LAB URINALYSIS - AUTOMATED METHOD 01/01/2025 4:09 PM EDT [facility] Blood, Urine Negative Negative LAB URINALYSIS - AUTOMATED METHOD 01/01/2025 4:09 PM [facility] RBC, Urine 5.1(H) 0 - 4 /HPF LAB URINALYSIS - AUTOMATED METHOD 01/01/2025 4:09 PM EDT [facility] WBC, Urine 2.6 0 - 4 /HPF LAB URINALYSIS - AUTOMATED METHOD 01/01/2025 [facility] Squamous Epithelial, Urine >100(H) 0 - 60 /LPF LAB URINALYSIS - AUTOMATED METHOD 01/01/2025 4:09 PM [facility] Bacteria, Urine Negative Negative /HPF LAB URINALYSIS - AUTOMATED METHOD 01/01/2025 4:09 PM [facility] Hyaline Casts, Urine 4.0(H) 0 - 3 /LPF LAB URINALYSIS - AUTOMATED METHOD 01/01/2025 4:09 PM [facility] Urine Urine specimen obtained by clean catch procedure / Unknown Non-blood Collection / Unknown 01/01/2025 3:49 PM EDT 01/01/2025 3:59 PM EDT Casandra Bajwa MD LAB URINE ORDERABLES Final Resul t [facility] [address] [place] [address], * Jeff urine culture tube (01/01/2025 3:49 PM EDT) Extra Tube Hold for add-ons. 01/01/2025 5:01 PM EDT [facility] Comment:Auto resulted. Urine Urine specimen obtained by clean catch procedure / Unknown Non-blood Collection / Unknown 01/01/2025 3:49 PM EDT 01/01/2025 3:59 PM EDT us Casandra Bajwa MD LAB URINE ORDERABLES Final Resul t Performing Organization Address [facility] Co de Phone Number [facility] [address] [place] [address], [place] [phone] * Culture urine (01/01/2025 3:49 PM EDT) Pathologist [facility] Culture, Urine <10,000 cfu/ml, insignificant count, no further workup. 01/02/2025 2:18 PM EDT [facility] Urine Urine specimen obtained by clean catch procedure / Unknown Non-blood Collection / Unknown 01/01/2025 3:49 PM EDT 01/01/2025 4:09 PM EDT Casandra Bajwa MD LAB MICROBIOLOGY - GENERAL ORDER SAIGE Final Result Performing Organization Address [facility] de Phone Number [facility] [address] [place] [address], [place] [phone] * HPV with reflex genotype (07/26/2024 11:59 AM EST) [facility] HPV Negative Negative LAB MICROBIOLOGY METHOD 07/27/2024 2:58 PM EST [facility] Brushing/Spatula Cervix uteri structure / Unknown 07/26/2024 11:59 AM EST 07/27/2024 7:45 AM EST Chela Villalba MD LAB MOLECULAR DIAGNOSTICS O RDERABLES Final Result Performing Organization Address [facility] Co de Phone Number [facility] [address] [place] [address], [place] [phone] * Hepatitis C antibody (07/13/2024 12:47 PM EST) Hepatitis C Antibody Negative Negative LAB CHEMISTRY METHOD 07/13/2024 5:58 PM EST [facility] Blood Venous blood specimen / Unknown Venipuncture / Unknown 07/13/2024 12:47 PM EST 07/13/2024 12:47 PM EST us Chela Villalba MD LAB BLOOD ORDERABLES Final Result Performing Organization Address City/[facility]/ZIP Co de Phone Number [facility] [address] [place] [address], [place] [phone] * HIV 1,2 antibody, p24 antigen with reflex to differentiation (07/13/2024 12:47 PM EST) Pathologist [facility] HIV Combo AB/AG Negative Negative LAB CHEMISTRY METHOD 07/13/2024 5:59 PM EST [facility] Blood Venous blood specimen / Unknown Venipuncture / Unknown 07/13/2024 12:47 PM EST 07/13/2024 12:47 PM EST Narrative [facility] - 07/13/2024 5:59 PM EST This assay is a 4th generation assay allowing for earlier detection of HIV infection by detecting the presence of the HIV-1 p24 antigen as well as the traditional antibodies to HIV type 1 (including group O) and type 2. Use of a 4th generation assay is the current CDC recommendation for HIV screening. us Chela Villalba MD LAB BLOOD ORDERABLES Final Result Performing Organization Address City/[facility]/ZIP Co de Phone Number [facility] [address] [place] [address], [place] [phone] from Last 3 Months or Most Recently Relevant to Health Maintenance Insurance [facility] MEDICARE Member Subscriber Plan / Payer (Ef fective 2015-Present) Name:REBECA MANUEL Relation to Subscriber:Self Name:Rebeca Manuel Payer ID:[id number] Group ID:[id number] Type:Not on file Address: [facility] [address] [phone] Advance Directives * Full Code - Default (Latest Code Status on File) Date Activated Date Inactivated Comments 01/10/2025 3:05 PM 01/11/2025 3:38 AM This is orde r is used when code status has not been discussed with the patient, or code status is otherwise unknown/unconfirmed To update the patient's code status, place a code status order. Do not modify or discontinue any currently active code status orders. * Full Code - Default Date Activated Date Inactivated Comments 01/01/2025 3:12 PM 01/01/2025 7:18 PM This is order is used when code status has not been discussed with the patient, or code status is otherwise unknown/unconfirmed To update the patient's code status, place a code status order. Do not modify or discontinue any currently active code status orders. Care Teams Certification Engineer Relationship Specialty Start Date End Date Lisette Poon MD [address] [place] [phone] PCP - General Internal Medicine 06/14/24
--- OUTSIDE RECORDS SUMMARY | 2025-03-27 13:06 | XMS_ITS | Encounter Summary ---
Author Organization [facility] Address [address] [place], [place] [id number] Phone Care Team Providers Care Personnel Research Scientist Name Role Phone Unavailable Primary Care Provider Unavailabl e Encounter Details Date Type Department Care Team (Late st Contact Info) Description 12/20/2011 Documentation [facility] [place] [facility] [address] [place] [address] Family Medicine, Physician [facility] [place] [address] Social History Tobacco Use Types [...]
== END 2025-03-27 12:42 | disposition home or self-care (01) ==
LOC: HO.HMCH 11:31
PROVIDERS: PCP Internal Medicine; Visit Provider Internal Medicine
DX: M47.816 Spondylosis without myelopathy or radiculopathy, lumbar region (principal); Z00.00 Encounter for general adult medical examination without abnormal findings; O72.1 Other immediate postpartum hemorrhage

== ENCOUNTER 2025-03-27 11:31 | Outpatient (REF) | payer OTHER, SELFPAY ==
[2025-03-27 12:47] LABS: MANUAL DIFF FLAG NO
[2025-03-27 13:07] LABS: Hematocrit 37.6 % (37.0-47.0); Hemoglobin 12.2 g/dl (12.0-16.0); Imm Gran Abs Auto 0.04 X10*3/uL (0.00-0.03); Imm Gran Pct Auto 0.5 % (0.0-0.4); Lymphocytes Absolute Auto 2.3 X10*3/uL (1.2-4.9); Mean Corpuscular HGB Conc 32.4 g/dl (31.0-35.0); Mean Corpuscular Hemoglobin 26.0 pg (27.0-33.0); Mean Corpuscular Volume 80.0 fL (80.0-98.0); NRBC Abs Auto 0.000 X10*3/uL (0.0-0.012); NRBC Pct Auto 0.0 /100WBC (0.0-0.2); Platelet Count 238 X10*3/uL (160-400); Red Blood Count 4.70 X10*6/uL (4.20-5.50); White Blood Count 8.5 X10*3/uL (4.8-10.8)
[2025-03-27 13:57] LABS: Alanine Aminotransferase 28 U/L (0-31); Albumin Level 4.6 g/dL (3.5-5.0); Alkaline Phosphatase 96 U/L (39-117); Anion Gap 9 (12-20); Aspartate Amino Transferase 21 U/L (5-31); Blood Urea Nitrogen 8 mg/dL (9-16); Calcium 9.3 mg/dL (8.4-10.2); Carbon Dioxide 27 mmol/L (22-29); Chloride 107 mmol/L (96-108); Cholesterol 169 mg/dL (<200); Estimated Glomerular Filt Rate > 60; HDL Cholesterol 36 mg/dL (>40); Potassium 4.1 mmol/L (3.3-5.1); Sodium 139 mmol/L (135-145); Total Protein 7.3 g/dL (6.5-8.0); Triglycerides 137 mg/dL (<150)
[2025-03-27 14:08] LABS: Folate 12.0 ng/mL (> or = 4.0); Vitamin B12 503 pg/mL (200-900)
[2025-03-31 13:53] LABS: VITAMIN D (1,25 OH) D3 57 pg/mL; Vit D (1,25-Dihydroxy) Total 57 pg/mL (18-72); Vitamin D (1,25 OH) D2 <8 pg/mL
== END 2025-03-27 11:32 | disposition home or self-care (01) ==
LOC: HO.LAB 11:31
PROVIDERS: PCP Internal Medicine; Visit Provider Internal Medicine
DX: Z00.01 Encounter for general adult medical examination with abnormal findings (principal); Z13.1 Encounter for screening for diabetes mellitus; Z13.6 Encounter for screening for cardiovascular disorders; M47.816 Spondylosis without myelopathy or radiculopathy, lumbar region; O72.1 Other immediate postpartum hemorrhage; F41.9 Anxiety disorder, unspecified; J45.909 Unspecified asthma, uncomplicated; R20.0 Anesthesia of skin
CPT/HCPCS: 36415; 80053; 80061; 82607; 82652; 82746; 83036; 84443; 85025; 99212

== ENCOUNTER 2025-04-30 16:53 | Outpatient (REF) | payer OTHER, SELFPAY ==
--- NOTE | ~2025-04-30 | MR_ITS ---
EXAMINATION: MR LUMBAR SPINE WITHOUT CONTRAST CLINICAL INFORMATION: M 47.816. Spondylosis without myelopathy or radiculopathy. COMPARISON: None available. TECHNIQUE: MRI of the lumbar spine was obtained using routine sequences without contrast. FINDINGS: Last rib-bearing vertebra labeled T12. Bone marrow STIR signal abnormality within the posterior elements of L5 and to a lesser extent L4 extending into the pedicles, left greater than the right side. Disc desiccation, L4-5 and L5-S1. Focal hyperintense T2 signal in the posterior intervertebral disc, L4-5 and L5-S1 likely focal annular fissure. There is normal alignment. Conus medullaris ends at pedicle of L1 with normal signal. T12-L1: No disc herniation. No neuroforamina stenosis. L1-2: No disc herniation. No neuroforamina stenosis. Facet joint and ligamentum flavum hypertrophy. L2-3: Broad-based disc bulging. Facet joint and ligamentum flavum hypertrophy. No central spinal canal or neuroforamina stenosis. L3-4: Broad-based disc bulging. Facet joint and ligamentum flavum hypertrophy. Reduced AP diameter of the thecal sac and neuroforamina. No compression upon neural elements. L4-5: Oral phase disc bulging. Facet joint and ligamentum flavum hypertrophy. Reduced AP diameter of the thecal sac and neuroforamina likely encroaching the neural elements. Mild prominent epidural fat. L5-S1: Prominent epidural fat in a circumferential fashion. Broad-based disc bulging. Facet joint hypertrophy. Reduced AP diameter of the thecal sac and neuroforamina encroaching the neural elements. No prevertebral compartment hematoma, mass or fluid collections. Degenerative changes in the sacroiliac joints. There is a 20 mm isointense T1 and T2 nodular signal, right adrenal gland. Mild prominent left adrenal gland. MR/MR lumbar spine wo con IMPRESSION: Epidural lipomatosis from L4 to S1 pronounced at L5-S1 and associated spondylosis resulting in a central spinal canal and bilateral neuroforamina stenosis encroaching posterior compressing the exiting nerve roots at L5-S1 and encroaching the neural elements at L4-5. Concerning stress fractures, posterior elements/pedicles L4-5 and L5-S1. Nodular lesions in the adrenal glands, statistically may represent adenoma.. Electronically signed by: Nehemias Cisneros MD 05/01/2025 08:07 AM BELLA RP
--- OUTSIDE RECORDS SUMMARY | 2025-04-30 18:43 | XMS_ITS | Encounter Summary ---
Author Organization [facility] Address [address] [place] [phone] Phone Care Team Providers Care Automobile Upholsterer Name Role Phone Unavailable Primary Care Provider Unavailabl e Encounter Details Date Type Department Care Team (Late st Contact Info) Description 12/20/2011 Documentation [facility] [place] [address] [place] [address] Family Medicine, Physician [facility] [place] [address] Social History Tobacco Use Types [...]
--- OUTSIDE RECORDS SUMMARY | 2025-04-30 18:43 | XMS_ITS | Clinical Summary ---
Author Organization [facility] [address] [place] [address] [place] [phone] Phone Care Team Providers Care Senior Scientist Name Role Phone Lisette Poon MD Primary Care Provider [phone] Allergies No known active allergies Medications albuterol [...] 3- hr GTT Forward chart to P [id number] ([facility]) Diabetic teaching and visit with diabetic provider (Chem[facility] or [facility]) 4 times per day testing (fasting and 2 hour postprandial) to be reviewed weekly Goals: fasting <95, 2 hr PP <120 If > or = 1/3 elevated, send to diabetic provider for insulin therapy IF DIAGNOSED ON EARLY SCREENING: order a echocardiogram between 22-24 weeks Serial growth ultrasounds after diagnosis Soda Clerk on shoulder dystocia Deliver by 40 6/7 [...] her SOB worsens. care, [facility] 07/13/2024 Overview (12/24/2024): 1. [facility] site: [place] [facility]: [address] [place] [phone] ([phone]) 2. Delivery site: [facility] 3. Mobile Mommas: No 4. Dating criteria: [...] BMI of 50 by 28wks [place] [facility] [place] prophylaxis- Lovenox if CS and BMI [...] Overview (12/21/2024): 2009 FTP and NRF[facility] at [facility] Repeat for 39 weeks Repeat scheduled 01/18/25 at 8 am Assessment & Plan (07/26/2024 12:03 PM EST): Plans repeat Resolved Problems Problem Noted Date Diagnosed Date Resolved Date NST (non-stress test) nonreactive 01/01/2025 01/01/2025 Elevated glucose tolerance test 11/09/2024 01/01/2025 Overview (12/12/2024): Needs 3hr GTT- Elevated 3hr GTT- Now GDM Immunizations Immunization Administration Dates Next Due Hepatitis [...] ed Within the last 3 months, ho w many times did you visit the emergency [...] care for your loved ones. For example, childcare aide or elderly care for an older adult? [...] Spinal N Livin g 1 7 Manuel hurd La Karthikeyan moore MD Complications: Intolera nce,Abnormal test Delivery Location:[facility] Last Filed Vital Signs Vital Sign Reading [...] Recently Relevant to Health Maintenance Results * HPV with reflex genotype (07/26/2024 11:59 AM EST) HPV Negative Negative LAB MICROBIOLOGY METHOD 07/27/2024 2:58 PM EST [facility] Brushing/Spatula Cervix uteri structure / Unknown 07/26/2024 11:59 AM EST 07/27/2024 7:45 AM EST us Chela Villalba MD LAB MOLECULAR DIAGNOSTICS O RDERABLES Final Result Performing Organization Address City/[facility]/ZIP Co de Phone Number [facility] [address] [place] [address], [place] [phone] * Hepatitis C antibody (07/13/2024 12:47 PM EST) Pathologist [facility] Hepatitis C Antibody Negative Negative LAB CHEMISTRY METHOD 07/13/2024 5:58 PM EST [facility] Blood Venous blood specimen / Unknown Venipuncture / Unknown 07/13/2024 12:47 PM EST 07/13/2024 12:47 PM EST us Chela Villalab MD LAB BLOOD ORDERABLES Final Result Performing Organization Address City/[facility]/ZIP Co de Phone Number [facility] [address] [place] [address], [place] [phone] * HIV 1,2 antibody, p24 antigen with reflex to differentiation (07/13/2024 12:47 PM EST) HIV Combo AB/AG Negative Negative LAB CHEMISTRY METHOD 07/13/2024 5:59 PM EST [facility] Blood Venous blood specimen / Unknown Venipuncture / Unknown 07/13/2024 12:47 PM EST 07/13/2024 12:47 PM EST Narrative [facility] - 07/13/2024 5:59 PM EST [...] Villalba MD LAB BLOOD ORDERABLES Final Result [facility] [address] [place] [address], from Last 3 Months or Most Recently Relevant to Health Maintenance Insurance [facility] MEDICARE Member Subscriber Plan / Payer (Ef fective 2015-Present) Name:REBECA CABRERA Relation to Subscriber:Self Name:Rebeca Cabrera Payer ID:[id number] Group ID:[id number] Type:Not on file Address: [facility] [place] [phone] Advance Directives * Full Code - Default [...] currently active code status orders. Care Teams Senior Scientist Relationship Specialty Start Date End Date Lisette Poon MD [address] [place] [phone] PCP - General Internal Medicine 06/14/24
--- OUTSIDE RECORDS SUMMARY | 2025-04-30 18:43 | XMS_ITS | Clinical Summary ---
Author Organization [facility] Address [address] [place] [address] Phone Care Team Providers Care Television Antenna Installer Name Role Phone Unavailable Primary Care Provider [...]
== END 2025-04-30 16:54 | disposition home or self-care (01) ==
LOC: HO.MRI 16:53
PROVIDERS: PCP Internal Medicine; Visit Provider Internal Medicine
DX: M47.816 Spondylosis without myelopathy or radiculopathy, lumbar region (principal)
CPT/HCPCS: 72148

== ENCOUNTER → 2025-04-30 16:58 | Outpatient (BNV) | payer OTHER, SELFPAY | PROVIDERS: PCP Internal Medicine; Visit Provider Radiology Diagnostic Radiology | DX: M47.816 Spondylosis without myelopathy or radiculopathy, lumbar region (principal); M99.63 Osseous and subluxation stenosis of intervertebral foramina of lumbar region; E88.2 Lipomatosis, not elsewhere classified; E27.9 Disorder of adrenal gland, unspecified | CPT/HCPCS: 72148 ==

== ENCOUNTER 2025-05-06 10:50 | Outpatient (AMB) | payer OTHER, SELFPAY ==
--- NOTE | 2025-05-06 10:59 | HO.SPINEOV ---
Vital Signs 05/06/25 11:04 Height 5 ft 6 in Weight 287 lb BMI 46.3 Intake Visit Reasons: Benign lipomatous Intake Note: Ms. Cabrera is here today c/o back pain. MRI Done at [facility] [employer] Required: No Allergies No Known Allergies (No Known Allergies*) Allergy (Verified 05/06/25 11:05) Physical Exam Vital Signs: BMI result Body Mass Index 46.3 Assessment & Plan Assessment & Plan (1) Back pain: Code(s): M54.9 - Dorsalgia, unspecified Category: Medical Plan Dear Dr Fernando, Thank you for referring Mrs Cabrera to our office today. She is a very nice 39-year-old female presents to the office for evaluation of chronic low back pain that will radiate out laterally toward her SI joints and into her hips. The patient recently had a baby and the symptoms seemed to have been aggravated after that. She has a hard time bending, standing walking or sitting. She does get some relief if she sits an across the position and bends forward. She is a very hard time sleeping. She has to sleep upright in a chair more less. She has been taking Tylenol and some tizanidine but it does not seem to help much. She has been through previous conservative management in the form of therapy and cortisone injections. It looks like she had median branch blocks done by Dr. Ragland a few years ago as well as bilateral SI joint injections but nothing really helped. PMH: Otherwise healthy, history of asthma, cholecystectomy and a right ovary removed, left knee surgery Social hx: Smokes a few cigarettes a day, no alcohol or marijuana Medications: BuSpar, Zyrtec, Tylenol, albuterol, tizanidine and Ambien Allergies: None Physical exam: Awake alert oriented no acute distress, strength and reflexes are normal, she has pain with even minor manipulation of her leg or ranges of motion of her hips. Imaging review: Lumbar MRI done at [facility], reveals very mild disc degeneration, there is epidural lipomatosis at L4-5 and L5-S1, and there is minor stress reaction of the pedicles at L4-5 and L5-S1 Impression: 39-year-old morbidly obese female presents for evaluation of back pain, in the setting of just very mild MRI findings with disc degeneration. Epidural lipomatosis is an incidental finding and does not have any relation to her symptoms. This stress reaction seen on the STIR sequence from the pedicles is also just very mild and nonspecific. I do not have a source for her pain based on the imaging. Certainly she does not need surgery. There are things to her complaints that seem to be more in line with the SI joints as being the possible etiology, but unfortunately injections they have not helped so there is not any surgical intervention we can offer for that either. She thinks it maybe coming from her hip. There to hip CTs ordered. Unfortunately I do not have any way to help her symptoms. We would be happy to see her back down the road if something changes. Thank you for allowing us to care for your patient. The total time spent with this visit with this patient was 45 minutes reviewing history, physical exam, lumbar MRI imaging review, and implementation of treatment plan or further diagnostic testing Fabricio Mckeon MD,PhD [facility] Coding Level of Care Code New Pt Level 4 (78601) Diagnoses Back pain M54.9
[2025-05-06 11:04] VITALS: BMI 46.3
--- OUTSIDE RECORDS SUMMARY | 2025-05-06 12:59 | XMS_ITS | Encounter Summary ---
Author Organization [facility] Address [address] [place] [phone] Phone Care Team Providers Care Rotary Cutter Operator Name Role Phone Unavailable Primary Care Provider Unavailabl e Encounter Details Date Type Department Care Team (Late st Contact Info) Description 12/20/2011 Documentation [facility] [place] [address] [place] [address] Family Medicine, Physician [facility] [place] [address] Social History Tobacco Use Types [...]
--- OUTSIDE RECORDS SUMMARY | 2025-05-06 12:59 | XMS_ITS | Clinical Summary ---
Author Organization [facility] [address] [place] [address] [place] [phone] Phone Care Team Providers Care Hospital Admissions Officer Name Role Phone Liestte Pono MD Primary Care Provider [phone] Allergies No known active allergies Medications albuterol [...] 3- hr GTT Forward chart to P 544232 ([facility] [facility]) Diabetic teaching and visit with diabetic provider (Chemo or [facility]) 4 times per day testing (fasting and 2 hour postprandial) to be reviewed weekly Goals: fasting <95, 2 hr PP <120 If > or = 1/3 elevated, send to diabetic provider for insulin therapy IF DIAGNOSED ON EARLY SCREENING: order a echocardiogram between 22-24 weeks Serial growth ultrasounds after diagnosis Dray Driver on shoulder dystocia Deliver by 40 6/7 [...] her SOB worsens. care, [facility] 07/13/2024 Overview (12/24/2024): 1. [place] [facility]: [address] [place] [phone] ([phone]) 2. Delivery site: [facility] 3. Mobile Mommas: No 4. Dating criteria: [...] BMI of 50 by 28wks transfer to [facility] DVT prophylaxis- Lovenox if CS and BMI [...] Overview (12/21/2024): 2009 FTP and NRFHT at [facility] Repeat for 39 weeks Repeat scheduled [...] for your loved ones. For example, child daycare worker or elderly care for an older adult? [...] moore MD Complications: Intolera nce,Abnormal test Delivery Location:[facility] Last Filed Vital Signs Vital [...] LAB MICROBIOLOGY METHOD 07/27/2024 2:58 PM EST [facility] Brushing/Spatula Cervix uteri structure / Unknown 07/26/2024 11:59 AM EST 07/27/2024 7:45 AM EST us Chela Villalba MD LAB MOLECULAR DIAGNOSTICS O RDERABLES Final Result Performing Organization Address City/[facility]/ZIP Co de Phone Number [facility] [address] [place] [address], [place] [phone] * Hepatitis C antibody (07/13/2024 12:47 PM EST) Pathologist [facility] Hepatitis C Antibody Negative Negative LAB CHEMISTRY METHOD 07/13/2024 5:58 PM EST [facility] Blood Venous blood specimen / Unknown Venipuncture / Unknown 07/13/2024 12:47 PM EST 07/13/2024 12:47 PM EST us Chlea Villalba MD LAB BLOOD ORDERABLES Final Result Performing Organization Address City/[facility]/ZIP Co de Phone Number [facility] [address] [place] [address], [place] [phone] * HIV 1,2 antibody, p24 antigen with reflex to differentiation (07/13/2024 12:47 PM EST) HIV Combo AB/AG Negative Negative LAB CHEMISTRY METHOD 07/13/2024 5:59 PM EST [facility] Blood Venous blood specimen / Unknown Venipuncture / Unknown 07/13/2024 12:47 PM EST 07/13/2024 12:47 PM EST Narrative [facility] - 07/13/2024 5:59 PM EST [...] Villalba MD LAB BLOOD ORDERABLES Final Result [facility] [address] [place] [address], from Last 3 Months or Most Recently Relevant to Health Maintenance Insurance [facility] MEDICARE Member Subscriber Plan / Payer (Ef fective 2015-Present) Name:REBECA CABRERA Relation to Subscriber:Self Name:Rebeca Cabrera Payer ID:[id number] Group ID:[id number] Type:Not on file Address: [address] [facility] [place] [phone] Advance Directives * Full Code - Default [...] currently active code status orders. Care Teams Hospital Admissions Officer Relationship Specialty Start Date End Date Lisette Poon MD [address] [place] [phone] PCP - General Internal Medicine 06/14/24
--- OUTSIDE RECORDS SUMMARY | 2025-05-06 12:59 | XMS_ITS | Clinical Summary ---
Author Organization [facility] Address [address] [place] [address] Phone Care Team Providers Care Wheel And Pinion Inspector Name Role Phone Unavailable Primary Care Provider [...]
== END 2025-05-06 11:59 | disposition home or self-care (01) ==
LOC: HO.HNS 10:51
PROVIDERS: PCP Internal Medicine; Referring Provider Internal Medicine; Visit Provider Physician Assistant
DX: M54.9 Dorsalgia, unspecified (principal)
CPT/HCPCS: 99204

== ENCOUNTER → 2025-05-06 10:50 | Outpatient (BNVA) | payer OTHER, SELFPAY | PROVIDERS: PCP Internal Medicine; Referring Provider Internal Medicine; Visit Provider Physician Assistant | DX: M54.50 Low back pain, unspecified (principal) | CPT/HCPCS: 99202 ==

== ENCOUNTER 2025-05-19 09:30 | Emergency (ER) | payer OTHER, SELFPAY ==
--- NOTE | ~2025-05-19 | XR_ITS ---
CLINICAL HISTORY: lower back pain 3 views lumbar spine Comparison: MR/SR - MR LUMBAR SPINE WITHOUT IV CONTRAST - 04/30/25 16:53 EST Findings: No fractures or spondylolisthesis. Degenerative facet arthropathy L4 and L5. Disc spaces are maintained. Pedicles and transverse processes intact. Lordotic curvature is preserved. Normal bone mineralization. Normal soft tissues. Sacroiliac joints unremarkable. Impression: 1. No compression fractures or spondylolisthesis. Degenerative spondylosis. This document has been electronically signed by: Femi Stanton MD on 05/19/2025 10:26:35
[2025-05-19 09:36] VITALS: BP 117/96; PULSE 83; RESP 18; TEMP 36.3; O2SAT 99; BMI 37.1
--- OUTSIDE RECORDS SUMMARY | 2025-05-19 10:21 | XMS_ITS | Clinical Summary ---
Author Organization [facility] Address [address] [place] [address] Phone Care Team Providers Care Ice Cream Maker Name Role Phone Unavailable Primary Care Provider [...]
--- OUTSIDE RECORDS SUMMARY | 2025-05-19 10:22 | XMS_ITS | Clinical Summary ---
Author Organization [facility] [address] [place] [address] [place] [phone] Phone Care Team Providers Care Chamber Walker Name Role Phone Lisette Poon MD Primary Care Provider [phone] Allergies No known active allergies Medications albuterol [...] 3- hr GTT Forward chart to P 675806 ([place] [facility]) Diabetic teaching and visit with diabetic provider (Chemo or [facility]) 4 times per day testing (fasting and 2 hour postprandial) to be reviewed weekly Goals: fasting <95, 2 hr PP <120 If > or = 1/3 elevated, send to diabetic provider for insulin therapy IF DIAGNOSED ON EARLY SCREENING: order a echocardiogram between 22-24 weeks Serial growth ultrasounds after diagnosis Marble Machine Tender on shoulder dystocia Deliver by 40 6/7 [...] her SOB worsens. care, [facility] in [facility] 07/13/2024 Overview (12/24/2024): 1. [place]: [place] [facility]: [address] [place] [phone] ([phone]) 2. Delivery site: [facility] 3. Mobile Mommas: No 4. Dating criteria: [...] 2009 FTP and NRFHT at [facility] Repeat for 39 weeks Repeat scheduled 01/18/25 [...] for your loved ones. For example, child welfare worker or elderly care for an older [...] moore MD Complications: Intolera nce,Abnormal test Delivery Location:[facility] Last Filed Vital Signs [...] LAB MICROBIOLOGY METHOD 07/27/2024 2:58 PM EST [facility] Brushing/Spatula Cervix uteri structure / Unknown 07/26/2024 11:59 AM EST 07/27/2024 7:45 AM EST us Chela Villalba MD LAB MOLECULAR DIAGNOSTICS O RDERABLES Final Result Performing Organization Address City/[facility]/ZIP Co de Phone Number [facility] [address] [place] [address], [place] [phone] * Hepatitis C antibody (07/13/2024 12:47 PM EST) Pathologist [facility] Hepatitis C Antibody Negative Negative LAB CHEMISTRY METHOD 07/13/2024 5:58 PM EST [facility] Blood Venous blood specimen / Unknown Venipuncture / Unknown 07/13/2024 12:47 PM EST 07/13/2024 12:47 PM EST us Chela Villalba MD LAB BLOOD ORDERABLES Final Result Performing Organization Address City/[facility]/ZIP Co de Phone Number [facility] [address] [place] [address], [place] [phone] * HIV 1,2 antibody, p24 antigen with [...] [facility] [address] [place] [address], from Last 3 Months or Most Recently Relevant to Health Maintenance Insurance [facility] MEDICARE Member Subscriber Plan / Payer (Ef fective 2015-Present) Name:REBECA CABRERA Relation to Subscriber:Self Name:Rebeca Cabrera Payer ID:[id number] Group ID:[id number] Type:Not on file Address: [address] [facility] [place] [phone] Advance Directives * Full Code - Default [...] currently active code status orders. Care Teams Chamber Walker Relationship Specialty Start Date End Date Lisette Poon MD [address] [place] [phone] PCP - General Internal Medicine 06/14/24
--- OUTSIDE RECORDS SUMMARY | 2025-05-19 10:22 | XMS_ITS | Encounter Summary ---
Author Organization [facility] Address [address] [place] [address] Phone Care Team Providers Care Library Clerk Talking Books Name Role Phone Unavailable Primary Care Provider Unavailabl e Encounter Details Date Type Department Care Team (Late st Contact Info) Description 12/20/2011 Documentation [facility] Family Medicine [address] [place] [address] Family Medicine, Physician [facility] [place] [address] Social History Tobacco Use Types [...]
--- NOTE | 2025-05-19 10:54 | ED_ITS ---
HPI - Back Pain/Injury General Chief Complaint: Back Pain/Injury Stated Complaint: Back Pain Time Seen by Provider: 05/19/25 10:50 Source: patient, RN notes reviewed and old records reviewed Mode of arrival: ambulatory History of Present Illness ED Provider: Katherine Johnson PA-C HPI Narrative: 39-year-old female with a past medical history RA, obesity, anxiety, asthma, sciatica, presenting to the ED complaining of acute on chronic left-sided low back pain radiating down LLE x months, exacerbated after with delivery in December. Reports difficulty ambulating secondary to pain with associated numbness/ tingling to LLE. denies fever, chills, abdominal pain, nausea / vomiting, recent illness/trauma, incontinence /retention. States she has follow up with pain management this week and her PCP on May 27 Related Data Previous Rx's ?Medication ?Instructions ?Recorded zolpidem 5 mg tablet 5 mg PO BEDTIME PRN sleep 30 days 08/17/22 #30 tabs cetirizine 10 mg tablet (Zyrtec) 10 mg PO DAILY #30 ta bs 03/24/23 buspirone 7.5 mg tablet 7.5 mg PO BID 30 days #60 ta bs 02/07/24 albuterol sulfate 90 mcg/actuation 2 puff inhalation Q 4-6H PRN 08/08/24 aerosol inhaler shortness of breath or wheez ing #6.7 grams fluticasone propionate 50 1 spray intranasal DAILY 30 days 08/08/24 mcg/actuation nasal #16 grams spray,suspension (Flonase Allergy Relief) Ventolin HFA 90 mcg/actuation 2 puff inhalation Q6H LA N 08/11/24 aerosol inhaler (albuterol sulfate) shortness of breat h or wheezing 30 days #8 grams tizanidine 4 mg tablet 4 mg PO Q8H PRN muscle spast icity 02/17/25 30 days #90 tabs acetaminophen 650 mg 650 mg PO Q8H PRN pain (scal e 05/08/25 tablet,extended release score 4-6) 30 days #90 tabs acetaminophen 500 mg tablet 500 mg PO Q6H PRN fever or pain 05/19/25 (Tylenol Extra Strength) #14 tabs cyclobenzaprine 10 mg tablet 10 mg PO TID PRN muscle s pasm #10 05/19/25 tabs lidocaine 5 % topical patch 1 patch topical DAILY PRN pain #30 05/19/25 (Lidoderm) ea naproxen 500 mg tablet 500 mg PO BID PRN pain 10 da ys #20 05/19/25 tabs Allergies Allergy/AdvReac Type Severity Reaction Status Date / Time No Known Allergies (No Known Allergy Verified 05/19/25 09:36 Allergies*) Review of Systems Review of Systems: Yes all other systems are reviewed and are negative Constitutional: Constitutional: Reports as per HPI Neurologic: Denies Abnormal speech present [facility] Past Medical History Attestation statement: The following information was validated with the patient. Source: old records reviewed Medical History Back pain Bilateral sacroiliitis Rheumatoid arthritis Bleeding hemorrhoids Moderate recurrent major depression Bloody stools Left sided sciatica Morbid obesity Encounter for cholecystectomy section wound complication Obesity Gall bladder stones Anxiety Asthma Cholecystectomy planned Surgical History History of cholecystectomy Hx of removal of ovary Family History Family History Maternal Grandmother Esophageal cancer Father Heart attack Family/Other Mental health disorder Substance use disorder Family/Other No problems noted. Mother Lumbar degenerative disc disease Social History Social History Housing: Apartment Alcohol intake: former Patient Tobacco Use Status: Current someday Tobacco user Tobacco use type: Cigarette Cigarettes Per Day: 5 Smoked in Last 30 Days: Yes e-Cigarette/Vaping Use: Never Used Second Hand Smoke Exposure: No Use of substances other than those prescribed or required for medical reasons: No Advance Directives: No Advance Directives Information Provided: Yes service: No Current occupational status: unemployed Gender identity: Female Cognitive needs: No Hearing needs: No Vision needs: Yes Physical Exam Vital Signs: Vital Signs: Last Vital Signs Temp 97.3 F 05/19/25 13:14 Pulse 83 05/19/25 13:14 Resp 18 05/19/25 13:14 BP 117/96 H 05/19/25 13:14 Pulse Ox 99 05/19/25 13:14 O2 Del Method Room Air 05/19/25 13:14 BMI result Body Mass Index 37.1 Const: General: cooperative, healthy appearing and no acute distress Orientation/consciousness: patient oriented x3 Limitations: no limitations HEENT: Head: Yes normal to inspection and Yes atraumatic Ears: hearing grossly normal bilaterally General nose exam: Normal external nose present Face and sinus: Yes normal facial exam Eyes: General: appearance normal, both eyes and all related structures EOM: EOMs intact bilaterally Neck: Neck: Yes normal visual inspection and Yes no meningeal signs Resp: Effort & Inspection: normal respiratory effort and no respiratory distress Cardio: Rate: regular rate GI: Inspection: Yes normal to inspection Palpation (GI): Soft to palpation, nontender, no guarding and not rigid : General: Yes no CVA tenderness Back/Spine/Pelvis: Other: No midline cervical/thoracic/lumbar spinous tenderness/step-off or deformity. + left-sided lumbar MSK reproducible tenderness to palpation Back: no CVA tenderness Skin: Rashes: no rashes Wounds: no wounds Neuro: Other: Strength intact throughout. No saddle anesthesia. Sensation intact to light touch - decreased sensation to LLE. Neurovascular intact distally General: patient oriented x3, tone normal and no meningeal signs Cranial nerves: Yes CN's II-XII intact bilaterally Cognition (Neuro): normal cognition Speech: No Abnormal speech present Gait exam (Neuro): Antalgic g ait present Motor exam (neuro): 5/5 motor strength present throughout Extrem: General: Yes normal to inspection Course Course Course Narrative: XR lumbar spine 2-3V Impression: 1. No compression fractures or spondylolisthesis. Degenerative spondylosis. 12:52 PM 05/19/2025 (Katherine Johnson PA-C): on re-evaluation patient is sleeping comfortably in stretcher. Plan for discharge home with PCP/ pain management follow up as scheduled Results discussed with patient including worrisome signs and symptoms and strict return precautions, and when to return to the emergency department. They verbalized understanding and feel safe for discharge at this time. Medications Administered Discontinued Medications Generic Name Dose Route Start Last Admin Trade Name Freq PRN Reason Stop Dose Admin Cyclobenzaprine HCl 10 mg 05/19/25 11:07 05/19/25 11:28 Cyclobenzaprine Hcl 10 Mg Tablet PO 05/19/25 11:08 10 mg ONCE ONE Administration Ketorolac Tromethamine 30 mg 05/19/25 11:07 05/19/25 11:29 Ketorolac Tromethamine 30 Mg/Ml Vial IM 05/19/25 11:08 30 mg ONCE ONE Administration Lidocaine 1 patch 05/19/25 11:07 05/19/25 11:29 Lidocaine 4 % Patch Adh..Patch TRANSDERMA 05/19/25 11:08 1 patch ONCE ONE Administration Protocol Medical Decision Making Medical Decision Making [facility] Narrative: 39-year-old female with a past medical history RA, obesity, anxiety, asthma, sciatica, presenting to the ED complaining of acute on chronic left-sided low back pain radiating down LLE x months, exacerbated after with delivery in December. on exam vital signs stable, NAD, nontoxic appearing, no midline spinous tenderness or red flag symptoms. Ambulating with antalgic gait. Patient had MRI at our facility on 04/30. States she has follow up with pain management this week in 3 days. concern for MSK pain /spasming/ sciatica. Low suspicion for cauda equina/cord compression/epidural abscess plan: Pain control, UA Please refer to course for remaining clinical decision making, interpretation of labs/imaging results, and discussions with consultants and/or family members. Differential Diagnosis Differential Diagnoses: The differential diagnosis associated with the presentation includes As above Admission/Observation Consideration of admission/observation: Escalation of care including admission/observation considered Lab Data [facility] Lab Attestation statement: I reviewed the patient's lab results. Labs: Lab Results 05/19/25 Range/Units 11:36 Urine Color Yellow Urine Appearance Clear Urine pH 5.5 (5.0-9.0) Ur Specific [place] 1.025 (1.005-1.025) Urine Protein Negative (Neg-Trace) mg/dL Urine Glucose (UA) Negative (Negative) mg/dL Urine Ketones Negative (Negative) mg/dL Urine Blood Negative (Negative) Urine Nitrite Negative (Negative) Ur Leukocyte Esterase Negative (Negative) Urine Test NEGATIVE (NEGATIVE) Independent Interpretation I performed an independent interpretation of an: Plain X-Ray Radiology Impression Discussion of test interpretation with radiology: I have reviewed the radiologist's reading. External Record Review External record reviewed: Inpatient record, Office record, Outpatient record, Prior outpatient labs, Prior outpatient radiology, Primary care record and Outside ED record Tests considered The following testing was considered but not selected: As above Prescription Management I considered prescription management with: Pain Medication Chronic Conditions Patient?s care impacted by: Other Social Determinants Patient?s care significantly limited by Social Determinants of Health including: Problems related to primary support group Discharge Plan Discharge Clinical Impression: Acute on chronic low back pain Patient Disposition: Home, Self-Care Instructions: Acute Low Back Pain (ED) Additional Instructions: Please follow up with your PCP and pain management Flexeril is a muscle relaxer, take at night as it makes you drowsy, do not drive, drink alcohol, or operate machinery while taking it Naproxen as an anti-inflammatory / pain medication, take with food Lidoderm patches are numbing patches, apply to painful area In addition take Tylenol at home If symptoms persist or worsen, pain becomes unbearable, you developed urinary retention or incontinence, or weakness return to the ED Prescriptions: New cyclobenzaprine 10 mg tablet 10 mg PO TID PRN (Reason: muscle spasm) Qty: 10 0RF acetaminophen [Tylenol Extra Strength] 500 mg tablet 500 mg PO Q6H PRN (Reason: fever or pain) Qty: 14 0RF lidocaine [Lidoderm] 5 % adhesive patch,medicated 1 patch topical DAILY MDD remove after 12 hours PRN (Reason: pain) Qty: 30 0RF Rx Instructions: leave on most painful area for up to 12 hrs naproxen 500 mg tablet 500 mg PO BID PRN (Reason: pain) 10 Days Qty: 20 0RF No Action cetirizine [Zyrtec] 10 mg tablet 10 mg PO DAILY Qty: 30 3RF buspirone 7.5 mg tablet 7.5 mg PO BID 30 Days Qty: 60 0RF albuterol sulfate [Ventolin HFA] 90 mcg/actuation HFA aerosol inhaler 2 puff inhalation Q6H PRN (Reason: shortness of breath or wheezing) 30 Days Qty: 8 1RF tizanidine 4 mg tablet 4 mg PO Q8H PRN (Reason: muscle spasticity) 30 Days Qty: 90 8RF acetaminophen 650 mg tablet extended release 650 mg PO Q8H PRN (Reason: pain (scale score 4-6)) 30 Days Qty: 90 0RF zolpidem 5 mg tablet 5 mg PO BEDTIME PRN (Reason: sleep) 30 Days Qty: 30 0RF albuterol sulfate 90 mcg/actuation HFA aerosol inhaler 2 puff inhalation Q4-6H PRN (Reason: shortness of breath or wheezing) Qty: 6.7 0RF fluticasone propionate [Flonase Allergy Relief] 50 mcg/actuation spray,suspension 1 spray intranasal DAILY 30 Days Qty: 16 3RF Rx Instructions: administer into each nostril Referrals: [facility] Pain Management [Provider Group, Pain Management] Lisette Reynaga MD [Primary Care Provider, Internal Medicine] Interventions: ED Discharge Assessment Last Done: 05/19/25 13:14 Discharge Date/Time: 05/19/25 13:15 Print Language: Chinese
[2025-05-19] MEDS: Lidocaine 4 % Patch ADH..PATCH 1 PATCH TRANSDERMA (11:29)
[2025-05-19 11:47] LABS: Appearance Urine Clear; Glucose Urine UA Negative (Negative); PH 5.5 (5.0-9.0); Specific Gravity - Urine 1.025 (1.005-1.025)
[2025-05-19 11:49] LABS: UPreg QC Valid YES
[2025-05-19 13:14] VITALS: BP 117/96; PULSE 83; RESP 18; TEMP 36.3; O2SAT 99
== END 2025-05-19 13:15 | disposition home or self-care (01) ==
PROVIDERS: Physician Assistant; Emergency Provider Emergency Medicine Emergency Medical Services; PCP Internal Medicine
DX: M54.50 Low back pain, unspecified (principal); M79.605 Pain in left leg; M79.604 Pain in right leg; R20.0 Anesthesia of skin; F17.210 Nicotine dependence, cigarettes, uncomplicated; Z79.899 Other long term (current) drug therapy
CPT/HCPCS: 72100; 81003; 81025; 96372; 99284; J1885

== ENCOUNTER → 2025-05-19 10:09 | Outpatient (BNV) | payer OTHER, SELFPAY | PROVIDERS: PCP Internal Medicine; Visit Provider Radiology Diagnostic Radiology | DX: M47.817 Spondylosis without myelopathy or radiculopathy, lumbosacral region (principal) | CPT/HCPCS: 72100 ==

== ENCOUNTER 2025-06-12 10:47 | Outpatient (AMB) | payer OTHER, SELFPAY ==
--- NOTE | 2025-06-12 11:03 | MHC.OFFVIS ---
Vital Signs 06/12/25 11:04 Height 5 ft 6 in Weight 295 lb BMI 47.6 BP 132/74 Blood Pressure Location Lt radial Position Sitting Respiration 16 Pulse 99 Pulse Source Pulse Oximeter Pulse Oximetry (%) 98 Oxygen Delivery Method Room Air Intake Visit Reasons: f/u after spine ctr visit Blueprint Assembler Required: No Allergies No Known Allergies (No Known Allergies*) Allergy (Verified 06/12/25 11:05) Medication List - Last Reconciled 06/12/25 by Divya Moreno LPN acetaminophen (Tylenol Extra Strength) 500 mg PO Q6H PRN albuterol sulfate 90 mcg/actuation 2 puffs inhalation Q4-6H PRN buspirone 7.5 mg PO BID 30 days cetirizine (Zyrtec) 10 mg PO DAILY cyclobenzaprine 10 mg PO TID PRN fluticasone propionate 50 mcg/actuation (Flonase Allergy Relief) 1 spray intranasal DAILY 30 days lidocaine 5% (Lidoderm) 1 patch topical DAILY PRN MDD remove after 12 hours naproxen 500 mg PO BID PRN 10 days HPI HPI f/u after spine ctr visit: Details: History of Present Illness The patient is a 39-year-old female presenting for evaluation and management of chronic low back and hip pain. She has a history of these issues for years and has previously undergone sacroiliac joint injections and lumbar medial branch blocks with minimal relief. A recent MRI of her spine was reviewed and noted to be unremarkable for spinal stenosis. She reports numbness in one of her legs, which she describes as an acidity sensation. She experiences pain in her hips and inner joints, which is exacerbated by prolonged sleeping or standing. Due to pain, she sleeps sitting down. Her symptoms are worse in the cold, and she also notes waking with stiffness that requires stretching to mobilize. Her pain limits her ability to perform daily activities, including walking fast, standing for long periods, and mopping. She recently had a 12-pound baby and had a subsequent infection, which delayed her evaluation. Pain Description - Location: The patient reports pain in her hips, inner joints, and lower back. - Radiation: When her back pain is present, she also experiences pain in the bottom of her feet. - Quality: She describes numbness and an acidity sensation in her leg. - Associated symptoms: She feels needles and a pinch when pressing on her posterior iliac crest area. - Exacerbating factors: Pain is worse with prolonged sleeping or standing, and with activities like mopping. - Relieving factors: She obtains some temporary relief by moving her hip sideways and must sleep sitting down. - Interference with function: The pain affects her ability to walk fast, stand, perform chores, and forces her to sleep sitting up. Physical Exam - Back: Palpation of the posterior iliac spine region bilaterally elicits tenderness and a tingling sensation. Results - Imaging: - Lumbar MRI: Reviewed during visit, shows degenerating discs. There is no evidence of spinal stenosis. Pain Management: - Affect: The patient states the pain makes her feel old and that her life is not the same. - Analgesia: She reports prior sacroiliac joint injections and lumbar medial branch blocks did not provide much relief. - Activities of Daily Living: Pain interferes with her ability to walk fast, stand for prolonged periods, and perform structural steel fitter like mopping. - Functional limitations: She has to sleep sitting down due to pain. - Aberrant Drug Related Behaviors: None discussed. [facility] Medical History Back pain Bilateral sacroiliitis Rheumatoid arthritis Bleeding hemorrhoids Moderate recurrent major depression Bloody stools Left sided sciatica Morbid obesity Encounter for cholecystectomy section wound complication Obesity Gall bladder stones Anxiety Asthma Cholecystectomy planned Surgical History History of cholecystectomy Hx of removal of ovary Family History Maternal Grandmother Esophageal cancer Father Heart attack Family/Other Mental health disorder Substance use disorder Family/Other No problems noted. Mother Lumbar degenerative disc disease Social History Housing: Apartment Alcohol intake: former Patient Tobacco Use Status: Current someday Tobacco user Tobacco use type: Cigarette Cigarettes Per Day: 5 e-Cigarette/Vaping Use: Never Used Second Hand Smoke Exposure: No service: No Current occupational status: unemployed Gender identity: Female Cognitive needs: No Hearing needs: No Vision needs: Yes Female Reproductive History Menstrual Age of Menarche: 10 Physical Exam Vital Signs: Last Vital Signs Pulse 99 06/12/25 11:04 Resp 16 06/12/25 11:04 BP 132/74 06/12/25 11:04 Pulse Ox 98 06/12/25 11:04 Oxygen Delivery Method Room Air 06/12/25 11:04 BMI result Body Mass Index 47.6 Assessment & Plan Assessment & Plan (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 1. Chronic Low Back And Hip Pain - The pain is suspected to be from a potential superior cluneal neuropathy given her tenderness and tingling with palpation over the posterior iliac crest. - A diagnostic bilateral superior cluneal nerve block will be performed in the office under ultrasound guidance. - The outcome of this injection will help confirm or rule out this diagnosis as the source of her pain. 2. Meralgia Paresthetica - The numbness in her thigh is attributed to compression of the lateral femoral cutaneous nerve, likely due to her abdomen resting on her thigh. - Management will focus on conservative measures including weight loss and lifestyle modifications. 3. General Wellness And Pain Management - Long-term solutions for her degenerative disc disease and overall pain were discussed, focusing on reducing pressure on her discs. - Recommendations include weight loss, exercise, acupuncture, and weightless exercises such as swimming or walking in a pool. - The patient has independently scheduled a CT scan of her hips for July 05. Discussion Notes I reviewed the patient's lumbar MRI with her and explained that it shows degenerative disc changes but no evidence of spinal stenosis. I explained that her thigh numbness is characteristic of meralgia paresthetica, likely from compression of a nerve in her groin area. Given her focal tenderness over the posterior iliac crest, I suspect a component of her pain may be from cluneal neuropathy. I proposed a diagnostic bilateral superior cluneal nerve block to be performed in the office. I informed her that if the block provides relief, it confirms the diagnosis, and if it does not, we will continue to investigate other causes. We discussed long-term management strategies, emphasizing weight loss and weightless exercises like swimming or pool walking to reduce pressure on her spine, as well as acupuncture. We will arrange for her to have the procedure scheduled. Patient Instructions - We will schedule an appointment for an injection in your lower back area to help diagnose the cause of your pain. - Your imaging (MRI) does not show any severe narrowing around your nerves, a condition called spinal stenosis. - The numbness in your thigh is likely from a pinched nerve in your groin area. - For long-term pain improvement, focus on weight loss and exercise. - Activities like swimming, walking in a pool, and acupuncture are recommended to help with your pain. - Follow up on the CT scan you scheduled for July 05. Coding Level of Care Code New Pt Level 4 (96982) Diagnoses Cluneal neuropathy G58.8 Meralgia paresthetica of left side G57.12
[2025-06-12 11:04] VITALS: BP 132/74; PULSE 99; RESP 16; O2SAT 98; BMI 47.6
--- OUTSIDE RECORDS SUMMARY | 2025-06-12 13:58 | XMS_ITS | Clinical Summary ---
Author Organization [facility] Address [address] [place] [address] Phone Care Team Providers Care Turbine Subassembler Name Role Phone Unavailable Primary Care Provider [...]
--- OUTSIDE RECORDS SUMMARY | 2025-06-12 13:58 | XMS_ITS | Encounter Summary ---
Author Organization [facility] Address [address] [place] [phone] Phone Care Team Providers Care Typewriters Functional Tester Name Role Phone Unavailable Primary Care Provider Unavailabl e Encounter Details Date Type Department Care Team (Late st Contact Info) Description 12/20/2011 Documentation [facility] [address] [place] [address] Family Medicine, Physician [facility] [place] [address] Social History Tobacco Use Types [...]
--- OUTSIDE RECORDS SUMMARY | 2025-06-12 13:58 | XMS_ITS | Clinical Summary ---
Author Organization [facility] [address] [place] [address] [place] [phone] Phone Care Team Providers Care Field Control Inspector Name Role Phone Lisette Poon MD Primary Care Provider [phone] Allergies No known active allergies Medications albuterol [...] 3- hr GTT Forward chart to P [id number] ([facility]) Diabetic teaching and visit with diabetic provider (Chemo or [facility]) 4 times per day testing (fasting and 2 hour postprandial) to be reviewed weekly Goals: fasting <95, 2 hr PP <120 If > or = 1/3 elevated, send to diabetic provider for insulin therapy IF DIAGNOSED ON EARLY SCREENING: order a echocardiogram between 22-24 weeks Serial growth ultrasounds after diagnosis Yard Labor Supervisor on shoulder dystocia Deliver by 40 6/7 [...] her SOB worsens. care, subsequent in [facility] 07/13/2024 Overview (12/24/2024): 1. [place]: [place] [facility]: [address] [place] [id number] ([phone]) 2. Delivery site: [facility] 3. Mobile Mommas: No 4. [...] BMI of 50 by 28wks transfer to [facility] [place] DVT prophylaxis- Lovenox if CS and BMI [...] Overview (12/21/2024): 2009 FTP and NRFHT at [facility] Repeat for 39 weeks Repeat scheduled [...] for your loved ones. For example, childcare provider or elderly care for an older adult? [...] nce,Abnormal test Delivery Location:[facility] Last Filed Vital Signs [...] MICROBIOLOGY METHOD 07/27/2024 2:58 PM EST [facility] Brushing/Spatula Cervix uteri structure / Unknown 07/26/2024 11:59 AM EST 07/27/2024 7:45 AM EST us Chela Villalba MD LAB MOLECULAR DIAGNOSTICS O RDERABLES Final Result Performing Organization Address City/[facility]/ZIP Co de Phone Number [facility] [address] [place] [address], [place] [phone] * Hepatitis C antibody (07/13/2024 12:47 PM EST) Pathologist [facility] Hepatitis C Antibody Negative Negative LAB CHEMISTRY METHOD 07/13/2024 5:58 PM EST [facility] Blood Venous blood specimen / Unknown Venipuncture / Unknown 07/13/2024 12:47 PM EST 07/13/2024 12:47 PM EST us Chela Villalba MD LAB BLOOD ORDERABLES Final Result Performing Organization Address City/[facility]/ZIP Co de Phone Number [facility] [address] [place] [address], [place] [phone] * HIV 1,2 antibody, p24 antigen with reflex to differentiation (07/13/2024 12:47 PM EST) HIV Combo AB/AG Negative Negative LAB CHEMISTRY METHOD 07/13/2024 5:59 PM EST [facility] Blood Venous blood specimen / Unknown Venipuncture / Unknown 07/13/2024 12:47 PM EST 07/13/2024 12:47 PM EST Narrative [facility] - 07/13/2024 5:59 PM EST [...] MD LAB BLOOD ORDERABLES Final Result [facility] [address] [place] [address], from Last 3 Months or Most Recently Relevant to Health Maintenance Insurance [facility] MEDIC[facility] Member Subscriber Plan / Payer (Ef fective 2015-Present) Name:REBECA CABRERA Relation to Subscriber:Self Name:Rebeca Cabrera Payer ID:[id number] Group ID:[id number] Type:Not on file Address: [facility] [place] [id number] Advance Directives * Full Code - Default [...] currently active code status orders. Care Teams Field Control Inspector Relationship Specialty Start Date End Date Lisette Poon MD [address] [place] [phone] PCP - General Internal Medicine 06/14/24
== END 2025-06-12 11:37 | disposition home or self-care (01) ==
LOC: HO.PMC 10:48
PROVIDERS: PCP Internal Medicine; Visit Provider Internal Medicine
DX: G58.8 Other specified mononeuropathies (principal); G57.12 Meralgia paresthetica, left lower limb
CPT/HCPCS: 99204

== ENCOUNTER → 2025-06-12 10:47 | Outpatient (BNVA) | payer OTHER, SELFPAY | PROVIDERS: PCP Internal Medicine; Visit Provider Internal Medicine | DX: G57.12 Meralgia paresthetica, left lower limb (principal); G58.8 Other specified mononeuropathies | CPT/HCPCS: 99202 ==